=== PATIENT | female | born 1960 | race Caucasian/White ===

== ENCOUNTER 2018-11-06 09:13 | Inpatient (IN) ==
--- NOTE | 2018-09-24 10:06 | PAT Medication Instructions ---
Medication Instructions Date of Service September 24, 2018 Home Medications acetaminophen 1,000 mg PO Q6H PRN albuterol sulfate 2 puff INHALATION Q6H PRN atorvastatin 20 mg PO QAM buspirone 5 mg PO TID clonidine HCl 0.2 mg PO HS fluticasone propion-salmeterol [Advair Diskus] 1 inh INHALATION BID PRN furosemide [Lasix] 40 mg PO TID gabapentin 300 mg PO TID hydrocodone-acetaminophen [[place]] 1 tab PO Q6H PRN lisinopril 10 mg PO QAM loratadine 10 mg PO QAM meloxicam 15 mg PO QAM potassium chloride 10 meq PO TID ASK your surgeon for instructions meloxicam 15 mg PO QAM DO NOT take the morning of surgery furosemide [Lasix] 40 mg PO TID lisinopril 10 mg PO QAM loratadine 10 mg PO QAM potassium chloride 10 meq PO TID Take morning of surgery With a small sip of water, OTHERWISE NOTHING TO EAT OR DRINK AFTER MIDNIGHT: acetaminophen 1,000 mg PO Q6H PRN (if needed, may be taken up to four hours before surgery) albuterol sulfate 2 puff INHALATION Q6H PRN (if needed, and bring with you to the hospital) atorvastatin 20 mg PO QAM buspirone 5 mg PO TID fluticasone propion-salmeterol [Advair Diskus] 1 inh INHALATION BID PRN (if needed) gabapentin 300 mg PO TID hydrocodone-acetaminophen [[place]] 1 tab PO Q6H PRN (if needed) Take evening before surgery acetaminophen 1,000 mg PO Q6H PRN (if needed) albuterol sulfate 2 puff INHALATION Q6H PRN (if needed) buspirone 5 mg PO TID clonidine HCl 0.2 mg PO HS fluticasone propion-salmeterol [Advair Diskus] 1 inh INHALATION BID PRN (if needed) furosemide [Lasix] 40 mg PO TID gabapentin 300 mg PO TID hydrocodone-acetaminophen [[place]] 1 tab PO Q6H PRN (if needed) potassium chloride 10 meq PO TID Other Notes If you have any questions please call us at [phone] or [phone] or [phone] or [phone]
--- NOTE | 2018-09-24 11:13 | Anesthesiology Consultation ---
Date of Service September 24, 2018 Assessment & Plan (1) Encounter for pre-operative examination: Pending surgeon ordered clearances: PCP (Andre) 09/25 Cardio (Dayana) 09/25 Pulm (Mary) 09/26 PER SURGEONS OFFICE PATIENT WAS NOT CLEARED AND SURGERY IS BEING CANCELED. Chart Review Chart Review: Pending: Refer to Additional Notes / Consult section and Patient seen in Pre Admission Testing Teaching & Discussion Instructed NPO after midnight before surgery, except medications with 15 cc of water. Medication instructions provided according to the PAT guidelines. History Surgery Operation Date: 10/04/18 07:30 Proposed Procedures p Right Robotic Laparoscopic Assisted Partial Nephrectomy - Rene Carroll II, DO Height/Weight Height: 5 ft 6 in Weight: 175.9 kg Allergies Allergy/AdvReac Type Severity Reaction Status Date / Time acetaminophen [From Percocet] AdvReac Vomiting Verified 09/19/18 10:10 oxycodone [From Percocet] AdvReac Vomiting Verified 09/19/18 10:10 Medications Home Medications Medication Instructions Recorded Confirmed Last Taken acetaminophen 1,000 mg PO Q6H PRN 09/19/18 09/19/18 Unknown albuterol sulfate 2 puff INHALATION Q6H PRN 09/19/18 09/19/18 Unknown atorvastatin 20 mg PO QAM 09/19/18 09/19/18 Unknown buspirone 5 mg PO TID 09/19/18 09/19/18 Unknown clonidine HCl 0.2 mg PO HS 09/19/18 09/19/18 Unknown fluticasone propion-salmeterol 1 inh INHALATION BID PRN 09/19/18 09/19/18 Unknown [Advair Diskus] furosemide [Lasix] 40 mg PO TID 09/19/18 09/19/18 Unknown gabapentin 300 mg PO TID 09/19/18 09/19/18 Unknown hydrocodone-acetaminophen [[place]] 1 tab PO Q6H PRN 09/19/18 09/19/18 Unknown lisinopril 10 mg PO QAM 09/19/18 09/19/18 Unknown loratadine 10 mg PO QAM 09/19/18 09/19/18 Unknown meloxicam 15 mg PO QAM 09/19/18 09/19/18 Unknown potassium chloride 10 meq PO TID 09/19/18 09/19/18 Unknown levothyroxine [Synthroid] 75 mcg PO QAM 09/24/18 09/24/18 Unknown Past Medical History Medical History Anxiety Asthma CHF (congestive heart failure) 2015 acute diastolic, pt reports 2/2 sleep apnea. Seeing cardiology prior to surgery. Cervical radiculitis Pain radiating down LUE Chronic back pain radiates down RLE. Depression HTN (hypertension) Hyperlipidemia Kidney function abnormal Kidney mass Rt Lower extremity weakness RLE - chronic, 2/2 lumbar radiculopathy/spinal stenosis Obesity On home oxygen therapy 3 LPM QHS with CPAP. Has portable O2 to use prn daytime, but has not used Seasonal allergies Sleep apnea CPAP Exercise / Class Metabolic Activity II 4-5 Yardwork/Stairs/Walk up hill (Goes up full flight of stairs daily, denies CP or SOB with this, but activity is limited overall by pain) Past Family History Family History Mother Cancer Aunt Cancer Uncle Cancer Past Surgical History Surgical History History of appendectomy History of cholecystectomy History of fusion of cervical spine History of shoulder surgery left History of tonsillectomy History of tubal ligation Past Anesthesia History No Family Hx of Anesthesia Complications and Other Pt reports waking up "on a ventilator" in the ICU after 2016 cholecystectomy but is unsure why. Has had sedation for colonoscopies since without issue but no other GA since. History of PONV No Hx of PONV and No Hx of Motion Sickness Social History Smoking Status: Current every day smoker tobacco type: cigarettes Smoking cigarettes per day: 1/2 ppd Do You Dip or Chew Tobacco: No Hx Alcohol Use: No Hx Substance Use: No Review of Systems Pt denies any recent chest pain, shortness of breath, palpitations, cough, fever or URI. Physical Exam Vital Signs BP: 112/73 P: 57bpm SPO2: 97% RA T: 98.1 F R: 20 Constitutional + morbidly obese ENMT Mouth: + dentures (upper and lower) and + edentulous Thyromental Distance: > or= 3.5 Finger Breadths (4? Difficult to asses 2/2 neck thickness) Mallampati Class: I Neck + short neck and + thick neck; neck extension not limited Respiratory normal respiratory effort Auscultation: lungs clear to auscultation bilaterally and + diminished lung sounds (mildly B/L) Cardiovascular Rate/Rhythm: regular rhythm and + bradycardic Heart Sounds: no murmur Vessels: no carotid bruit Extremities: + edema (R > L lymphedema) Testing Laboratory Results 09/24/18 11:50 09/24/18 11:50 Urine Color Yellow 09/24/18 Unknown Urine Appearance Clear (Clear) 09/24/18 Unknown Urine pH 5.0 (4.5-7.5) 09/24/18 Unknown Ur Specific [place] 1.018 (1.000-1.030) 09/24/18 Unknown Urine Protein Negative (Negative) 09/24/18 Unknown Urine Glucose (UA) Negative (Negative) 09/24/18 Unknown Urine Ketones Negative (Negative) 09/24/18 Unknown Urine Nitrite Negative (Negative) 09/24/18 Unknown Ur Leukocyte Esterase Trace (Negative) H 09/24/18 Unknown Urine WBC (Auto) 1-5 /hpf (0-5) 09/24/18 Unknown Urine RBC (Auto) 0-4 /hpf (0-4) 09/24/18 Unknown U Hyaline Cast (Auto) 1-5 /lpf (0-5) 09/24/18 Unknown U Epithel Cells (Auto) >30 /lpf (0-5) H 09/24/18 Unknown Urine Bacteria (Auto) 1+ (Negative) H 09/24/18 Unknown Blood Type O Positive 09/24/18 11:50 Antibody Screen NEGATIVE 09/24/18 11:50 09/24/18 Unknown Urine Culture - Final Urine,Clean Catch More than three types of organisms present, all moderate counts mixed probable skin mey. No further identifications or sensitivities to follow. Electrocardiogram Date: 09/24/18 Findings: + SB @ (53 with PACs) Chest X-Ray Date: 09/24/18 FINDINGS: PA and lateral chest radiographs are obtained. No prior studies are available for comparison at the time of dictation. The examination is degraded by large body habitus. The heart is enlarged. The pulmonary vasculature is noncongested. Bibasilar atelectasis is noted. No airspace consolidation or large pleural effusion is identified. There is no pneumothorax. The skeletal structures are osteopenic. The bony thorax appears intact. Fusion hardware is noted in the lower cervical spine. IMPRESSION: Cardiomegaly with no active disease in the chest.
--- NOTE | 2018-09-24 12:41 | XRay Report ---
TWO VIEW CHEST CLINICAL HISTORY: Preoperative examination. FINDINGS: PA and lateral chest radiographs are obtained. No prior studies are available for compariso n at the time of dictation. The examination is degraded by large body habitus. The heart is enlarged. The pulmonary vasculature is noncongested. Bibasilar atelectasis is noted. No airspace consolidation or large pleural effusion is identified. There is no pneumothorax. The skeletal structures are osteo penic. The bony thorax appears intact. Fusion hardware is noted in the lower cervical spine. IMPRESSION: Cardiomegaly with no active disease in the chest. Electronically signed by: Oleksandr Pennington M.D. 09/24/2018 12:40 PM
[2018-09-24 13:19] LABS: Basophils # (auto) 0.04 K/uL (0-0.2); Basophils % (auto) 0.5 %; Eosinophils # (auto) 0.19 K/uL (0-0.5); Eosinophils % (auto) 2.4 %; Hematocrit (blood only) 43.3 % (37-47); Hemoglobin 14.2 g/dL (12.0-16.0); Immature Granulocytes # (auto) 0.02 K/uL (0.00-0.02); Immature Granulocytes % (auto) 0.3 %; Lymphocytes # (auto) 2.81 K/uL (1.2-3.4); Lymphocytes % (auto) 35.6 %; Mean Corpuscular Hgb Conc 32.8 g/dL (32-36); Mean Corpuscular Volume 96.7 fL (80-100); Mean Platelet Volume 10.7 fL (7.4-10.4); Monocytes # (auto) 0.57 K/uL (0.11-0.59); Monocytes % (auto) 7.2 %; Neutrophils # (auto) 4.26 K/uL (1.4-6.5); Platelet Count 238 K/uL (130-400); RDW Standard Deviation 49.9 fL (36.4-46.3); Red Blood Count 4.48 M/uL (4.2-5.4); White Blood Count 7.89 K/uL (4.8-10.8)
[2018-09-24 13:26] LABS: BUN Creatinine Ratio 18.1 (10-20); Calcium 9.5 mg/dl (8.5-10.1); Creatinine Clr Calc Pharmacy 123.6 ml/min; Est GFR (African American) 90.1; Est GFR (Non-African American) 77.7; Potassium 4.1 mmol/L (3.5-5.1)
[2018-09-24 13:53] LABS: Appearance Urine Clear (Clear); Bacteria Urine Automated 1+ (Negative); Bilirubin Urine Negative (Negative); Blood Urine Negative (Negative); Color Urine Yellow; Epithelial Cell Urine Auto >30 /lpf (0-5); Glucose Urine UA Negative (Negative); Ketones Urine Negative (Negative); Leukocyte Esterase Urine Trace (Negative); Nitrite Urine Negative (Negative); Protein Urine Negative (Negative); RBC Urine Automated 0-4 /hpf (0-4); Specific Gravity Urine 1.018 (1.000-1.030); Urobilinogen Urine Negative (Negative)
[~2018-11-06 09:13] MED LIST: CEFAZOLIN 3000MG 65 ML IV SCH; LACTATED RINGER'S 1,000 ML IV SCH
[2018-11-06] MEDS ORDERED: ONDANSETRON INJ 2 MG/ML 2 ML VIAL ONE ×2 (10:11→13:28)
[2018-11-06] MEDS ORDERED: DEXAMETHASONE SOD INJ 4 MG/ML VIAL ONE (10:11)
[2018-11-06] MEDS ORDERED: NEOSTIGMINE METHYLSULFATE 5 MG/5 ML SYR ONE (10:11)
[2018-11-06] MEDS ORDERED: GLYCOPYRROLATE 0.2 MG/ML VIAL ONE ×2 (10:11→16:07)
[2018-11-06] MEDS ORDERED: MIDAZOLAM HCL 1 MG/ML 2ML VIAL ONE (10:11)
[2018-11-06] MEDS ORDERED: fentaNYL citrate 100 MCG/2 ML VIAL ONE ×3 (10:11→17:20)
[2018-11-06] MEDS ORDERED: PROPOFOL IV EMULSION 10 MG/ML 20 ML VIAL IV ONE (10:11)
[2018-11-06] MEDS ORDERED: LIDOCAINE HCL 2% 2 ML VIAL/AMP(20MG/ML) INFIL ONE (10:11)
--- NOTE | 2018-11-06 10:34 | History & Physical Bridge Note ---
Date of Service November 06, 2018 History & Physical Bridge Note I have examined the patient, reviewed the History & Physical and in the interval since the performance of the History & Physical I have noted the following changes of clinical significance: no changes noted
[2018-11-06] MEDS ORDERED: GELATIN SPONGE SZ 100 ONE (11:07)
[2018-11-06] MEDS ORDERED: BUPIVACAINE 0.5 % 5 MG/1 ML MPF 30ML VIAL ONE (11:07)
[2018-11-06] MEDS ORDERED: METOCLOPRAMIDE HCL INJ 5 MG/ML 2 ML VIAL IV PRN (11:32)
[2018-11-06] MEDS ORDERED: ATROPINE SULFATE 0.1 MG/ML 10ML SYR IV PRN (11:32)
[2018-11-06] MEDS ORDERED: PROMETHAZINE HCL 12.5 MG in SODIUM CHLORIDE 0.9% 50 ML IV PRN (11:32)
[2018-11-06] MEDS ORDERED: ONDANSETRON INJ 2 MG/ML 2 ML VIAL IV PRN (11:32)
[2018-11-06] MEDS ORDERED: MoRPHine SULFATE 10 MG/ML CARP/VIAL IV PRN (11:32)
[2018-11-06] MEDS ORDERED: fentaNYL citrate 100 MCG/2 ML VIAL IV PRN (11:32)
[2018-11-06] MEDS ORDERED: ePHEDrine sulfate 50 MG/ML AMP IV PRN (11:32)
[2018-11-06] MEDS ORDERED: FLOSEAL HEMOSTATIC MATRIX 10ML TOP ONE (13:03)
[2018-11-06] MEDS ORDERED: TISSEEL FIBRIN SEALANT 10ML TOP ONE (13:48)
[2018-11-06] MEDS ORDERED: ALBUTEROL HFA INHALER 8.5 GM ONE (14:49)
[2018-11-06] MEDS ORDERED: SURGICEL ABSORB HEMOSTAT 2IN X 14IN TOP ONE (15:37)
[2018-11-06] MEDS ORDERED: ALBUMIN HUMAN 5% 12.5 GM/250 ML VIAL IV ONE (15:51)
[2018-11-06] MEDS ORDERED: CEFAZOLIN 250 MG/ML 1 GM VIAL ONE (16:01)
[2018-11-06] MEDS ORDERED: SODIUM CHLORIDE 0.9% INJ 10 ML VIAL ONE (16:01)
--- NOTE | 2018-11-06 17:09 | Post Operative Brief Note ---
Immediate Post Op Note v1 Date of Surgery November 06, 2018 Pre & Post Diagnosis Operation Date: 11/06/18 11:10 Pre-Op Diagnosis: Right Renal Mass Post-Op Diagnosis: Right Renal Mass Procedure Operation Date: 11/06/18 11:10 Actual Procedures p Right Robotic Laparoscopic Assisted Partial Nephrectomy(Right) - Rene Carroll II, DO Surgeon Rene Carroll II, DO Warehouse Handler Slime BRASHER and Baldev BRENNAN Estimated Blood Loss 150 Findings Consistent with Post-Op Diagnosis Specimens Partial Right Nephrectomy Drains Horowitz Catheter and Ashutosh-Hernandez Drain (10 mm flat) Anesthesia Type General Complications none Disposition Disposition: Recovery Room Overlapping Procedure I was present for: the critical portions of procedure. I was immediately available: during the entire case. Back up surgeon: used during listed procedure.
[2018-11-06 17:34] LABS: Basophils # (auto) 0.02 K/uL (0-0.2); Basophils % (auto) 0.1 %; Eosinophils # (auto) 0.01 K/uL (0-0.5); Eosinophils % (auto) 0.1 %; Hemoglobin 14.7 g/dL (12.0-16.0); Immature Granulocytes # (auto) 0.05 K/uL (0.00-0.02); Immature Granulocytes % (auto) 0.3 %; Lymphocytes # (auto) 1.71 K/uL (1.2-3.4); Lymphocytes % (auto) 10.6 %; Mean Corpuscular Volume 95.2 fL (80-100); Monocytes # (auto) 0.18 K/uL (0.11-0.59); Monocytes % (auto) 1.1 %; Neutrophils % (auto) 87.8 %; Platelet Count 232 K/uL (130-400); RDW Coefficient of Variation 14.3 % (11.5-14.5); RDW Standard Deviation 49.6 fL (36.4-46.3); Red Blood Count 4.62 M/uL (4.2-5.4); White Blood Count 16.17 K/uL (4.8-10.8)
[2018-11-06] MEDS ORDERED: HYDROmorphone INJ 1 MG/ML SYRINGE ONE (17:35)
[2018-11-06] MEDS ORDERED: ROCURONIUM BROMIDE 10 MG/ML 5 ML VIAL ONE (17:38)
[2018-11-06] MEDS ORDERED: LARYING-O-JET KIT (LTA) ONE (17:38)
[2018-11-06 17:55] LABS: BUN Creatinine Ratio 12.9 (10-20); Calcium 8.6 mg/dl (8.5-10.1); Creatinine Clr Calc Pharmacy 85.1 ml/min; Est GFR (African American) 58.3; Est GFR (Non-African American) 50.3; Potassium 3.9 mmol/L (3.5-5.1)
[2018-11-06] MEDS: HYDROmorphone INJ 1 MG/ML SYRINGE IV PRN ×2 (18:04→18:16)
[2018-11-06 18:06] LABS: Mean Corpuscular Hgb Conc 33.4 g/dL (32-36)
[2018-11-06] MEDS ORDERED: ACETAMINOPHEN 1000 MG/100 ML IV IV ONE (18:23)
[2018-11-06] MEDS ORDERED: ACETAMINOPHEN 1,000 MG/100 ML VIAL IV STA (18:32)
--- NOTE | 2018-11-06 18:58 | Anesthesiology Progress Note ---
Date of Service November 06, 2018 Anesthesia Post Procedure Vital Signs Vital Signs: Temp Pulse Pulse Resp BP Pulse Ox 11/06/18 18:45 73 18 116/63 92 11/06/18 18:35 72 18 131/68 92 11/06/18 18:25 78 18 126/67 93 11/06/18 18:15 80 15 124/83 92 11/06/18 18:05 78 16 127/71 94 11/06/18 17:55 79 15 124/73 95 11/06/18 17:45 74 17 136/71 97 11/06/18 17:35 79 18 111/60 97 11/06/18 17:26 36.5 C 83 25 H 155/80 H 94 11/06/18 09:52 36.7 C 66 20 129/74 94 Pain Intensity Left Hip: Pain Intensity: 10 Transfer of Care Handoff Completed per policy Notes Mental Status: alert / awake / arousable Patient Amnestic to Procedure: Yes Nausea / Vomiting: adequately controlled Pain: adequately controlled Airway Patency, RR, SpO2: stable & adequate BP & HR: stable & adequate Hydration State: stable & adequate Anesthetic Complications: no major complications apparent
[2018-11-06] MEDS ORDERED: ALBUTEROL HFA 8 GM INHALER INH PRN (19:42)
[2018-11-06] MEDS ORDERED: FLUTICASONE/SALMETEROL 250/50 (ADVAIR) 14 PUFF/1 INHALER INH PRN (19:42)
[2018-11-06] MEDS: LACTATED RINGER'S 1,000 ML IV SCH (19:45)
[2018-11-06] MEDS: CEFAZOLIN 2000MG 2,000 MG/15 ML SYR IV SCH (20:00)
--- NOTE | 2018-11-06 20:48 | XRay Report ---
XR chest 1V portable CLINICAL HISTORY: hypoxia COMPARISON STUDY: 09/24/2018 FINDINGS: The examination is limited from a technical standpoint due to the patient's large body habi tus. The cardiac silhouette is enlarged. There is suspected pulmonary vascular congestion. There is n o lobar consolidation. Postsurgical changes are present within the cervical spine[ IMPRESSION: 1. Cardiomegaly and suspected mild pulmonary vascular congestion 2. Technically limited study secondary to the patient's large body habitus 3. No evidence of lobar consolidation Electronically signed by: Román Whiting M.D. 11/06/2018 8:47 PM
[2018-11-06] MEDS: POTASSIUM CHLORIDE 10 MEQ TABCR PO SCH (21:23)
[2018-11-06] MEDS: FAMOTIDINE 20 MG in SYRINGE 3 ML IV SCH (21:24)
[2018-11-06] MEDS: DOCUSATE SODIUM 100 MG CAP PO SCH (21:24)
[2018-11-06] MEDS: HEPARIN SOD 5,000 UNIT/0.5 ML VIAL SQ SCH (21:24)
[2018-11-06] MEDS: cloNIDine HCl 0.1 MG TAB PO SCH (21:24)
[2018-11-06] MEDS: MoRPHine SULFATE 4 MG/ML 1 ML CARP\\VIAL IV PRN (22:19)
--- NOTE | 2018-11-06 23:54 | Hospitalist Consultation ---
Date of Consultation November 06, 2018 Assessment & Plan (1) Right renal mass: Status post right robotic laparoscopic assisted partial nephrectomy by Dr. Rene Carroll. Seen postoperatively is medically stable. Present on Admission?: Yes (2) Hypertension: Continue clonidine 0.2 mg p.o. at bedtime. Hold lisinopril for potential fluid fluctuation postoperatively. Present on Admission?: Yes (3) CHF (congestive heart failure): On Lasix 40 mg p.o. 3 times daily in the outpatient setting. Will be getting LR at 125 mL's per hour per primary team. Follow serial basic metabolic panel. May need to reduce Lasix to 20 mg p.o. 3 times daily or possibly hold altogether based on laboratories and clinical state Present on Admission?: Yes (4) Hyperlipidemia: Continue atorvastatin 20 mg every morning Present on Admission?: Yes (5) Peripheral neuropathy: Continue gabapentin 300 mg p.o. 3 times daily Present on Admission?: Yes (6) Anxiety: Continue buspirone 5 mg p.o. 3 times daily Present on Admission?: Yes (7) Hypothyroidism (acquired): Continue levothyroxine sodium 75 mcg every morning Present on Admission?: Yes (8) Asthma: Continue Advair Diskus twice daily and albuterol HFA 2 puffs every 6 hours as needed. Present on Admission?: Yes (9) Obstructive sleep apnea on CPAP: Patient is using home CPAP, and was noted to be tolerating it well the evening of admission. Chest x-ray performed post surgery, as reviewed by me, was unchanged from preop films. Present on Admission?: Yes (10) Allergic rhinitis: Continue loratadine 10 mg in the morning Present on Admission?: Yes History of Present Illness Reason for Consultation: The patient is seen status post right robotic laparoscopic assisted partial nephrectomy by Dr. Rene Carroll earlier in the day today. Requesting Physician: Rene Carroll II, DO Attending Physician: Rene Carroll II, DO History of Present Illness The patient is a 58-year-old female with a past medical history including hyperlipidemia, anxiety, hypertension, asthma, CHF, peripheral neuropathy, arthritis and hypothyroidism, who underwent a right robotic laparoscopic assisted partial nephrectomy earlier in the day, and is found to be medically stable. She does complain of expected postoperative pain. Allergies Allergy/AdvReac Type Severity Reaction Status Date / Time acetaminophen [From Percocet] AdvReac Vomiting Verified 11/06/18 09:47 oxycodone [From Percocet] AdvReac Vomiting Verified 11/06/18 09:47 Home Medications Home Medications Medication Instructions Recorded Confirmed Type acetaminophen 1,000 mg PO Q6H PRN 09/19/18 11/06/18 History albuterol sulfate 2 puff INHALATION Q6H PRN 09/19/18 11/06/18 History atorvastatin 20 mg PO QAM 09/19/18 11/06/18 History buspirone 5 mg PO TID 09/19/18 11/06/18 History clonidine HCl 0.2 mg PO HS 09/19/18 11/06/18 History fluticasone propion-salmeterol 1 inh INHALATION BID PRN 09/19/18 11/06/18 History [Advair Diskus] furosemide [Lasix] 40 mg PO TID 09/19/18 11/06/18 History gabapentin 300 mg PO TID 09/19/18 11/06/18 History hydrocodone-acetaminophen [[place]] 1 tab PO Q6H PRN 09/19/18 11/06/18 History lisinopril 10 mg PO QAM 09/19/18 11/06/18 History loratadine 10 mg PO QAM 09/19/18 11/06/18 History meloxicam 15 mg PO QAM 09/19/18 11/06/18 History potassium chloride 10 meq PO TID 09/19/18 11/06/18 History levothyroxine [Synthroid] 75 mcg PO QAM 09/24/18 11/06/18 History Patient History Medical History Anxiety Asthma CHF (congestive heart failure) 2014 acute diastolic, pt reports 2/2 sleep apnea. Seeing cardiology prior to surgery. Cervical radiculitis Pain radiating down LUE Chronic back pain radiates down RLE. Depression HTN (hypertension) Hyperlipidemia Kidney function abnormal Kidney mass Rt Lower extremity weakness RLE - chronic, 2/2 lumbar radiculopathy/spinal stenosis Obesity On home oxygen therapy 3 LPM QHS with CPAP. Has portable O2 to use prn daytime, but has not used Seasonal allergies Sleep apnea CPAP Surgical History History of appendectomy History of cholecystectomy History of fusion of cervical spine History of shoulder surgery left History of tonsillectomy History of tubal ligation Family History Mother Cancer Aunt Cancer Uncle Cancer Social History Preferred Language: Thai Communication Ability: Effective Set Up Inspector Required: No Beliefs That Will Affect Care: None Current Living Situation: Alone Other Information That Helps Us Care for You: No Feels Safe at Home: Yes Safety Concerns: Feels Safe At This Time Smoking Status: Current every day smoker Tobacco Type: cigarettes ; Cigarettes Per Day: 1/2 ppd ; Do You Dip or Chew Tobacco: No ; Second Hand Exposure: Yes ; Tobacco Cessation Education Requested by Patient: No Hx Alcohol Use: No Hx Substance Use: No Review of Systems Review of Systems: The patient denies chest pain, palpitations, shortness of breath, dyspnea on exertion, cough, lower extremity swelling, sore throat, fevers, chills, sweats, nausea, vomiting, diarrhea , constipation, blood in stool, lightheadedness, dizziness, headache, focal weakness, numbness or tingling in arms or legs, generalized arthralgias or myalgias, back or neck pain, or night sweats. The review of systems is otherwise negative other than for that already noted above, and at least 10 systems have been reviewed. Physical Exam Physical Exam: The patient is awake, alert and oriented 3, wearing her CPAP mask, lying in bed and in no acute distress. HEENT--PERRL, EOMI, mucous membranes and oropharynx dry. Neck--supple. No JVD. No bruits. Thyroid normal, trachea midline, no adenopathy. Heart--normal S1 and S2. No murmurs, rubs or gallops. Lungs--diminished breath sounds throughout, no respiratory distress, no accessory muscle use. Abdomen--normal bowel sounds and soft. Nontender. Nondistended. Morbidly obese Extremities--no cyanosis or clubbing. No edema. Dermatologic--normal skin turgor, normal color, no abnormal lymph nodes, no rash. Neurologic--cranial nerves II through XII grossly intact. Rheumatologic--limited exam Psychiatric--normal affect. Results & Data Vital Signs (Past 12 Hours) Vital Signs Temp Pulse Pulse Resp BP Pulse Ox 08/20/19 23:46 98.1 F 68 18 141/81 H 98 11/06/18 20:04 81 11/06/18 19:40 98.4 F 74 18 118/71 94 11/06/18 19:30 98.2 F 80 18 118/71 91 11/06/18 19:15 75 16 108/73 91 11/06/18 19:05 77 12 103/64 92 11/06/18 18:55 98.8 F 76 12 142/71 H 91 11/06/18 18:45 73 18 116/63 92 11/06/18 18:35 72 18 131/68 92 11/06/18 18:25 78 18 126/67 93 11/06/18 18:15 80 15 124/83 92 11/06/18 18:05 78 16 127/71 94 11/06/18 17:55 79 15 124/73 95 11/06/18 17:45 74 17 136/71 97 11/06/18 17:35 79 18 111/60 97 11/06/18 17:26 97.7 F 83 25 H 155/80 H 94 Laboratory Results Laboratory Results WBC 16.17 K/uL (4.8-10.8) H 11/06/18 17:25 RBC 4.62 M/uL (4.2-5.4) 11/06/18 17:25 Hgb 14.7 g/dL (12.0-16.0) 11/06/18 17:25 Hct 44.0 % (37-47) 11/06/18 17:25 MCV 95.2 fL (80-100) 11/06/18 17:25 MCH 31.8 pg (25-34) 11/06/18 17:25 MCHC 33.4 g/dL (32-36) 11/06/18 17:25 RDW Std Deviation 49.6 fL (36.4-46.3) H 11/06/18 17:25 RDW Coeff of Maria [place] 14.3 % (11.5-14.5) 11/06/18 17:25 Plt Count 232 K/uL (130-400) 11/06/18 17:25 MPV 10.0 fL (7.4-10.4) 11/06/18 17:25 Immature Gran % (Auto) 0.3 % 11/06/18 17:25 Neut % (Auto) 87.8 % 11/06/18 17:25 Lymph % (Auto) 10.6 % 11/06/18 17:25 Richardson % (Auto) 1.1 % 11/06/18 17:25 Eos % (Auto) 0.1 % 11/06/18 17:25 Baso % (Auto) 0.1 % 11/06/18 17:25 Immature Gran # (Auto) 0.05 K/uL (0.00-0.02) H 11/06/18 17:25 Neut # (Auto) 14.20 K/uL (1.4-6.5) H 11/06/18 17:25 Lymph # (Auto) 1.71 K/uL (1.2-3.4) 11/06/18 17:25 Richardson # (Auto) 0.18 K/uL (0.11-0.59) 11/06/18 17:25 Eos # (Auto) 0.01 K/uL (0-0.5) 11/06/18 17:25 Baso # (Auto) 0.02 K/uL (0-0.2) 11/06/18 17:25 Sodium 141 mmol/L (136-145) 11/06/18 17:25 Potassium 3.9 mmol/L (3.5-5.1) 11/06/18 17:25 Chloride 105 mmol/L (98-107) 11/06/18 17:25 Carbon Dioxide 24 mmol/L (21-32) 11/06/18 17:25 Anion Gap 12.0 (3-11) H 11/06/18 17:25 BUN 15 mg/dl (7-18) 11/06/18 17:25 Creatinine 1.19 mg/dl (0.6-1.2) 11/06/18 17:25 Est Cr Clr Drug Dosing 85.1 ml/min 11/06/18 17:25 Est GFR ( Amer) 58.3 11/06/18 17:25 Est GFR (Non-Af Amer) 50.3 11/06/18 17:25 BUN/Creatinine Ratio 12.9 (10-20) 11/06/18 17:25 Glucose 158 mg/dl (70-99) H 11/06/18 17:25 Calcium 8.6 mg/dl (8.5-10.1) 11/06/18 17:25 Urine Color Yellow 09/24/18 Unknown Urine Appearance Clear (Clear) 09/24/18 Unknown Urine pH 5.0 (4.5-7.5) 09/24/18 Unknown Ur Specific [place] 1.018 (1.000-1.030) 09/24/18 Unknown Urine Protein Negative (Negative) 09/24/18 Unknown Urine Glucose (UA) Negative (Negative) 09/24/18 Unknown Urine Ketones Negative (Negative) 09/24/18 Unknown Urine Blood Negative (Negative) 09/24/18 Unknown Urine Nitrite Negative (Negative) 09/24/18 Unknown Urine Bilirubin Negative (Negative) 09/24/18 Unknown Urine Urobilinogen Negative (Negative) 09/24/18 Unknown Ur Leukocyte Esterase Trace (Negative) H 09/24/18 Unknown Urine WBC (Auto) 1-5 /hpf (0-5) 09/24/18 Unknown Urine RBC (Auto) 0-4 /hpf (0-4) 09/24/18 Unknown U Hyaline Cast (Auto) 1-5 /lpf (0-5) 09/24/18 Unknown U Epithel Cells (Auto) >30 /lpf (0-5) H 09/24/18 Unknown Urine Bacteria (Auto) 1+ (Negative) H 09/24/18 Unknown Hepatitis C Ab Screen Neg (Neg) 11/06/18 09:36 Blood Type O Positive 09/24/18 11:50 Antibody Screen NEGATIVE 09/24/18 11:50 Diagnostic Findings [place], [place] [phone] XRay Report Patient: GAMA MARROQUIN Date: 11/06/18 MR#: [id number]: [id number] Acct ID:[id number]: Date: 1960ty Zip: [id number] Age: 58Location: 2E Sex: F Room/Bed: [facility] Att Phy: Rene Carroll, II, DODiagnosis: Right Renal Mass Gretchen Phy: Eben Cortes D.O.Service Date: 11/06/18 Fam Phy: Interpreting Phy: Román Whiting MD Admit Phy: Rene Carroll, II, DO Ordering Phy: Brant Jones M.D. cc: ~ XR chest 1V portable CLINICAL HISTORY: hypoxia COMPARISON STUDY: 09/24/2018 FINDINGS: The examination is limited from a technical standpoint due to the patient's large body habitus. The cardiac silhouette is enlarged. There is suspected pulmonary vascular congestion. There is no lobar consolidation. Postsurgical changes are present within the cervical spine[ IMPRESSION: 1. Cardiomegaly and suspected mild pulmonary vascular congestion 2. Technically limited study secondary to the patient's large body habitus 3. No evidence of lobar consolidation Electronically signed by: Román Whiting M.D. 11/06/2018 8:47 PM Dictated: 11/06/182045 Transcribed: 11/06/182045 PG Care Time/CCT Total # of Minutes Spent Total Time Spent with Patient: Total time spent is greater than 50% in coordination of care (as documented) at patient's floor/unit and/or counseling patient:
[2018-11-06] MEDS: OXYCODONE HCL IR 5 MG TAB (IMMEDIATE RELEASE) PO PRN (23:57)
[2018-11-07] MEDS: MoRPHine SULFATE 4 MG/ML 1 ML CARP\\VIAL IV PRN ×2 (02:20→15:38)
--- NOTE | 2018-11-07 03:16 | Operative Report ---
Post Operative Report Pre & Post Diagnosis Operation Date: 11/06/18 11:10 Pre-Op Diagnosis: Right Renal Mass Post-Op Diagnosis: Right Renal Mass Procedure Operation Date: 11/06/18 11:10 Actual Procedures p Right Robotic Laparoscopic Assisted Partial Nephrectomy(Right) with extensive lysis of adhesions - Rene Carroll II, DO Surgeon Rene Carroll II, DO [employer] Slime BRASHER and Baldev BRENNAN Estimated Blood Loss 150 Findings Consistent with Post-Op Diagnosis Approx 4.1 cm mass of lower pole of right kidney with extensive adhesions throughout abdomen Specimens Right Partial nephrectomy Drains 16 Fr pitts 10 Fr REINA Drain Anesthesia Type General Complications none Disposition Disposition: Recovery Room Indications 4.1 cm mass of lower pole of right kidney. Risks and benefits discussed at length. Description of Procedure The patient was brought to the operative suite and placed under general endotracheal intubation anesthesia in the supine position. The patient was transferred to the lateral position with the operative side up. At this point, the patient prepped and draped in the usual sterile fashion and a timeout was completed. Preoperative antibiotics of Ancef 3 grams had been given. JULIANNA's and SCD's were placed on the patient's lower extremities. A catheter was placed using sterile technique. With the time out completed the patient was flexed and the skin was marked. The lateral camera port site was anesthetized. A small incision was made into the skin and subcutaneous tissues. A Varess needle was selected and placed. The needle was easily moved and it was irrigated and aspirated without any issues or concerns for placement. Insufflation commenced. Once insufflated, A camera po rt was placed with the camera and scope in the port to place under direct supervision. The cavity was insufflated to 12mmHG. A laparoscopic camera was placed and the abdominal cavity inspected. No concerning features were noted, however a severe amount of adhesions were discovered. At this point, the skin was marked for port placement and 8mm working ports were placed. The skin was anesthetized down to fascia and an approx 1cm incision was made to place the 2 x 8mm ports. Multiple adhesions along the body wall and medial to the ports were lysed and retracted. Approx 22 minutes to clear a field without adhesions to allow further port placement. Two 10 mm assistant center manager ports were also placed in similar fashion under direct visualization. The robot was positioned and docked. The camera was placed and all trocars were positioned under direct visualization. ANSHU Jorge was integral in port placement, camera utilization, and docking procedure. She remained in sterile attire and then proceeded to assist the remainder of the case. Dr. Pablo De Paz was readily available for assistance during reed portions of the proceeding procedure. assumed the law office assistant role for the major portion of mass removal, vessel clamping, and closure of the kidney. He also assisted with dissection of the hilum. At this point, I transitioned to the robotic console. The colon was mobilized medially to expose the retroperitoneum and the area assessed. Additional Adhesions were freed to allow mobilization. A moderate amount of adhesions were noted from the colon and abdominal side wall from the previous surgery. These were mobilized and were freed. These were dissected with blunt technique. Cautery was used to assist dissection and control bleeding. The retroperitoneal fat was assessed. Due to patients habitus as well as a large amount of retroperitoneal fat, dissection did prove difficult at times. The kidney was exposed towards the medial lower pole. This helped to identify the ureter and gonadal vein were identified. The ureter was isolated and dissection was taken superiorly. This was followed to the renal pelvis. The Renal Artery and Vein were then cleaned and exposed. The tissue planes developed nicely but dissection was slowed due to previous surgery on the right adrenal. Clamp placement was assessed and good access was achieved. The perirenal fat anterior to the kidney was then dissected. The lower pole of the kidney and surrounding tissues were exposed. The kidney was then further mobilized. The ultrasound probe was placed and the dilated calyx was further examined. The edges were marked. The mass was fully assesed and found to be approx 40% exophytic and approx 4.1 cm in size. The Vessels were assessed a final time. 2 x Bulldog clamps were placed on the vein after 1 x Bulldog clamp on the artery. A small anterior venous branch had not sealed completely with cautery. A 4-0 PDS suture was used to close the venous branch with a figure of 8 stitch. The kidney appeared to ahmet appropriately. The previously marked margins were used to start the incision into the kidney. A good margin was maintained and the mass completely excised using sharp dissection with the scissors. Some small vessels were fulgurated. Excision did not appear to go down to the collecting system. The base of the wound bed was assessed a final time. A 2-0 V-lock barbed suture with a hemolock on the end was then placed and a deep closure was completed of the tissues. This was completed in a running fashion with intermittent placement of hemolocks. These were then positioned and tightened. Care was taken to bloster and completely close the edges of the kidney together. Finally, a 2-0 Vicryl sutures were then used to close a capsular laceration on the lower pole with a figure of 8 stitch. At this point, the bulldog clamps were removed. Please see perioperative report for further details and times. The kidney was full assessed after removal of clamps. No bleeding or other major areas of concern. Weck and Hemolock clips were used to bolster and tightened to approximate the edges. Socrates-seal agent was placed over the incision followed by a surgicel hemostatic agent sheet. This was then covered with Tisseel spray hemostatic agent. Additional pieces of the surgicel sheet were placed under the liver and also placed on the vessels. No major bleeding or other issues. The excised tissues were then placed in an endocatch bag for removal. A Flat drain was placed through the inferior assistant center manager port and the port was removed. It was positioned in the gutter lateral to the liver and colon. This was secured with a nylon 3-0 suture. The entire dissection space was inspected one final time. No bleeding or injuries or areas of concern were noted. No tumor or other concerning features were noted. At this point, the robot was undocked and moved away from the patient. The port sites were all assessed laparoscopically. The endoscopic bag was moved into the perimedian port and removed through the incision after it was extended and the fascia further opened while under direct visualization.. The lateral 10 mm port site was closed with the [place] device. The other ports were assessed and no issues observed. The skin at each site was closed with a running Monocryl suture. A 1-0 PDS was used to close the fascia and then a running Vicryl 2-0 suture had been used to approximate the subcutaneous tissues of the extended incision. This skin was also approximated with a running 4-0 monocryl. The area was cleaned and glue placed on each incision. All counts were completed and correct x 2. The patient was cleaned and bandaged. She was moved back into the supine position The patient was cleaned, aroused from anesthesia, and transferred to the pacu in stable condition having tolerated the procedure well with no complications. I was present and participated in all aspects of the procedure. Pablo De Paz MD was integral in the major portion of the procedure as above. ANSHU Jorge was critical in the portions as mentioned above. I attest to the content of the Intraoperative Record and any orders documented therein. Any exceptions are noted below. I attest to the content of the Intraoperative Record and any orders documented therein. Any exceptions are noted below.
[2018-11-07] MEDS: LACTATED RINGER'S 1,000 ML IV SCH (03:29)
[2018-11-07] MEDS: CEFAZOLIN 2000MG 2,000 MG/15 ML SYR IV SCH ×2 (04:42→11:51)
[2018-11-07] MEDS: LEVOTHYROXINE SODIUM 75 MCG TABLET PO SCH (05:45)
[2018-11-07 06:20] LABS: Basophils # (auto) 0.01 K/uL (0-0.2); Basophils % (auto) 0.1 %; Hemoglobin 13.8 g/dL (12.0-16.0); Immature Granulocytes # (auto) 0.03 K/uL (0.00-0.02); Immature Granulocytes % (auto) 0.2 %; Lymphocytes # (auto) 1.61 K/uL (1.2-3.4); Lymphocytes % (auto) 12.7 %; Mean Corpuscular Hgb Conc 32.9 g/dL (32-36); Mean Corpuscular Volume 95.5 fL (80-100); Mean Platelet Volume 10.3 fL (7.4-10.4); Monocytes # (auto) 1.01 K/uL (0.11-0.59); Neutrophils # (auto) 10.02 K/uL (1.4-6.5); Platelet Count 219 K/uL (130-400); RDW Coefficient of Variation 14.3 % (11.5-14.5); RDW Standard Deviation 50.1 fL (36.4-46.3); White Blood Count 12.68 K/uL (4.8-10.8)
[2018-11-07 06:53] LABS: Calcium 8.4 mg/dl (8.5-10.1); Creatinine Clr Calc Pharmacy 89.8 ml/min; Est GFR (Non-African American) 53.5; Potassium 4.2 mmol/L (3.5-5.1)
[2018-11-07] MEDS: OXYCODONE HCL IR 5 MG TAB (IMMEDIATE RELEASE) PO PRN ×3 (08:19→19:33)
--- NOTE | 2018-11-07 08:27 | Anesthesiology Progress Note ---
Date of Service November 07, 2018 Anesthesia Post Procedure Vital Signs Vital Signs: Temp Pulse Pulse Pulse Pulse Resp BP 11/07/18 07:36 36.7 C 70 24 115/60 11/07/18 03:12 36.7 C 61 19 125/67 11/06/18 23:46 36.7 C 68 18 141/81 H 11/06/18 22:20 68 11/06/18 20:04 81 11/06/18 19:40 36.9 C 74 18 118/71 11/06/18 19:30 36.8 C 80 18 118/71 11/06/18 19:15 75 16 108/73 11/06/18 19:05 77 12 103/64 11/06/18 18:55 37.1 C 76 12 142/71 H 11/06/18 18:45 73 18 116/63 11/06/18 18:35 72 18 131/68 11/06/18 18:25 78 18 126/67 11/06/18 18:15 80 15 124/83 11/06/18 18:05 78 16 127/71 11/06/18 17:55 79 15 124/73 11/06/18 17:45 74 17 136/71 11/06/18 17:35 79 18 111/60 11/06/18 17:26 36.5 C 83 25 H 155/80 H 11/06/18 09:52 36.7 C 66 20 129/74 Pulse Ox 11/07/18 07:36 90 11/07/18 03:12 96 11/06/18 23:46 98 11/06/18 22:20 11/06/18 20:04 11/06/18 19:40 94 11/06/18 19:30 91 11/06/18 19:15 91 11/06/18 19:05 92 11/06/18 18:55 91 11/06/18 18:45 92 11/06/18 18:35 92 11/06/18 18:25 93 11/06/18 18:15 92 11/06/18 18:05 94 11/06/18 17:55 95 11/06/18 17:45 97 11/06/18 17:35 97 11/06/18 17:26 94 11/06/18 09:52 94 Pain Intensity Left Hip: Pain Intensity: 10 Notes Mental Status: alert / awake / arousable and participated in evaluation Patient Amnestic to Procedure: Yes Nausea / Vomiting: adequately controlled Airway Patency, RR, SpO2: stable & adequate BP & HR: stable & adequate Hydration State: stable & adequate Anesthetic Complications: no major complications apparent and Pt Satisfied with anesthetic care
[2018-11-07] MEDS: POTASSIUM CHLORIDE 10 MEQ TABCR PO SCH ×3 (08:33→19:26)
[2018-11-07] MEDS: DOCUSATE SODIUM 100 MG CAP PO SCH ×2 (08:33→19:27)
[2018-11-07] MEDS: ATORVASTATIN 20 MG TAB PO SCH (08:33)
[2018-11-07] MEDS: LORATADINE 10 MG TAB PO SCH (08:33)
[2018-11-07] MEDS: HEPARIN SOD 5,000 UNIT/0.5 ML VIAL SQ SCH ×2 (08:33→20:07)
[2018-11-07] MEDS: FAMOTIDINE 20 MG in SYRINGE 3 ML IV SCH ×2 (08:35→20:46)
[2018-11-07] MEDS ORDERED: LISINOPRIL 10 MG TAB PO SCH (09:00)
[2018-11-07] MEDS: ACETAMINOPHEN 1,000 MG/100 ML VIAL IV PRN ×2 (10:51→20:49)
--- NOTE | 2018-11-07 11:36 | Urology Progress Note ---
Date of Service November 07, 2018 Assessment & Plan (1) Right renal mass: POD #1 s/p partial nephrectomy. Overall progressing appropriately. Expected incision pain and left hip discomfort c/w surgical positioning. Discussed with nursing who will utilize IV Tylenol on more scheduled basis for baseline pain control. -HL IVF. -Will restart home Lasix at reduced dose of 20mg TID. -Will advance diet to mechanical soft. Subjective 58 YO female POD #1 s/p partial nephrectomy. Patient reports some expected postoperative incisional pain this AM. Also reports pain in left hip consistent with surgical positioning. Has been OOB in chair. Has passed flatus. Tolerating clears without nausea. Horowitz not bothersome. No fevers/chills. Labs reviewed. Review of Systems Review of Systems: All systems reviewed & are unremarkable except as noted in HPI & below Physical Exam Physical Exam: NAD +obese. Resp effort normal. CV: Pedal pulses intact, diffuse non-pitting edema bilateral LE. Abd:+surgical site tenderness - incisions well approximated, surgical glue intact. REIAN intact w/ scant serosang drainage in bulb. Left hip: no skin breakdown or bruising visualized. : Horowitz intact, patent, draining light blood tinged urine. A&Ox3 appropriate affect. Results & Data Vital Signs (Past 12 Hours) Vital Signs Temp Pulse Pulse Pulse Resp BP BP 11/07/18 11:15 36.8 C 66 18 116/60 11/07/18 08:00 60 11/07/18 07:36 36.7 C 70 24 115/60 11/07/18 03:12 36.7 C 61 19 125/67 11/06/18 23:46 36.7 C 68 18 141/81 H Pulse Ox 11/07/18 11:15 89 L 11/07/18 08:00 11/07/18 07:36 90 11/07/18 03:12 96 11/06/18 23:46 98
[2018-11-07] MEDS: FUROSEMIDE 20 MG TAB PO SCH ×2 (13:59→19:26)
--- NOTE | 2018-11-07 16:51 | Hospitalist Progress Note ---
Date of Service November 07, 2018 Assessment & Plan (1) Right renal mass: Status post right robotic laparoscopic assisted partial nephrectomy by Dr. Rene Carroll POD 1 Seen postoperatively is medically stable. (2) Hypertension: Continue clonidine 0.2 mg p.o. at bedtime. Hold lisinopril for potential fluid fluctuation postoperatively. (3) CHF (congestive heart failure): On Lasix 40 mg p.o. 3 times daily in the outpatient setting. Will be getting LR at 125 mL's per hour per primary team. Follow serial basic metabolic panel. May need to reduce Lasix to 20 mg p.o. 3 times daily or possibly hold altogether based on laboratories and clinical state (4) Hyperlipidemia: Continue atorvastatin 20 mg every morning (5) Peripheral neuropathy: Continue gabapentin 300 mg p.o. 3 times daily (6) Anxiety: Continue buspirone 5 mg p.o. 3 times daily (7) Hypothyroidism (acquired): Continue levothyroxine sodium 75 mcg every morning (8) Asthma: Continue Advair Diskus twice daily and albuterol HFA 2 puffs every 6 hours as needed. (9) Obstructive sleep apnea on CPAP: Patient is using home CPAP, and was noted to be tolerating it well the evening of admission. Chest x-ray performed post surgery, as reviewed by me, was unchanged from preop films. (10) Allergic rhinitis: Continue loratadine 10 mg in the morning Subjective Patient seen and examined at the bedside. She is status post partial nephrectomy of the right kidney. patient complains of pain. Adjusted pain medication and pain management with oxycodone sustained-release and Percocet for breakthrough pain. Patient is afebrile. Cooperative. Patient denies fever chills chest pain shortness of breath frequency urgency hemoptysis melena. Patient drain from the right kidney stable. Wound clean dry and intact. Patient has Horowitz catheter in. Review of Systems Review of Systems: All systems reviewed & are unremarkable except as noted in HPI & below Physical Exam Constitutional: WD/WN, vitals as above + morbidly obese Eyes: PERRL, conjunctivae normal, anicteric sclerae ENMT: external ear and nose normal, oropharynx normal Neck: trachea midline, no thyromegaly Respiratory: normal respiratory effort, lungs clear to auscultation Cardiovascular: Rate/Rhythm: regular rate Heart Sounds: normal S1 and normal S2 Palpation: + palpable S4 2+ pitting edema bilaterally Gastrointestinal (Abdomen): Right kidney costovertebral angle nephrostomy tubing placed draining some serosanguineous fluid. REINA approximately 50 mils serosanguineous fluid. Incision clean dry and intact. Musculoskeletal: no cyanosis or clubbing, extremities motor strength 5/5 Skin: no rashes, warm and dry Results & Data Vital Signs (Past 12 Hours) Vital Signs Temp Pulse Pulse Resp BP BP Pulse Ox 11/07/18 16:00 60 11/07/18 15:22 36.5 C 66 20 114/65 91 11/07/18 11:15 36.8 C 66 18 116/60 89 L 11/07/18 08:00 60 11/07/18 07:36 36.7 C 70 24 115/60 90 PG Care Time/CCT Total # of Minutes Spent Total Time Spent with Patient: Total time spent is greater than 50% in coordination of care (as documented) at patient's floor/unit and/or counseling p atient:
[2018-11-07] MEDS: cloNIDine HCl 0.1 MG TAB PO SCH (19:26)
[2018-11-07] MEDS: ONDANSETRON INJ 2 MG/ML 2 ML VIAL IV PRN (19:33)
[2018-11-07] MEDS: OXYCODONE HCL 10 MG TABCR (OXYCONTIN) PO SCH (20:06)
[2018-11-08] MEDS: MoRPHine SULFATE 4 MG/ML 1 ML CARP\\VIAL IV PRN ×4 (01:29→18:37)
[2018-11-08] MEDS: ONDANSETRON INJ 2 MG/ML 2 ML VIAL IV PRN (01:35)
[2018-11-08] MEDS: LEVOTHYROXINE SODIUM 75 MCG TABLET PO SCH (06:14)
[2018-11-08 07:15] LABS: Basophils # (auto) 0.02 K/uL (0-0.2); Basophils % (auto) 0.2 %; Eosinophils # (auto) 0.06 K/uL (0-0.5); Eosinophils % (auto) 0.6 %; Hematocrit (blood only) 38.8 % (37-47); Hemoglobin 12.7 g/dL (12.0-16.0); Immature Granulocytes # (auto) 0.03 K/uL (0.00-0.02); Immature Granulocytes % (auto) 0.3 %; Lymphocytes # (auto) 1.88 K/uL (1.2-3.4); Lymphocytes % (auto) 17.6 %; Mean Corpuscular Hgb Conc 32.7 g/dL (32-36); Mean Platelet Volume 10.6 fL (7.4-10.4); Monocytes # (auto) 0.75 K/uL (0.11-0.59); Neutrophils # (auto) 7.97 K/uL (1.4-6.5); Neutrophils % (auto) 74.3 %; Platelet Count 188 K/uL (130-400); RDW Coefficient of Variation 14.2 % (11.5-14.5); RDW Standard Deviation 50.3 fL (36.4-46.3); Red Blood Count 4.04 M/uL (4.2-5.4); White Blood Count 10.71 K/uL (4.8-10.8)
[2018-11-08] MEDS: ATORVASTATIN 20 MG TAB PO SCH (07:34)
[2018-11-08] MEDS: DOCUSATE SODIUM 100 MG CAP PO SCH ×2 (07:35→20:16)
[2018-11-08] MEDS: FUROSEMIDE 20 MG TAB PO SCH (07:35)
[2018-11-08] MEDS: LORATADINE 10 MG TAB PO SCH (07:35)
[2018-11-08] MEDS: POTASSIUM CHLORIDE 10 MEQ TABCR PO SCH (07:35)
[2018-11-08] MEDS: HEPARIN SOD 5,000 UNIT/0.5 ML VIAL SQ SCH ×2 (07:36→20:16)
[2018-11-08] MEDS: FAMOTIDINE 20 MG in SYRINGE 3 ML IV SCH (07:42)
[2018-11-08] MEDS: OXYCODONE HCL 10 MG TABCR (OXYCONTIN) PO SCH (07:43)
[2018-11-08 07:52] LABS: BUN Creatinine Ratio 13.9 (10-20); Calcium 8.3 mg/dl (8.5-10.1); Creatinine Clr Calc Pharmacy 93.1 ml/min; Est GFR (African American) 64.8; Est GFR (Non-African American) 55.9; Potassium 3.9 mmol/L (3.5-5.1)
--- NOTE | 2018-11-08 09:21 | Hospitalist Progress Note ---
Date of Service November 08, 2018 Assessment & Plan (1) Right renal mass: Status post right robotic laparoscopic assisted partial nephrectomy by Dr. Rene Carroll POD 2. Improving slowly. Has multiple comorbidities. Avoid nephrotoxic agents (2) Hypertension: Continue clonidine 0.2 mg p.o. at bedtime. Hold lisinopril for potential fluid fluctuation postoperatively. (3) CHF (congestive heart failure): Patient appears to be volume overload and she again approximately 5000 cc in the previous 24 hours.. Started Lasix drip today. Strict in and out Daily weight Fluid [id number] Low-sodium diet CMP every 6 hours Physical therapy as per patient request (4) Hyperlipidemia: Continue atorvastatin 20 mg every morning (5) Peripheral neuropathy: Continue gabapentin 300 mg p.o. 3 times daily (6) Anxiety: Continue buspirone 5 mg p.o. 3 times daily (7) Hypothyroidism (acquired): Continue levothyroxine sodium 75 mcg every morning (8) Asthma: Continue Advair Diskus twice daily and albuterol HFA 2 puffs every 6 hours as needed. (9) Obstructive sleep apnea on CPAP: Patient is using home CPAP, and was noted to be tolerating it well the evening of admission. Chest x-ray performed post surgery, as reviewed by me, was unchanged from preop films. (10) Allergic rhinitis: Continue loratadine 10 mg in the morning (11) Elevated transaminase level: Appears to be multifactorial. Elevated liver enzymes so to AST 672--> 61 and ALT-->79, is no other labs available for comparison. Ultrasound of the liver: 1. Exam significantly compromised must by suboptimal penetration. Obscured pancreas. 2. No biliary ductal dilatation status post cholecystectomy. 3. Fatty infiltration of the liver. Toxicology shows that Tylenol level is less than 2 which is encouraging , but the anyway stopped all products that could contain Tylenol such as Percocet and Tylenol itself. Gastroenterology follows. Present on Admission?: Yes Subjective Patient seen and examined at the bedside. She is status post partial robotic laparoscopic assisted right nephrectomy.Patient complains of pain. She continues to require supplemental oxygen and she is right now on 2 L even though she was not using. Patient had net gain of 5000 cc from the day before. Started on Lasix drip in addition to ointment the metolazone and albumin is to shift the fluid from the third space. Also has elevated liver enzymes so to AST 672--> 61 and ALT-->79, is no other labs available for comparison. Ultrasound of the liver: 1. Exam significantly compromised must by suboptimal penetration. Obscured de [place]. 2. No biliary ductal dilatation status post cholecystectomy. 3. Fatty infiltration of the liver. Toxicology shows that Tylenol level is less than 2 which is encouraging , but the anyway stopped all products that could contain Tylenol such as Percocet and Tylenol itself. Gastroenterology follows. Patient is a febrile. Continue pain management with oxycodone sustained release and oxycodone immediate release and IV morphine as needed. Patient denies fever chills chest pain shortness of breath frequency urgency hemoptysis melena. Patient drain from the right kidney stable. Wound clean dry and intact. Patient has Horowitz catheter in. Review of Systems Review of Systems: All systems reviewed & are unremarkable except as noted in HPI & below Physical Exam Constitutional: WD/WN, vitals as above + morbidly obese Eyes: PERRL, conjunctivae normal, anicteric sclerae ENMT: external ear and nose normal, oropharynx normal Neck: trachea midline, no thyromegaly Respiratory: normal respiratory effort, lungs clear to auscultation Cardiovascular: Rate/Rhythm: regular rate Heart Sounds: normal S1 and normal S2 Palpation: + palpable S4 Bilateral 2+ pitting edema with chronic lymphatic stasis. Musculoskeletal: no cyanosis or clubbing, extremities motor strength 5/5 Skin: no rashes, warm and dry Results & Data Vital Signs (Past 12 Hours) Vital Signs Temp Pulse Pulse Pulse Resp BP Pulse Ox 11/08/18 07:45 36.6 C 74 20 121/73 89 L 11/08/18 03:52 36.8 C 72 19 136/70 92 11/07/18 23:33 36.9 C 61 19 97/61 L 92 11/07/18 22:20 54 L PG Care Time/CCT Total # of Minutes Spent Total Time Spent with Patient: Total time spent is greater than 50% in coordination of care (as documented) at patient's floor/unit and/or counseling patient:
[2018-11-08 10:11] LABS: Albumin Globulin Ratio 0.8 (0.9-2); Bilirubin,Total 0.9 mg/dl (0.2-1); Globulin 3.9 gm/dl (2.5-4.0); Total Protein 6.9 gm/dl (6.4-8.2)
[2018-11-08] MEDS: FUROSEMIDE 100 MG in DEXTROSE 5% 90 ML IV SCH (10:39)
[2018-11-08] MEDS: OXYCODONE HCL IR 5 MG TAB (IMMEDIATE RELEASE) PO PRN (10:49)
[2018-11-08] MEDS ORDERED: LAVAGE SOLUTION 4000ML PO SCH (11:15)
--- NOTE | 2018-11-08 11:25 | Gastrointestinal Consultation ---
Date of Consultation November 08, 2018 Assessment & Plan (1) Elevated transaminase level: This appears to be an acute AST/ALT elevation, most likely related to the long period of anesthesia and surgery yesterday. Also, considered are reaction to cefazolin or acetaminophen, non alcoholic fatty liver disease. Obstruction is considered and should be ruled out. 1. Liver US is pending. Will review results when available. 2. Agree with stopping the acetaminophen. Will check a stat serum acetaminophen level. 3. Maintain fluid/electrolyte balance, preventing dehydration and hypovolemia. 4. Will check LFTs again daily. 5. Will follow along. Present on Admission?: Yes Supervising Physician Co-Signing Physician Notes I have performed a history and physical examination of this patient and reviewed the electronic medical record. Specifically, on physical examination there is no significant abdominal tenderness. I have discussed the case with ANSHU Cordon. The above note reflects my findings, conclusions, and recommendations. Christiano Brady MD History of Present Illness Reason for Consultation: Transaminitis Requesting Physician: Dr. العراقي Attending Physician: Rene Carroll II, DO History of Present Illness Ms. Estefania Hurtado is a 58 yr old female pt of [facility] in [place]. She carries a hx of asthma, right sided heart failure, morbid obesity, WENCESLAO on night CPAP, hypothyroidism, anxiety and is S/P distant cholecystectomy. She underwent a 6 hr semi-elective robotic right partial nephrectomy here at [facility] on 11/07 (yesterday) by Dr. Crow. Today, AST = 672, ALT = 102, T Bili and Alk Phos are normal. We do not have any prior LFTs to compare but I was able to reach a nurse at this pt's PCP. She reviewed the pt's chart and tells me that in May 2018, ALT = 25, AST = 20, CT abd/pelvis with a stable, ill defined 25mm right hepatic lobe hypoechoic lesion that is stable compared to imaging in 2016, 5mm ?seroma in the gallbladder fossa. Risks: Acetaminophen: - Prescribed acetaminophen 1gram Q 6 but tells me that she hasn't taken this for months. - Received two doses of IV acetaminophen 1gram in the past 24 hrs, now LA'ed. Alcohol: none and was never a heavy drinker. Antibiotics: - Cephazolin: received one 2 gram dose IV yesterday (pre-operatively). Viral: denies any recent fevers or other viral symptoms. Low risk for Hep B/C. The pt is awake, alert, oriented and tells me that she did not have any abdominal pain, jaundice, icterus, dark urine or acholic stools prior to the surgery. Today, she has abdominal bloating and gassiness and feels constipated. Urine is light yellow, no jaundice or icterus. She is tolerating a soft diet without any after meal pain, nausea or vomiting. Allergies Allergy/AdvReac Type Severity Reaction Status Date / Time oxycodone [From Percocet] AdvReac Vomiting Verified 11/06/18 09:47 Home Medications Home Medications Medication Instructions Recorded Confirmed Type acetaminophen 1,000 mg PO Q6H PRN 09/19/18 11/17/18 History albuterol sulfate 2 puff INHALATION Q6H PRN 09/19/18 11/17/18 History atorvastatin 20 mg PO QAM 09/19/18 11/17/18 History buspirone 5 mg PO TID 09/19/18 11/17/18 History clonidine HCl 0.2 mg PO HS 09/19/18 11/17/18 History fluticasone propion-salmeterol 1 inh INHALATION BID PRN 09/19/18 11/17/18 History [Advair Diskus] furosemide [Lasix] 40 mg PO TID 09/19/18 11/17/18 History gabapentin 300 mg PO TID 09/19/18 11/17/18 History hydrocodone-acetaminophen [[place]] 1 tab PO Q6H PRN 09/19/18 11/17/18 History lisinopril 10 mg PO QAM 09/19/18 11/17/18 History loratadine 10 mg PO QAM 09/19/18 11/17/18 History meloxicam 15 mg PO QAM 09/19/18 11/17/18 History potassium chloride 10 meq PO TID 09/19/18 11/17/18 History levothyroxine [Synthroid] 75 mcg PO QAM 09/24/18 11/17/18 History docusate sodium [Colace] 100 mg PO BID PRN #60 cap 11/11/18 11/17/18 Rx oxycodone 5 mg PO BID PRN #14 tab 11/11/18 11/17/18 Rx Patient History Medical History Anxiety Asthma CHF (congestive heart failure) 2015 acute diastolic, pt reports 2/2 sleep apnea. Seeing cardiology prior to surgery. Cervical radiculitis Pain radiating down LUE Chronic back pain radiates down RLE. Depression HTN (hypertension) Hyperlipidemia Kidney function abnormal Kidney mass Rt Lower extremity weakness RLE - chronic, 2/2 lumbar radiculopathy/spinal stenosis Obesity On home oxygen therapy 3 LPM QHS with CPAP. Has portable O2 to use prn daytime, but has not used Seasonal allergies Sleep apnea CPAP Surgical History History of appendectomy History of cholecystectomy History of fusion of cervical spine History of shoulder surgery left History of tonsillectomy History of tubal ligation Family History Mother Cancer Aunt Cancer Uncle Cancer Social History Preferred Language: [place]ijani Communication Ability: Effective Winder Operator Required: No Beliefs That Will Affect Care: None marital status: Current Living Situation: Alone Current Living Situation Comment: sister lives in downstairs apartment Feels Safe at Home: Yes Smoking Status: Current every day smoker Tobacco Type: cigarettes ; Cigarettes Per Day: 1/2 ppd ; Second Hand Exposure: Yes ; Hx Alcohol Use: No Hx Substance Use: No Review of Systems Review of Systems: ROS: Gen: Denies weakness, fevers, + purposeful weight loss in preporation for weight loss surgery. Eyes: No icterus, No eye redness, pain, and no recent vision changes Resp: No SOB, no cough Cardio: No palpitations/irregular beats, no chest pain GI: No abdominal pain, no nausea/vomiting : Denies pain on urination, no jaundice Skin: No jaundice, itching or new rashes Physical Exam Constitutional: WD/WN, vitals as above + morbidly obese Eyes: PERRL, conjunctivae normal, anicteric sclerae ENMT: external ear and nose normal, oropharynx normal Neck: trachea midline, no thyromegaly Respiratory: normal respiratory effort, lungs clear to auscultation Cardiovascular: RRR, no murmur, no edema Gastrointestinal (Abdomen): Inspection/Auscultation: + abdomen distended Percussion/Palpation: + abdomen tender (difusely) hyperactive BS Musculoskeletal: no cyanosis or clubbing, extremities motor strength 5/5 Skin: no rashes, warm and dry no jaundice Neurologic: PERRL, EOMI, accommodation nl, no face palsy, no dysarthria Psychiatric: A+Ox3, euthymic affect Lymphatic: no cervical or axillary lymphadenopathy Results & Data Vital Signs (Past 12 Hours) Vital Signs Temp Pulse Pulse Resp BP Pulse Ox 11/08/18 07:45 36.6 C 74 20 121/73 89 L 11/08/18 03:52 36.8 C 72 19 136/70 92 11/07/18 23:33 36.9 C 61 19 97/61 L 92
[2018-11-08] MEDS ORDERED: ALBUMIN 25% 50 ML IV ONE (13:00)
[2018-11-08] MEDS: metOLazone 5 MG TABLET PO SCH (13:28)
[2018-11-08 14:45] LABS: Prothrombin Time 10.3 Seconds (9.0-12.0)
[2018-11-08 15:17] LABS: Albumin Level 3.3 gm/dl (3.4-5.0); Calcium 8.8 mg/dl (8.5-10.1); Creatinine Clr Calc Pharmacy 90.6 ml/min; Est GFR (African American) 62.7; Est GFR (Non-African American) 54.1; Potassium 3.8 mmol/L (3.5-5.1)
[2018-11-08 15:19] LABS: Albumin Globulin Ratio 0.8 (0.9-2); Bilirubin,Total 0.8 mg/dl (0.2-1); Globulin 4.1 gm/dl (2.5-4.0); Total Protein 7.4 gm/dl (6.4-8.2)
--- NOTE | 2018-11-08 15:26 | Urology Progress Note ---
Date of Service November 08, 2018 Assessment & Plan (1) Right renal mass: 58yo F POD #2 s/p robotic laparoscopic assisted partial nephrectomy by Dr. Carroll Pain better controlled today per patient report, but still requiring consistent pain control for relief. Labs improving. Pt feels overall fatigued, low energy. Tolerating mech soft diet okay, concerned about constipation. Currently working on golytely prep. Continue current lasix dosing. Continue pitts catheter for now. Consult PT for evaluation in AM. Will continue to monitor closely. Subjective 58yo F POD #2 s/p robotic laproscopic assisted partial nephrectomy by Dr. Ramya linares Pt continues to require supplemental O2 Requiring PRN morphine q3h with oxycodone for pain control. GI consulted for elevated LFTs, appreciate input. Abd u/s pending. Constipated, pt currently drinking golytely prep to encourage BM. Labs reviewed - leukocytosis resolved, Cr remains within normal limits. Review of Systems Review of Systems: All systems reviewed & are unremarkable except as noted in HPI & below Physical Exam Constitutional: + overweight; no acute distress and not ill appearing Eyes: no nystagmus ENMT: Ears: no hearing impairment Neck: trachea midline Respiratory: no respiratory distress and no cough Cardiovascular: Vessels: no JVD Chest (Breasts): Chest: normal inspection of chest Gastrointestinal (Abdomen): Inspection/Auscultation: abdomen not distended and no abdominal edema Percussion/Palpation: abdomen soft; abdomen nontender obese abdomen, nontender Musculoskeletal: Head/Neck/Chest: normocephalic and head atraumatic Skin: no rashes, warm and dry abdominal incisions C/D/I REINA draining moderate serosang Neurologic: awake; not confused and not obtunded Psychiatric: Orientation: alert and oriented x 3 Eye Contact: good eye contact Affect: no depressed affect Lymphatic: no lymphadenopathy and no lymphedema Results & Data Vital Signs (Past 12 Hours) Vital Signs Temp Pulse Pulse Resp BP Pulse Ox 11/08/18 11:45 36.8 C 71 22 104/55 L 92 11/08/18 07:45 36.6 C 74 20 121/73 89 L 11/08/18 03:52 36.8 C 72 19 136/70 92
--- NOTE | 2018-11-08 15:33 | Ultrasound Report ---
ABDOMINAL ULTRASOUND, RIGHT UPPER QUADRANT HISTORY: RUQ, transaminitis. Status post partial right nephrectomy. COMPARISON: CT of the abdomen and pelvis March 05, 2018. MRI of the abdomen March 30, 2018. FINDINGS: This exam is significantly compromised by suboptimal penetration. Hepatic echogenicity is i ncreased. There is no biliary ductal dilatation status post cholecystectomy. The pancreas is obscured . No right hydronephrosis is noted. A possible operative bed drain is noted. IMPRESSION: 1. Exam significantly compromised must by suboptimal penetration. Obscured pancreas. 2. No biliary ductal dilatation status post cholecystectomy. 3. Fatty infiltration of the liver. Electronically signed by: Lorenzo Em M.D. 11/08/2018 3:31 PM
[2018-11-08] MEDS: FAMOTIDINE 20 MG TAB PO SCH (20:15)
[2018-11-08] MEDS: cloNIDine HCl 0.1 MG TAB PO SCH (20:16)
[2018-11-08] MEDS: OXYCODONE HCL 15 MG TABCR (OXYCONTIN) PO SCH (20:16)
[2018-11-08 22:30] LABS: Albumin Globulin Ratio 0.8 (0.9-2); Albumin Level 3.1 gm/dl (3.4-5.0); BUN Creatinine Ratio 14.1 (10-20); Bilirubin,Total 0.8 mg/dl (0.2-1); Calcium 8.4 mg/dl (8.5-10.1); Creatinine Clr Calc Pharmacy 95.7 ml/min; Est GFR (Non-African American) 57.8; Globulin 3.7 gm/dl (2.5-4.0); Potassium 2.9 mmol/L (3.5-5.1); Total Protein 6.8 gm/dl (6.4-8.2)
[2018-11-08] MEDS ORDERED: POTASSIUM CHLORIDE 10 MEQ TABCR PO ONE (23:05)
[2018-11-08] MEDS: POTASSIUM CHLORIDE / WTR 10 MEQ/100 ML PLCT IV SCH (23:17)
[2018-11-09] MEDS: POTASSIUM CHLORIDE / WTR 10 MEQ/100 ML PLCT IV SCH (00:56)
[2018-11-09] MEDS: MoRPHine SULFATE 4 MG/ML 1 ML CARP\\VIAL IV PRN ×3 (01:35→13:52)
[2018-11-09] MEDS: ONDANSETRON INJ 2 MG/ML 2 ML VIAL IV PRN ×2 (04:04→17:25)
[2018-11-09] MEDS: LEVOTHYROXINE SODIUM 75 MCG TABLET PO SCH (05:31)
[2018-11-09 06:21] LABS: Basophils # (auto) 0.02 K/uL (0-0.2); Basophils % (auto) 0.2 %; Eosinophils # (auto) 0.07 K/uL (0-0.5); Eosinophils % (auto) 0.7 %; Hematocrit (blood only) 36.1 % (37-47); Hemoglobin 12.4 g/dL (12.0-16.0); Immature Granulocytes # (auto) 0.04 K/uL (0.00-0.02); Immature Granulocytes % (auto) 0.4 %; Lymphocytes # (auto) 2.07 K/uL (1.2-3.4); Mean Corpuscular Hgb Conc 34.3 g/dL (32-36); Mean Corpuscular Volume 94.8 fL (80-100); Monocytes # (auto) 0.67 K/uL (0.11-0.59); Monocytes % (auto) 7.1 %; Neutrophils # (auto) 6.55 K/uL (1.4-6.5); Neutrophils % (auto) 69.6 %; Platelet Count 161 K/uL (130-400); RDW Standard Deviation 48.1 fL (36.4-46.3); Red Blood Count 3.81 M/uL (4.2-5.4); White Blood Count 9.42 K/uL (4.8-10.8)
[2018-11-09 06:29] LABS: Prothrombin Time 10.5 Seconds (9.0-12.0)
[2018-11-09 06:55] LABS: BUN Creatinine Ratio 12.9 (10-20); Bilirubin Direct 0.2 mg/dl (0-0.2); Calcium 8.4 mg/dl (8.5-10.1); Creatinine Clr Calc Pharmacy 82.1 ml/min; Est GFR (African American) 64.1; Est GFR (Non-African American) 55.3; Potassium 2.8 mmol/L (3.5-5.1)
[2018-11-09 06:59] LABS: Albumin Globulin Ratio 0.8 (0.9-2); Bilirubin,Total 0.9 mg/dl (0.2-1); Globulin 3.8 gm/dl (2.5-4.0); Total Protein 6.8 gm/dl (6.4-8.2)
[2018-11-09] MEDS ORDERED: POTASSIUM CHLORIDE 20 MEQ TABCR PO STA ×2 (07:36→17:37)
[2018-11-09 08:02] LABS: Hepatitis B Surface Antigen Neg (Neg)
[2018-11-09] MEDS: ATORVASTATIN 20 MG TAB PO SCH (08:26)
[2018-11-09] MEDS: HEPARIN SOD 5,000 UNIT/0.5 ML VIAL SQ SCH ×2 (08:26→21:15)
[2018-11-09] MEDS: LORATADINE 10 MG TAB PO SCH (08:26)
[2018-11-09] MEDS: DOCUSATE SODIUM 100 MG CAP PO SCH ×2 (08:26→21:14)
[2018-11-09] MEDS: metOLazone 5 MG TABLET PO SCH (08:27)
[2018-11-09 08:30] LABS: Hepatitis C IgG 13Yrs+Old_Rflx Neg (Neg)
[2018-11-09] MEDS: OXYCODONE HCL 15 MG TABCR (OXYCONTIN) PO SCH ×2 (08:34→21:13)
[2018-11-09] MEDS ORDERED: POTASSIUM CHLORIDE 20 MEQ TABCR PO SCH (09:00)
--- NOTE | 2018-11-09 09:37 | Gastroenterology Progress Note ---
Date of Service November 09, 2018 Assessment & Plan (1) Elevated transaminase level: This appears to be an acute AST/ALT elevation, most likely related to the long period of anesthesia and surgery yesterday creating a period of mild liver ischemia. Possibly, the cefazolin and acetaminophen and non alcoholic fatty liver disease may have also contributed. Obstruction has been ruled out with normal US. 1. Maintain fluid/electrolyte balance, preventing dehydration and hypovolemia. 2. Continue to trend LFTs during admission and then weekly until resolution after discharge. 3. GI will watch peripherally. Supervising Physician Co-Signing Physician Notes I saw and evaluated patient. We are consulted for evaluation of elevated liver enzymes shortly after her recent urologic procedure. The history and labs are suggestive of ischemic hepatitis. The labs do seem to be improving and I would recommend continued monitoring over the next few days. Should there be any increase please contact our service otherwise we will sign off for the present time Subjective Ms. Estefania Hurtado is a 58 yr old obese female who underwent robotic lap assisted right partial nephrectomy on 11/07, a 6 hr procedure. GI consulted for elevated transaminases. Normal LFTs per PCP records in May. AST 672 early yesterday ->437 today; ALT 102 ->68, Bilirubin and Alk phos have remained normal. INR 1.0. Acetaminophen <2. US with fatty liver normal bile ducts, post choley. Pt awake, alert, no nausea/vomiting, eating well. Abdomen "feels better," was constipated, now moving her bowels after golytely. Review of Systems Review of Systems: ROS: Gen: Denies weakness, fevers, + purposeful weight loss in preporation for weight loss surgery. Eyes: No icterus, No eye redness, pain, and no recent vision changes Resp: No SOB, no cough Cardio: No palpitations/irregular beats, no chest pain GI: No abdominal pain, no nausea/vomiting : Denies pain on urination, no jaundice Skin: No jaundice, itching or new rashes Physical Exam Constitutional: WD/WN, vitals as above + morbidly obese Eyes: PERRL, conjunctivae normal, anicteric sclerae ENMT: external ear and nose normal, oropharynx normal Neck: trachea midline, no thyromegaly Respiratory: normal respiratory effort, lungs clear to auscultation Cardiovascular: RRR, no murmur, no edema Gastrointestinal (Abdomen): normal bowel sounds, soft, nontender, no hepatosplenomegaly Percussion/Palpation: abdomen nontender (difusely) Musculoskeletal: no cyanosis or clubbing, extremities motor strength 5/5 Skin: no rashes, warm and dry no jaundice Neurologic: PERRL, EOMI, accommodation nl, no face palsy, no dysarthria Psychiatric: A+Ox3, euthymic affect Lymphatic: no cervical or axillary lymphadenopathy Results & Data Vital Signs (Past 12 Hours) Vital Signs Temp Pulse Pulse Pulse Resp BP Pulse Ox 11/09/18 07:02 37.1 C 60 16 110/64 93 11/09/18 04:09 36.7 C 67 20 116/57 L 91 11/09/18 00:00 59 L 11/08/18 23:28 36.5 C 66 20 110/62 92 Laboratory Results See HPI for LFTs trending Diagnostic Findings US 11/08: 1. Exam significantly compromised must by suboptimal penetration. Obscured pancreas. 2. No biliary ductal dilatation status post cholecystectomy. 3. Fatty infiltration of the liver.
[2018-11-09] MEDS: FAMOTIDINE 20 MG TAB PO SCH ×2 (09:42→21:14)
--- NOTE | 2018-11-09 10:56 | Urology Progress Note ---
Date of Service November 09, 2018 Assessment & Plan (1) Right renal mass: POD #3 s/p partial nephrectomy. Appears to be improving. Awaiting PT evaluation. Remains on O2 via NC. Potential DC tomorrow with improvement in ambulation. Subjective 58 YO female POD #3 s/p partial nephrectomy. Reports feeling a little bit better this morning, OOB in chair upon exam. Successfully moved bowels overnight. Expected post-op pain at incisions continues. No nausea/vomiting. No fevers/chills. Review of Systems Review of Systems: Per HPI. Physical Exam Physical Exam: NAD. Resp: O2 via NC. Resp effort normal. Abd soft, +tenderness at incisions. Surgical glue intact, incisions well approximated. : bladder nontender, nondistended. Horowitz intact draining yellow urine. A&Ox3 appropriate affect. Results & Data Vital Signs (Past 12 Hours) Vital Signs Temp Pulse Pulse Pulse Resp BP Pulse Ox 11/09/18 07:02 37.1 C 60 16 110/64 93 11/09/18 04:09 36.7 C 67 20 116/57 L 91 11/09/18 00:00 59 L 11/08/18 23:28 36.5 C 66 20 110/62 92
[2018-11-09 10:57] LABS: Albumin Level 3.3 gm/dl (3.4-5.0); BUN Creatinine Ratio 15.5 (10-20); Calcium 8.8 mg/dl (8.5-10.1); Creatinine Clr Calc Pharmacy 88.6 ml/min; Est GFR (African American) 70.2; Est GFR (Non-African American) 60.6; Potassium 2.9 mmol/L (3.5-5.1)
[2018-11-09 11:00] LABS: Albumin Globulin Ratio 0.8 (0.9-2); Bilirubin,Total 1.1 mg/dl (0.2-1); Globulin 4.3 gm/dl (2.5-4.0); Total Protein 7.6 gm/dl (6.4-8.2)
--- NOTE | 2018-11-09 14:55 | Hospitalist Progress Note ---
Date of Service November 09, 2018 Assessment & Plan (1) Right renal mass: Status post right robotic laparoscopic assisted partial nephrectomy by Dr. Rene Carroll POD 3. Improving slowly. Has multiple comorbidities. Avoid nephrotoxic agents (2) Hypertension: Continue clonidine 0.2 mg p.o. at bedtime. Hold lisinopril for potential fluid fluctuation postoperatively. (3) CHF (congestive heart failure): Continue Lasix drip and decreased rate from 3 to 1 mg/h. Patient had brisk output net value of 5628 mils. Noted hypokalemia of 2.8 replenished with potassium p.o. 80 mEq. Continue potassium p.o. 40 mEq twice daily for 3 days. Strict in and out Daily weight Fluid [id number] Low-sodium diet CMP every 6 hours Physical therapy as per patient request Walker placed order (4) Hyperlipidemia: Continue atorvastatin 20 mg every morning (5) Peripheral neuropathy: Continue gabapentin 300 mg p.o. 3 times daily (6) Anxiety: Continue buspirone 5 mg p.o. 3 times daily (7) Hypothyroidism (acquired): Continue levothyroxine sodium 75 mcg every morning (8) Asthma: Continue Advair Diskus twice daily and albuterol HFA 2 puffs every 6 hours as needed. (9) Obstructive sleep apnea on CPAP: Patient is using home CPAP, and was noted to be tolerating it well the evening of admission. Chest x-ray performed post surgery, as reviewed by me, was unchanged from preop films. (10) Allergic rhinitis: Continue loratadine 10 mg in the morning (11) Elevated transaminase level: Appears to be multifactorial. Elevated liver enzymes so to AST 672--> 61 and ALT-->79, is no other labs available for comparison. Ultrasound of the liver: 1. Exam significantly compromised must by suboptimal penetration. Obscured pancreas. 2. No biliary ductal dilatation status post cholecystectomy. 3. Fatty infiltration of the liver. Toxicology shows that Tylenol level is less than 2 which is encouraging , but the anyway stopped all products that could contain Tylenol such as Percocet and Tylenol itself. Gastroenterology follows. Subjective Patient seen and examined at the bedside. Slowly improving. Patient had large bowel movement last night. Sitting up in the chair her net output for 24 hours is 5628 mils on Lasix drip. We will slowly Lasix drip from 3 to 1 mg and transition to p.o. Lasix. Patient is afebrile overnight. Appetite is slowly improving. She complains of pain in her left hip which was old due to de generative joint disease as she had these issues before. She is postop day 3 status post robotic right partial nephrectomy. Incisions looks clean dry and intact. Healing appropriately. Patient denies fever chills, chest pain, shortness of breath, abdominal pain except for expected pain of incisions, nausea vomiting, guarding, melena hematochezia. Review of Systems Review of Systems: All systems reviewed & are unremarkable except as noted in HPI & below Physical Exam Constitutional: WD/WN, vitals as above + morbidly obese Eyes: PERRL, conjunctivae normal, anicteric sclerae ENMT: external ear and nose normal, oropharynx normal Neck: trachea midline, no thyromegaly Respiratory: normal respiratory effort, lungs clear to auscultation Cardiovascular: Rate/Rhythm: regular rate Heart Sounds: normal S1 and normal S2 Musculoskeletal: no cyanosis or clubbing, extremities motor strength 5/5 Skin: no rashes, warm and dry Results & Data Vital Signs (Past 12 Hours) Vital Signs Temp Pulse Pulse Resp BP Pulse Ox 11/09/18 11:16 36.6 C 97 H 22 109/51 L 97 11/09/18 07:02 37.1 C 60 16 110/64 93 11/09/18 04:09 36.7 C 67 20 116/57 L 91 PG Care Time/CCT Total # of Minutes Spent Total Time Spent with Patient: Total time spent is greater than 50% in coordination of care (as documented) at patient's floor/unit and/or counseling patient:
[2018-11-09 16:13] LABS: BUN Creatinine Ratio 14.9 (10-20); Calcium 8.7 mg/dl (8.5-10.1); Creatinine Clr Calc Pharmacy 82.9 ml/min; Est GFR (African American) 64.8; Est GFR (Non-African American) 55.9
[2018-11-09 16:16] LABS: Albumin Globulin Ratio 0.7 (0.9-2); Bilirubin,Total 0.9 mg/dl (0.2-1); Globulin 4.1 gm/dl (2.5-4.0); Total Protein 7.1 gm/dl (6.4-8.2)
[2018-11-09] MEDS ORDERED: Nursing to Pharmacy Communication ONE (17:44)
[2018-11-09] MEDS: FUROSEMIDE 100 MG in DEXTROSE 5% 90 ML IV SCH (18:07)
[2018-11-09] MEDS: OXYCODONE HCL IR 5 MG TAB (IMMEDIATE RELEASE) PO PRN (18:08)
[2018-11-09] MEDS: cloNIDine HCl 0.1 MG TAB PO SCH (21:13)
[2018-11-10] MEDS: OXYCODONE HCL IR 5 MG TAB (IMMEDIATE RELEASE) PO PRN ×3 (04:44→19:37)
[2018-11-10] MEDS: LEVOTHYROXINE SODIUM 75 MCG TABLET PO SCH (05:00)
[2018-11-10 06:03] LABS: Basophils # (auto) 0.02 K/uL (0-0.2); Basophils % (auto) 0.2 %; Eosinophils # (auto) 0.12 K/uL (0-0.5); Eosinophils % (auto) 1.3 %; Hematocrit (blood only) 37.4 % (37-47); Hemoglobin 12.2 g/dL (12.0-16.0); Immature Granulocytes # (auto) 0.02 K/uL (0.00-0.02); Immature Granulocytes % (auto) 0.2 %; Lymphocytes # (auto) 1.93 K/uL (1.2-3.4); Lymphocytes % (auto) 20.4 %; Mean Corpuscular Hgb Conc 32.6 g/dL (32-36); Mean Corpuscular Volume 95.2 fL (80-100); Monocytes # (auto) 0.67 K/uL (0.11-0.59); Monocytes % (auto) 7.1 %; Neutrophils % (auto) 70.8 %; Platelet Count 174 K/uL (130-400); RDW Coefficient of Variation 13.8 % (11.5-14.5); RDW Standard Deviation 48.2 fL (36.4-46.3); Red Blood Count 3.93 M/uL (4.2-5.4); White Blood Count 9.46 K/uL (4.8-10.8)
[2018-11-10 06:29] LABS: BUN Creatinine Ratio 15.4 (10-20); Calcium 9.1 mg/dl (8.5-10.1); Creatinine Clr Calc Pharmacy 103.5 ml/min; Est GFR (African American) 73.7; Est GFR (Non-African American) 63.6; Potassium 2.7 mmol/L (3.5-5.1)
[2018-11-10] MEDS ORDERED: POTASSIUM CHLORIDE 20 MEQ TABCR PO ONE (07:35)
[2018-11-10] MEDS: ATORVASTATIN 20 MG TAB PO SCH (07:55)
[2018-11-10] MEDS: DOCUSATE SODIUM 100 MG CAP PO SCH ×2 (07:55→21:32)
[2018-11-10] MEDS: metOLazone 5 MG TABLET PO SCH (07:55)
[2018-11-10] MEDS: LORATADINE 10 MG TAB PO SCH (07:55)
[2018-11-10] MEDS: FAMOTIDINE 20 MG TAB PO SCH ×2 (07:56→21:25)
[2018-11-10] MEDS: HEPARIN SOD 5,000 UNIT/0.5 ML VIAL SQ SCH ×2 (07:56→21:23)
[2018-11-10] MEDS: POTASSIUM CHLORIDE 20 MEQ TABCR PO SCH ×2 (07:56→21:25)
[2018-11-10] MEDS: OXYCODONE HCL 15 MG TABCR (OXYCONTIN) PO SCH ×2 (08:34→21:23)
[2018-11-10] MEDS: FUROSEMIDE 100 MG in DEXTROSE 5% 90 ML IV SCH (13:58)
--- NOTE | 2018-11-10 13:58 | Hospitalist Progress Note ---
Date of Service November 10, 2018 Assessment & Plan (1) Right renal mass: Status post right robotic laparoscopic assisted partial nephrectomy by Dr. Rene Carroll POD 3. Improving slowly. Has multiple comorbidities. Avoid nephrotoxic agents (2) Hypertension: Continue clonidine 0.2 mg p.o. at bedtime. Hold lisinopril for potential fluid fluctuation postoperatively. (3) CHF (congestive heart failure): Stop Lasix drip since pt is back to her usaual state and switch to Lasix PO 40 mg TID. Monitor potassium and replanish as needed. Pain controlled well. Strict in and out Daily weight Fluid [id number] Low-sodium diet CMP daily Physical therapy as per patient request Walker placed order (4) Hyperlipidemia: Continue atorvastatin 20 mg every morning (5) Peripheral neuropathy: Continue gabapentin 300 mg p.o. 3 times daily (6) Anxiety: Continue buspirone 5 mg p.o. 3 times daily (7) Hypothyroidism (acquired): Continue levothyroxine sodium 75 mcg every morning (8) Asthma: Continue Advair Diskus twice daily and albuterol HFA 2 puffs every 6 hours as needed. (9) Obstructive sleep apnea on CPAP: Patient is using home CPAP, and was noted to be tolerating it well the evening of admission. Chest x-ray performed post surgery, as reviewed by me, was unchanged from preop films. (10) Allergic rhinitis: Continue loratadine 10 mg in the morning (11) Elevated transaminase level: Appears to be multifactorial. Elevated liver enzymes so to AST 672--> 61 and ALT-->79, is no other labs available for comparison. Ultrasound of the liver: 1. Exam significantly compromised must by suboptimal penetration. Obscured pancreas. 2. No biliary ductal dilatation status post cholecystectomy. 3. Fatty infiltration of the liver. Toxicology shows that Tylenol level is less than 2 which is encouraging , but the anyway stopped all products that could contain Tylenol such as Percocet and Tylenol itself. Gastroenterology follows. Subjective Patient seen and examined at the bedside. Slowly improving. Patient had large bowel movement last night. Sitting up in the chair her net output for 48 hours is total >8000 mils on Lasix drip.Will stop Lasix drip today and restart her regular dose of Lasix 40 TID PO. Patient is afebrile overnight. She is postop day 4 status post robotic right partial nephrectomy. Incisions looks clean dry and intact. Healing appropriately. Patient denies fever chills, chest pain, shortness of breath, abdominal pain except for expected pain of incisions, nausea vomiting, guarding, melena hematochezia.Pain managed well. Review of Systems Review of Systems: All systems reviewed & are unremarkable except as noted in HPI & below Physical Exam Constitutional: WD/WN, vitals as above + morbidly obese Eyes: PERRL, conjunctivae normal, anicteric sclerae ENMT: external ear and nose normal, oropharynx normal Neck: trachea midline, no thyromegaly Respiratory: normal respiratory effort, lungs clear to auscultation Cardiovascular: Rate/Rhythm: regular rate Heart Sounds: normal S1 and normal S2 Musculoskeletal: no cyanosis or clubbing, extremities motor strength 5/5 Skin: no rashes, warm and dry Results & Data Vital Signs (Past 12 Hours) Vital Signs Temp Pulse Resp BP Pulse Ox 11/10/18 12:11 36.6 C 73 19 106/59 L 94 11/10/18 08:05 36.7 C 70 16 128/68 91 11/10/18 03:24 36.5 C 54 L 14 102/58 L 94 PG Care Time/CCT Total # of Minutes Spent Total Time Spent with Patient: Total time spent is greater than 50% in coordination of care (as documented) at patient's floor/unit and/or counseling patient:
--- NOTE | 2018-11-10 14:05 | Urology Progress Note ---
Date of Service November 10, 2018 Assessment & Plan (1) Right renal mass: POD #4 s/p partial nephrectomy. Appears to be improving. Increased activity. Tolerating diet. No major other changes. Pathology briefly reviewed. RCC T1a Grade 2 Negative margins. Remove pitts today. REINA likely tomorrow. Home tomorrow likely. Subjective POD 4 Improving activity. Bowel function returned. Tolerating diet. Improved urine output Increased LFT having working. Had previously had liver lesions deemed likely benign. No other major chagnes or issues. . Patient denies fever chills, chest pain, shortness of breath, abdominal pain except for expected pain of incisions, nausea vomiting, guarding, melena hematochezia.Pain managed well. Review of Systems Review of Systems: All systems reviewed & are unremarkable except as noted in HPI & below Physical Exam Constitutional: + overweight; no acute distress and not ill appearing Eyes: no nystagmus ENMT: Ears: no hearing impairment Neck: trachea midline Respiratory: no respiratory distress and no cough Cardiovascular: Vessels: no JVD Chest (Breasts): Chest: normal inspection of chest Gastrointestinal (Abdomen): Inspection/Auscultation: abdomen not distended and no abdominal edema Percussion/Palpation: abdomen soft; abdomen nontender Musculoskeletal: Head/Neck/Chest: normocephalic and head atraumatic Skin: no rashes, warm and dry Neurologic: awake; not confused and not obtunded Psychiatric: Orientation: alert and oriented x 3 Eye Contact: good eye contact Affect: no depressed affect Lymphatic: no lymphadenopathy and no lymphedema Results & Data Vital Signs (Past 12 Hours) Vital Signs Temp Pulse Resp BP Pulse Ox 11/10/18 12:11 36.6 C 73 19 106/59 L 94 11/10/18 08:05 36.7 C 70 16 128/68 91 11/10/18 03:24 36.5 C 54 L 14 102/58 L 94 PG Care Time/CCT Total # of Minutes Spent Total Time Spent with Patient: Total time spent is greater than 50% in coordination of care (as documented) at patient's floor/unit and/or counseling patient:
[2018-11-10] MEDS: FUROSEMIDE 40 MG TAB PO SCH ×2 (14:20→21:51)
[2018-11-10] MEDS: cloNIDine HCl 0.1 MG TAB PO SCH (21:23)
[2018-11-11 05:57] LABS: Basophils # (auto) 0.02 K/uL (0-0.2); Basophils % (auto) 0.2 %; Eosinophils % (auto) 1.9 %; Hematocrit (blood only) 36.9 % (37-47); Hemoglobin 12.6 g/dL (12.0-16.0); Immature Granulocytes # (auto) 0.03 K/uL (0.00-0.02); Immature Granulocytes % (auto) 0.3 %; Lymphocytes % (auto) 21.3 %; Mean Corpuscular Hgb Conc 34.1 g/dL (32-36); Mean Corpuscular Volume 93.7 fL (80-100); Mean Platelet Volume 9.6 fL (7.4-10.4); Monocytes # (auto) 0.92 K/uL (0.11-0.59); Monocytes % (auto) 8.9 %; Neutrophils # (auto) 6.96 K/uL (1.4-6.5); Neutrophils % (auto) 67.4 %; Platelet Count 186 K/uL (130-400); RDW Coefficient of Variation 13.7 % (11.5-14.5); RDW Standard Deviation 47.1 fL (36.4-46.3); Red Blood Count 3.94 M/uL (4.2-5.4); White Blood Count 10.33 K/uL (4.8-10.8)
[2018-11-11] MEDS: LEVOTHYROXINE SODIUM 75 MCG TABLET PO SCH (06:04)
[2018-11-11] MEDS: OXYCODONE HCL IR 5 MG TAB (IMMEDIATE RELEASE) PO PRN ×2 (06:07→14:21)
[2018-11-11 06:43] LABS: BUN Creatinine Ratio 14.7 (10-20); Calcium 9.3 mg/dl (8.5-10.1); Creatinine Clr Calc Pharmacy 94.5 ml/min; Est GFR (African American) 66.3; Est GFR (Non-African American) 57.2; Potassium 2.5 mmol/L (3.5-5.1)
[2018-11-11] MEDS ORDERED: POTASSIUM CHLORIDE 20 MEQ TABCR PO STA ×4 (06:53→15:01)
[2018-11-11] MEDS: ATORVASTATIN 20 MG TAB PO SCH (07:45)
[2018-11-11] MEDS: metOLazone 5 MG TABLET PO SCH (07:46)
[2018-11-11] MEDS: FAMOTIDINE 20 MG TAB PO SCH (07:46)
[2018-11-11] MEDS: LORATADINE 10 MG TAB PO SCH (07:46)
[2018-11-11] MEDS: POTASSIUM CHLORIDE 20 MEQ TABCR PO SCH ×3 (07:46→11:21)
[2018-11-11] MEDS: DOCUSATE SODIUM 100 MG CAP PO SCH (07:46)
[2018-11-11] MEDS: HEPARIN SOD 5,000 UNIT/0.5 ML VIAL SQ SCH (07:48)
[2018-11-11] MEDS: FUROSEMIDE 40 MG TAB PO SCH ×2 (09:17→14:36)
[2018-11-11] MEDS: OXYCODONE HCL 15 MG TABCR (OXYCONTIN) PO SCH (09:18)
--- NOTE | 2018-11-11 09:34 | Urology Progress Note ---
Date of Service November 11, 2018 Assessment & Plan (1) Right renal mass: POD #5 s/p right partial nephrectomy. Contines to improve. Tolerated pitts removal Increased activity. Tolerating diet. No major other changes. RCC T1a Grade 2 Negative margins. Has assistance and home health set up. Subjective POD 5 Continued Improvement of activity. Bowel function returned. Tolerating diet. Improved urine output> Tolerated pitts removal Minimal REINA output. Increased LFT having working. Had previously had liver lesions deemed likely benign. No other major chagnes or issues. Patient denies fever chills, chest pain, shortness of breath, abdominal pain except for expected pain of incisions, nausea vomiting, guarding, melena hematochezia.Pain managed well. Review of Systems Review of Systems: All systems reviewed & are unremarkable except as noted in HPI & below Per HPI. Physical Exam Constitutional: + overweight; no acute distress and not ill appearing Eyes: no nystagmus ENMT: Ears: no hearing impairment Neck: trachea midline Respiratory: no respiratory distress and no cough Cardiovascular: Vessels: no JVD Chest (Breasts): Chest: normal inspection of chest Gastrointestinal (Abdomen): Inspection/Auscultation: abdomen not distended and no abdominal edema Percussion/Palpation: abdomen soft; abdomen nontender Musculoskeletal: Head/Neck/Chest: normocephalic and head atraumatic Skin: no rashes, warm and dry Neurologic: awake; not confused and not obtunded Psychiatric: Orientation: alert and oriented x 3 Eye Contact: good eye contact Affect: no depressed affect Lymphatic: no lymphadenopathy and no lymphedema Results & Data Vital Signs (Past 12 Hours) Vital Signs Temp Pulse Pulse Resp BP Pulse Ox 11/11/18 07:18 36.8 C 58 L 20 134/68 88 L 11/11/18 03:56 36.4 C L 57 L 19 122/69 96 11/11/18 00:00 53 L 11/10/18 23:40 36.3 C L 54 L 17 116/63 95 PG Care Time/CCT Total # of Minutes Spent Total Time Spent with Patient: Total time spent is greater than 50% in coordination of care (as documented) at patient's floor/unit and/or counseling patient:
[2018-11-11] MEDS ORDERED: POTASSIUM CHLORIDE 20 MEQ TABCR PO ONE (11:00)
[2018-11-11 14:54] LABS: Albumin Globulin Ratio 0.7 (0.9-2); BUN Creatinine Ratio 12.3 (10-20); Bilirubin,Total 1.2 mg/dl (0.2-1); Calcium 9.4 mg/dl (8.5-10.1); Creatinine Clr Calc Pharmacy 72.7 ml/min; Est GFR (African American) 48.3; Est GFR (Non-African American) 41.7; Globulin 4.3 gm/dl (2.5-4.0); Total Protein 7.3 gm/dl (6.4-8.2)
--- NOTE | 2018-11-11 15:13 | Hospitalist Progress Note ---
Date of Service November 11, 2018 Assessment & Plan (1) Right renal mass: Status post right robotic laparoscopic assisted partial nephrectomy by Dr. Rene Carroll POD 4. Improving slowly. Has multiple comorbidities. Avoid nephrotoxic agents (2) Hypertension: Continue clonidine 0.2 mg p.o. at bedtime. Hold lisinopril for potential fluid fluctuation postoperatively. (3) CHF (congestive heart failure): Continue Lasix PO as per primary team. Follow-up CBC CMP liver function test in 3 days with PCP or urology. Patient is discharged today by primary team urology. Avoid nephrotoxic agents. Replenish potassium p.o. Now potassium is 3. Pain controlled well. Strict in and out Daily weight Fluid [id number] Low-sodium diet CMP daily Physical therapy as per patient request Walker placed order Present on Admission?: Yes (4) Hyperlipidemia: Continue atorvastatin 20 mg every morning (5) Peripheral neuropathy: Continue gabapentin 300 mg p.o. 3 times daily (6) Anxiety: Continue buspirone 5 mg p.o. 3 times daily (7) Hypothyroidism (acquired): Continue levothyroxine sodium 75 mcg every morning (8) Asthma: Continue Advair Diskus twice daily and albuterol HFA 2 puffs every 6 hours as needed. (9) Obstructive sleep apnea on CPAP: Patient is using home CPAP, and was noted to be tolerating it well the evening of admission. Chest x-ray performed post surgery, as reviewed by me, was unchanged from preop films. (10) Allergic rhinitis: Continue loratadine 10 mg in the morning (11) Elevated transaminase level: Appears to be multifactorial. Elevated liver enzymes so to AST 672--> 61 and ALT-->79, is no other labs available for comparison. Ultrasound of the liver: 1. Exam significantly compromised must by suboptimal penetration. Obscured pancreas. 2. No biliary ductal dilatation status post cholecystectomy. 3. Fatty infiltration of the liver. Toxicology shows that Tylenol level is less than 2 which is encouraging , but the anyway stopped all products that could contain Tylenol such as Percocet and Tylenol itself. Gastroenterology follows. Subjective Patient seen and examined at the bedside. Discharge by primary team. Status post right partial nephrectomy POD 4. Follow-up CBC and CMP particularly creatinine which is little bit elevated today to 1.39 and potassium 3 and liver function test 208 with PCP and neurology. Continued Improvement of activity. Bowel function returned. Tolerating diet. Improved urine output.Horowitz removed and no issues. Patient denies fever chills, chest pain, shortness of breath, abdominal pain except for expected pain of incisions, nausea vomiting, guarding, melena hematochezia.Pain managed well. Review of Systems Review of Systems: All systems reviewed & are unremarkable except as noted in HPI & below Physical Exam Constitutional: WD/WN, vitals as above + morbidly obese Eyes: PERRL, conjunctivae normal, anicteric sclerae ENMT: external ear and nose normal, oropharynx normal Neck: trachea midline, no thyromegaly Respiratory: normal respiratory effort, lungs clear to auscultation Cardiovascular: RRR, no murmur, no edema Rate/Rhythm: regular rate Musculoskeletal: no cyanosis or clubbing, extremities motor strength 5/5 Skin: no rashes, warm and dry Results & Data Vital Signs (Past 12 Hours) Vital Signs Temp Pulse Pulse Pulse Resp BP BP 11/11/18 14:26 37.2 C 74 63 70 20 90/59 L 140/69 11/11/18 11:48 37.2 C 70 20 90/59 L 11/11/18 07:18 36.8 C 58 L 20 134/68 11/11/18 03:56 36.4 C L 57 L 19 122/69 Pulse Ox 11/11/18 14:26 92 11/11/18 11:48 92 11/11/18 07:18 88 L 11/11/18 03:56 96 PG Care Time/CCT Total # of Minutes Spent Total Time Spent with Patient: Total time spent is greater than 50% in coordination of care (as documented) at patient's floor/unit and/or counseling patient:
[2018-11-12 15:50] LABS: Anti Nuclear Antibody Screen NEGATIVE (NEGATIVE); Hepatitis A Antibody Total REACTIVE (NON-REACTIVE)
--- NOTE | 2018-11-14 17:36 | Discharge Summary ---
Date of Service November 14, 2018 Admission HPI Per Admitting Provider See admission HPI Admission Exam Per Admitting Provider See H&P Principal Diagnosis Renal Mass Right Discharge Exam Constitutional + overweight; no acute distress and not ill appearing Eyes no nystagmus ENMT Ears: no hearing impairment Neck trachea midline Respiratory no respiratory distress and no cough Cardiovascular Vessels: no JVD Chest (Breasts) Chest: normal inspection of chest Gastrointestinal (Abdomen) Inspection/Auscultation: abdomen not distended and no abdominal edema Percussion/Palpation: abdomen soft; abdomen nontender Musculoskeletal Head/Neck/Chest: normocephalic and head atraumatic Skin no rashes, warm and dry Neurologic awake; not confused and not obtunded Psychiatric Orientation: alert and oriented x 3 Eye Contact: good eye contact Affect: no depressed affect Lymphatic no lymphadenopathy and no lymphedema Discharge Data Allergies Allergy/AdvReac Type Severity Reaction Status Date / Time acetaminophen [From Percocet] AdvReac Vomiting Verified 11/06/18 09:47 oxycodone [From Percocet] AdvReac Vomiting Verified 11/06/18 09:47 Consultations 11/06/18 19:42 Consult Hospitalist Routine 11/08/18 10:47 Consult Gastroenterology Routine 11/09/18 11:40 Consult Case Management - Discharge Planning Routine Procedures Performed Operation Date: 11/06/18 11:10 Actual Procedures p Right Robotic Laparoscopic Assisted Partial Nephrectomy(Right) - Rene Carroll II, DO Ordered Studies 11/08/18 10:46 abdomen limited Stat Hospital Course (1) Right renal mass: POD #5 s/p right partial nephrectomy. Contines to improve. Tolerated pitts removal Increased activity. Tolerating diet. No major other changes. RCC T1a Grade 2 Negative margins. Has assistance and home health set up. Total Time Total Time Spent Total Time Spent (In Minutes): 15 Total Time Includes: Examination of the Patient, Discharge Planning, Medication Reconciliation, Communication With Other Providers and Other Discharge Plan Discharge Items Patient Disposition: Home - Home Health Services Reason For Visit: Right Renal Mass Discharge Diagnosis: Same Discharge Goals: Decrease discomfort Activity: Resume your previous activity Lifting: No more than 25 pounds and No more than 50 pounds Bathing Comment: Okay to shower. No hot tubs, baths, or soaking Non-emergency contact: Urologist Call non-emergency contact if: you have any medication questions, your symptoms worsen, your pain is not controlled, your pain is worsening, your pain is unusual for you, your pain is concerning for you, you have a fever, your temperature is above 101.5, your wound has increased redness, your wound has increased drainage and your wound pain has increased Follow-up/Referrals: Eben Cortes D.O. [Primary Care Provider] - Diet: Regular and Full liquid Addtl Provider Instructions: Please take all medications as prescribed and keep all follow-ups as scheduled. Please call our office at [phone] with any questions, concerns or need to reschedule appointments for any reason. We are happy to assist you. Recovering at home: We recommend having someone with you for the first few days after surgery to help care for you. It is okay to shower tomorrow. Please avoid swimming, bathing or using hot tub until incisions are well healed. Avoid driving until you are not requiring pain medication any further. Walk at least a few times a day. Increase your distance, as you feel able. Stairs in your home are okay. Please avoid strenuous or sexual activity until your follow-up. We recommend using stool softener (i.e. Colace) to prevent constipation and straining, especially the first two weeks post operatively. Call [facility] Urology at [phone] if you experience: Chest pain or trouble breathing (call 611 or go to the hospital). Fever of 101F or higher Symptoms of infection at incision site, including redness or swelling, warmth, or bad-smelling drainage If you have catheter, and you notice: o Bloody urine or drainage that is dark red or has large clots (Please remember a small amount of blood is normal) o No drainage from the catheter for more than 6 hours o The catheter comes out of your bladder Pain that is not controlled with medicines Prescriptions: New oxycodone 5 mg tablet 5 mg PO BID PRN (Reason: pain) Qty: 14 RF: 0 docusate sodium [Colace] 100 mg capsule 100 mg PO BID PRN (Reason: constipation) Qty: 60 RF: 2 Continued furosemide [Lasix] 40 mg Tablet 40 mg PO TID RF: 0 buspirone 5 mg Tablet 5 mg PO TID RF: 0 fluticasone propion-salmeterol [Advair Diskus] 250-50 mcg/dose Blister With Device 1 inh INHALATION BID PRN (Reason: sob) RF: 0 atorvastatin 20 mg Tablet 20 mg PO QAM RF: 0 meloxicam 15 mg Tablet 15 mg PO QAM RF: 0 potassium chloride 10 mEq Tablet Extended Release 10 meq PO TID RF: 0 hydrocodone-acetaminophen [[place]] 10-325 mg Tablet 1 tab PO Q6H PRN (Reason: Pain) RF: 0 acetaminophen 500 mg Tablet 1,000 mg PO Q6H PRN (Reason: Pain) RF: 0 lisinopril 10 mg Tablet 10 mg PO QAM RF: 0 gabapentin 300 mg Capsule 300 mg PO TID RF: 0 albuterol sulfate 90 mcg/actuation Hfa Aerosol Inhaler 2 puff INHALATION Q6H PRN (Reason: sob) RF: 0 loratadine 10 mg Tablet 10 mg PO QAM RF: 0 clonidine HCl 0.2 mg Tablet 0.2 mg PO HS RF: 0 levothyroxine [Synthroid] 75 mcg Tablet 75 mcg PO QAM RF: 0 Stand-Alone Forms: [facility] Discharge Orders: Discharge Order (Routine); Ordered 11/11/18 Ordered By: Rene Carroll II Admission Data Admit Date/Time: 11/06/18 18:52 Attending Provider: Rene Carroll II Admit Provider: Rene Carroll II Primary Care Provider: Eben Cortes Other Providers: Brant Jones ; Jeny Fagan ; Silvia Lopez ; Fco Petersen ; Brad Gill ; Stephany Brar ; Ede Segura ; Db Jones ; Hernandez Mera ; Antonietta Bhatti ; Temitope Salas ; Rox De La Cruz ; Allan Souza ; Mechelle Thakur ; Jose Medina ; Lamin Mei ; Jeny Godwin ; Virgie Rahman ; Keerthi Minor ; Romaine Donovan ; Ady Odom ; Shannon Nicole ; George Cobos ; Bharath العراقي ; Caitlyn,Christiano L Service: Telemetry Other Interventions: Discharge Summary Assessment (RN) Last Done: 11/11/18 14:26 DC Date/Time DO NOT enter until pt leaves facility: 11/11/18 15:18
--- NOTE | 2018-11-15 07:32 | Coding Query ---
PATHOLOGY To promote full compliance with coding requirements relating to patient care, physician participation is requested in all cases of intensive care anaesthetist uncertainty. Please assist us with the question(s) below: Please review the Pathology report and please document any relevant diagnosis(es) below. Thank you ! SUZIE Arthur [facility] Diagnosis(es): Renal Mass identified as Renal Cell Carcinoma T1a with negative margins from Partial Right Nephrectomy MTDD
--- NOTE | 2018-11-19 06:17 | Coding Query ---
CODING QUERY To promote full compliance with coding requirements relating to patient care, provider participation is requested in all cases of operations systems specialist uncertainty. Please assist us with the question(s) below: Coding Question(s): 58 Year old admitted for partial nephrectomy. History right heart failure and chronic diastolic hearf failure. 11/08 progress note states " appeared to be volume overloaded with 5000 cc output in previous 24 hours". Lasix given gtt, fluid restrictions, weight monitoring. Please document, if known or suspected, the condition that was treated. Thank you. Jefferson Gallardo [facility] Physician's Response(s): Hypervolemia Principal Diagnosis: "that condition established after study, to be chiefly responsible for occasioning the admission of the patient to the hospital for care." Co-Existing Principal Diagnosis: "when two or more diagnoses equally meet the criteria for principal diagnosis as determined by the circumstances of admission, diagnostic work up, and/or therapy provided, and the Alphabetic Index, Tabular List, or another coding guideline does not provide sequencing direction, any one of the diagnoses may be sequenced first." "When the physician has documented what appears to be a current diagnosis in the body of the record, but has not included the diagnosis in the final diagnostic statement, the physician should be asked whether the diagnosis should be added." (Source Coding [facility] 2 QTR90. p3-4) URBAN
== END 2018-11-11 15:18 | disposition home health service (06) | DRG 656 ==
LOC: ASU 09:13 → 2E 18:52

== ENCOUNTER 2018-11-17 15:16 | Inpatient (IN) ==
[2018-11-17] MEDS ORDERED: POLYETHYLENE (MIRALAX) 17 GM PACK PO PRN (20:03)
[2018-11-17] MEDS ORDERED: FLUTICASONE/SALMETEROL 250/50 (ADVAIR) 14 PUFF/1 INHALER INH PRN (20:03)
[2018-11-17] MEDS ORDERED: ALBUTEROL HFA 8 GM INHALER INH PRN (20:03)
[2018-11-17] MEDS ORDERED: CEFTRIAXONE SODIUM IV SCH (20:15)
[2018-11-17] MEDS ORDERED: DEXTROSE 5% IV SCH (20:15)
[2018-11-17] MEDS ORDERED: OXYCODONE HCL IR 5 MG TAB (IMMEDIATE RELEASE) PO PRN (20:21)
[2018-11-17 20:34] LABS: Basophils # (auto) 0.03 K/uL (0-0.2); Basophils % (auto) 0.1 %; Eosinophils # (auto) 0.28 K/uL (0-0.5); Eosinophils % (auto) 1.2 %; Hematocrit (blood only) 34.1 % (37-47); Hemoglobin 11.2 g/dL (12.0-16.0); Immature Granulocytes % (auto) 0.4 %; Lymphocytes % (auto) 8.6 %; Mean Corpuscular Volume 96.1 fL (80-100); Mean Platelet Volume 9.3 fL (7.4-10.4); Monocytes # (auto) 1.28 K/uL (0.11-0.59); Monocytes % (auto) 5.5 %; Neutrophils # (auto) 19.47 K/uL (1.4-6.5); Neutrophils % (auto) 84.2 %; Platelet Count 269 K/uL (130-400); RDW Coefficient of Variation 14.5 % (11.5-14.5); RDW Standard Deviation 50.7 fL (36.4-46.3); Red Blood Count 3.55 M/uL (4.2-5.4); White Blood Count 23.16 K/uL (4.8-10.8)
[2018-11-17 20:37] LABS: Base Excess ABG -0.1 mEq/L (-9-1.8); HCO3 ABG 25 mmol/L (19-24); Oxygen Saturation ABG 91.1 % (90-95); PCO2 ABG 42 mmHg (35-46); PO2 ABG 72 mm/Hg (80-95)
[2018-11-17 20:38] LABS: Mean Corpuscular Hgb Conc 32.8 g/dL (32-36)
[2018-11-17 20:39] LABS: Allen Test Pos (Pos)
--- NOTE | 2018-11-17 20:39 | XRay Report ---
XR chest 1V portable CLINICAL HISTORY: 58 years-old Female presenting with sob, CHF. TECHNIQUE: Portable upright AP view of the chest was obtained. COMPARISON: 11/06/2018. FINDINGS: Cardiac silhouette moderately enlarged although some degree of mediastinal lipomatosis may account fo r the appearance of the mediastinum. Mild pulmonary vascular prominence. Linear opacities with a cent ral and basilar predominance, left greater than right. No large effusion or pneumothorax. Cervical fu tsering hardware. IMPRESSION: 1. Evaluation limited by patient body habitus and portable technique. This moderately limits diagnos tic sensitivity the exam. 2. Cardiomegaly with mild volume overload. 3. Suspected central and basilar atelectasis greater on the left. Electronically signed by: Sorin Muir M.D. 11/17/2018 8:37 PM
[2018-11-17 20:50] LABS: Albumin Level 2.7 gm/dl (3.4-5.0); BUN Creatinine Ratio 20.5 (10-20); Calcium 8.3 mg/dl (8.5-10.1); Creatinine Clr Calc Pharmacy 78.4 ml/min; Est GFR (African American) 51.9; Est GFR (Non-African American) 44.8; Potassium 3.9 mmol/L (3.5-5.1)
[2018-11-17 20:55] LABS: Albumin Globulin Ratio 0.7 (0.9-2); Globulin 3.9 gm/dl (2.5-4.0); Total Protein 6.6 gm/dl (6.4-8.2)
[2018-11-17] MEDS ORDERED: cloNIDine HCl 0.1 MG TAB PO SCH (21:00)
[2018-11-17] MEDS ORDERED: BUMETANIDE 1 MG in SYRINGE 0 ML IV ONE (21:15)
[2018-11-17] MEDS ORDERED: NALOXONE HCL 0.4 MG/1 ML VIAL/CARP IV PRN (21:17)
[2018-11-17 21:21] LABS: Appearance Urine Turbid (Clear); Color Urine Brown
[2018-11-17 21:22] LABS: Protein Urine Positive (Negative); Specific Gravity Urine 1.034 (1.000-1.060)
--- NOTE | 2018-11-17 21:24 | History & Physical Report ---
Date of Service November 17, 2018 Assessment & Plan (1) Abdominal pain: Admit to PCU on telemetry Vital signs every 4 hours CBC CMP daily, trend down WBCs Replenish electrolytes as needed [employer] Dilaudid pump started per Dr. Medina for better pain control Patient complains of constipation, started GoLYTELY as needed since friendly to kidneys Started broad-spectrum antibiotics for possible phlegmon seen on the CT scan Stopped at ertapenem that was given at [facility] and for broad-spectrum s tarted Cefepime, Linezolid, and Flagyl. ID consulted Urology consulted DVT prophylaxis contraindicated since patient has hematuria CBC every 6 hours and if H&H drops below 8 give 1 unit of blood transfusion Bumex in between since patient has CHF and then consider giving the second unit if H&H is not adequately improved and still below 8. Full code Present on Admission?: Yes (2) Hematuria: As the above Present on Admission?: Yes (3) CHF (congestive heart failure): Patient has mild congestion seen on the chest x-rays. She received several liters of fluid at [facility]. Started gentle diuresis with Bumex 1 mg now and tomorrow 0.5 twice daily IV Strict in and out Daily weight Horowitz catheter placed because of the urinalysis Replenish electrolytes as needed such as potassium. Present on Admission?: Yes (4) Obstructive sleep apnea on CPAP: Continue home setting Present on Admission?: Yes (5) Asthma: Continue albuterol 2 puffs every 6 hours as needed for shortness of breath Present on Admission?: Yes (6) Hypothyroidism (acquired): Continue levothyroxine 75 MCG's p.o. every morning Present on Admission?: Yes (7) Hyperlipidemia: Continue atorvastatin 20 mg p.o. at bedtime Present on Admission?: Yes (8) Acute kidney injury (FERNANDA) with acute tubular necrosis (ATN): Mild, creatinine/GFR 1.31/44.8. Avoid nephrotoxic agents. Due to CHF we cannot give patient large amount of fluid. Gentle diuresis with Bumex History of Present Illness Chief Complaint: Right-sided abdominal and flank pain gross hematuria Primary Care Provider: Eben oCrtes Patient is a 58 years old female with past medical history of clear cell carcinoma of the right kidney status post right partial nephrectomy day 11, congestive heart failure, obstructive sleep apnea on CPAP, hypothyroidism, hyperlipidemia, asthma, anxiety, now with acute kidney injury woke up this mo rning with severe right-sided abdominal and flank pain and gross hematuria patient felt bloated and nauseated. Patient was first seen in [facility] emergency department where she was evaluated and treated for right-sided abdominal and flank pain and gross hematuria. She was transferred from the emergency room at [facility] to [facility] this evening. CT scan at [facility] was done which showed atelectasis in the lung bases, small esophageal hiatal hernia, 2.5 cm hypoattenuating lesion in the right lobe of the liver unchanged from the prior study,no pancreatic pathology is observed. The gallbladder is surgically absent. The 4.9 x 2.7cm below the lobe appearing soft tissue density is seen within the gallbladder fossa region without interval change. Bilateral abdominal gland lesion with interval change. Postsurgical changes are seen in the right kidney. There is perihepatic fat stranding on the right side adjacent to the area of the recent surgery. Adjacent to the inferior and lateral aspect of the right kidney somewhat ill defined low density area is seen with associated tiny pockets of air within it suspicious for infection. This area measures up to approximately 7.6 x 7.15 cm seen in the image 67. 2. In the creatinine talk how that plane this area measures approximately 5.4 centimeters. There is considerable adjacent fat stranding extending into the perihepatic area. A tiny pocket of air is seen in relation to the anterior and inferior aspect of the liver seen in the image 53 series 2. And overall evaluation of the findings are suspicious for infection in this area with inflammatory changes and phlegmon. Labs from [facility] reviewed: Potassium 4 chloride 93 CO2 32 anion gap 13 BUN 28, creatinine 1.47, GFR 39, glucose 124, ALT AST 23/84 lactate 1.1 white blood cell 18.8 hemoglobin 12.5 hematocrit 36.9 platelets 289 neutrophils 87.4 ;urine :positive leukocyte esterase 3+, positive nitrate, white blood cells 0-2, red blood cells many, no bacteria in urine, many hyaline casts. When patient arrived to the [facility] labs were reviewed again: WBC 23.16, hemoglobin 11.2 hematocrit 34.1 platelets 269, sodium 136, creatinine 1.31, GFR 44.8, AST 18, ALT 29 BNP 593, urine: Over 30 RBCs, 10-30 V BCs, 4+ urine bacteria. ABG : 7.4, PCO2 42, PO2 of 72 and 10 L nonrebreather, HCO3 25. Patient was given Bumex 1 mg IV, placed on CPAP, oxygenation improved. Patient was admitted to PCU on telemetry for further evaluation and treatment. The case was discussed with Dr. Medina urology and he recommended to continue broad-spectrum antibiotics tonight and have him hold 2 units of blood if H&H drops due to gross hematuria. Allergies Allergy/AdvReac Type Severity Reaction Status Date / Time oxycodone [From Percocet] AdvReac Vomiting Verified 11/06/18 09:47 Home Medications Home Medications Medication Instructions Recorded Confirmed Type acetaminophen 1,000 mg PO Q6H PRN 09/19/18 11/17/18 History albuterol sulfate 2 puff INHALATION Q6H PRN 09/19/18 11/17/18 History atorvastatin 20 mg PO QAM 09/19/18 11/17/18 History buspirone 5 mg PO TID 09/19/18 11/17/18 History clonidine HCl 0.2 mg PO HS 09/19/18 11/17/18 History fluticasone propion-salmeterol 1 inh INHALATION BID PRN 09/19/18 11/17/18 History [Advair Diskus] furosemide [Lasix] 40 mg PO TID 09/19/18 11/17/18 History gabapentin 300 mg PO TID 09/19/18 11/17/18 History hydrocodone-acetaminophen [[place]] 1 tab PO Q6H PRN 09/19/18 11/17/18 History lisinopril 10 mg PO QAM 09/19/18 11/17/18 History loratadine 10 mg PO QAM 09/19/18 11/17/18 History meloxicam 15 mg PO QAM 09/19/18 11/17/18 History potassium chloride 10 meq PO TID 09/19/18 11/17/18 History levothyroxine [Synthroid] 75 mcg PO QAM 09/24/18 11/17/18 History docusate sodium [Colace] 100 mg PO BID PRN #60 cap 11/11/18 11/17/18 Rx oxycodone 5 mg PO BID PRN #14 tab 08/25/19 08/31/19 Rx Past Med/Surg History Social History Preferred Language: Greek Communication Ability: Effective 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 Beliefs That Will Affect Care: None Current Living Situation: Alone Current Living Situation Comment: sister lives in downstairs apartment Other Information That Helps Us Care for You: No Feels Safe at Home: Yes Safety Concerns: Feels Safe At This Time Smoking Status: Current every day smoker Tobacco Type: cigarettes ; Cigarettes Per Day: 1/2 ppd ; Second Hand Exposure: Yes ; Hx Alcohol Use: No Hx Substance Use: No Review of Systems Review of Systems: All systems reviewed & are unremarkable except as noted in HPI & below Physical Exam Constitutional: WD/WN, vitals as above well developed and + morbidly obese Eyes: PERRL, conjunctivae normal, anicteric sclerae ENMT: external ear and nose normal, oropharynx normal Neck: trachea midline, no thyromegaly Respiratory: Auscultation: + crackles (at the bases) Cardiovascular: Heart Sounds: normal S1 and normal S2 Palpation: + palpable S3 Gastrointestinal (Abdomen): Right flank wound clean dry and intact Musculoskeletal: no cyanosis or clubbing, extremities motor strength 5/5 Skin: no rashes, warm and dry Neurologic: patellar DTR's 2+ bilat, sensation intact Psychiatric: A+Ox3, euthymic affect Results & Data Vital Signs (Past 12 Hours) Vital Signs Temp Pulse Pulse Resp BP Pulse Ox 11/17/18 20:27 73 94 11/17/18 19:25 37.4 C 81 24 105/58 L 96 Code Status & VTE Plan Code Status Full code VTE Prophylaxis Plan VTE Prophylaxis will be ordered: No PG Care Time/CCT Total # of Minutes Spent Total Time Spent with Patient: Total time spent is greater than 50% in coordination of care (as documented) at patient's floor/unit and/or counseling patient:
[2018-11-17 21:25] LABS: Bacteria Urine 4+ (Negative); RBC Urine >30 /hpf (0-4)
[2018-11-17 21:26] LABS: Epithelial Cell Urine 0-5 /lpf (0-5)
[2018-11-17] MEDS ORDERED: ERTAPENEM SODIUM 1,000 MG in SODIUM CHLORIDE 0.9% 50 ML IV SCH (21:30)
[2018-11-17] MEDS: ATORVASTATIN 20 MG TAB PO SCH (21:38)
[2018-11-17] MEDS: SODIUM CHLORIDE 0.9% 1000ML 1,000 ML IV SCH (21:39)
[2018-11-17] MEDS ORDERED: LINEZOLID 600 MG/300 ML D5W IV SCH (22:00)
[2018-11-17] MEDS ORDERED: SODIUM CHLORIDE 0.9% 250 ML IV PRN (22:07)
--- NOTE | 2018-11-17 22:11 | Urology Consultation ---
Date of Consultation November 17, 2018 Assessment & Plan (1) Abdominal pain: A/P 58-year-old female with acute onset of right flank pain postoperative day #10 after right partial nephrectomy. Care is discussed with patient and admitting hospitalist Dr. العراقي. As noted, clinically I suspect the possibility of a postoperative bleed is more likely than an afebrile infection of the kidney. Unfortunately, either of these scenarios run the risk of requiring interventional radiology intervention with therapy in the form of a selective embolization of a bleeding vessel or the drainage of a perirenal phlegmon/abscess. Currently the patient appears relatively stable and I think initial conservative management with bedrest, serial hemoglobins, broad-spectrum antibiotics and pain control is reasonable. Dilaudid SHEET METAL WORKER MAINTENANCE is ordered in an attempt to fine-tune pain control while minimizing dosage. This can be alternated for p.o. medication per the primary service. Hopefully blood cultures have been performed at the transferring facility prior to initiation of antibiotics. However, should the patient began to deteriorate either from a hemodynamic perspective or with evidence of encroaching sepsis and untreated infection and transfer to a facility where IR is available may be required. Patient vocalizes understanding of these findings and the tentative plan. We will continue to follow closely. (2) H/O partial nephrectomy: History of Present Illness Reason for Consultation: Right flank pain postoperative day #10 status post right partial nephrectomy. Attending Physician: Bharath العراقي MD History of Present Illness Ms. Hurtado is a pleasant 58-year-old female who is postoperative day #10 status post right partial nephrectomy by my partner Dr. Carroll. She is seen in the PCU after being transferred from [facility] for management locally. She reports that she was doing relatively well postoperatively until approximately 3 days ago when she noted gross hematuria and some postoperative right flank pain. She reports that she had home nurse visits arranged routinely with her health plan and her temperature was being regularly taken and noted to be within normal limits. The pain was relatively tolerable and prompted no further evaluation at that time from the patient. Then this morning upon awakening patient noted a significant increase in her right flank pain with a "tearing" sensation associated with worsening hematuria. She also noted some passage of clots. Pain radiated to the right groin and was exquisite in intensity. She still denies fevers. She presented to the emergency room in [place] for further management and then was transferred locally to the hospitalist service. Patient notes she was tolerating p.o. diet well without emesis during her postoperative time. She does note some constipation with her last bowel movement being Monday but not problematic and of good volume. She denies any fevers, chills, nausea, vomiting or presyncopal episodes in the run up to her acute difficulties. Urology consultation is sought out to assist with her postoperative acute care. I first became aware of Ms. Hurtado at approximately 2:15 PM when I was paged by the emergency room service at [facility] to discuss her care. The emergency room physician suspected that admission would be necessary for pain control and inquired regarding transfer to our facility. Lab work including a leukocytosis, elevated creatinine of approximately 1.4 consistent with discharge values postoperatively at our facility were noted. Patient was noted by the emergency room physician to be afebrile. CT scan report was discussed with me showing perinephric inflammation on the right-hand side consistent with postoperative changes and possible infection. As I discussed with their service a postoperative parenchymal infection with a lack of fever and a general nontoxic appearance seemed less likely clinically than a postoperative bleed. As noted, although a postoperative bleed in the context of the partial nephrectomy often can be managed conservatively with fluid support and transfusion as necessary, should further intervention be necessary the standard of care would be selective embolization of the bleeding vessels performed by an interventional radiology service which is unfortunately not available at our facility, although we were certainly amenable to evaluating the patient at her operative facility. Emergency room physician concurred and left the phone call to discuss with their potential admitting services. I was contacted approximately half hour later with the information that [facility] urology coverage at their facility had recommended the patient be transferred to our institution and that this process was underway. I noted the patient had arrived to the telemetry unit on inspection of the inpatient list shortly before being contacted by Dr. العراقي regarding her care. Dr. العراقي noted some concern over the possibility of air within a 7 cm phlegmon noted on CT report from [facility] which had the potential of requiring interventional radiology drainage. On evaluation of the patient as noted below I found the patient to be uncomfortable although nontoxic. Per discussion with nursing staff there was concern over some oversedation during transport to our facility requiring fluid bolus and creating some respiratory distress. Patient was currently improving with the use of CPAP. CT scan images were able to be transferred to our PACS and were personally reviewed. Tiny pockets of gas are indeed noted in the right perinephric area but no clear abscess or fluid collection was appreciated. Possible radiology interpretation of infection is noted but the possibility of persistence of insufflated carbon dioxide in the surgical bed is also raised especially seen the lack of clear clinical signs of infection. Reactive leukocytosis is also possible although a left shift is noted. Hyperdense material within the collecting system is appreciated consistent with blood products raising the possibility of clot colic as a contributor to the patient's pain. Significant edema and inflammation within the confines of Gerota's fascia and tracking the ureter within these confines into the pelvis consistent with the patient's pain distribution are also noted. No large blood or urine collections are appreciated which is also consistent with the patient's relatively stable hemoglobin on current lab work. Allergies Allergy/AdvReac Type Severity Reaction Status Date / Time oxycodone [From Percocet] AdvReac Vomiting Verified 11/06/18 09:47 Home Medications Home Medications Medication Instructions Recorded Confirmed Type acetaminophen 1,000 mg PO Q6H PRN 09/19/18 11/17/18 History albuterol sulfate 2 puff INHALATION Q6H PRN 09/19/18 11/17/18 History atorvastatin 20 mg PO QAM 09/19/18 11/17/18 History buspirone 5 mg PO TID 09/19/18 11/17/18 History clonidine HCl 0.2 mg PO HS 09/19/18 11/17/18 History fluticasone propion-salmeterol 1 inh INHALATION BID PRN 09/19/18 11/17/18 History [Advair Diskus] furosemide [Lasix] 40 mg PO TID 09/19/18 11/17/18 History gabapentin 300 mg PO TID 09/19/18 11/17/18 History hydrocodone-acetaminophen [[place]] 1 tab PO Q6H PRN 09/19/18 11/17/18 History lisinopril 10 mg PO QAM 09/19/18 11/17/18 History loratadine 10 mg PO QAM 09/19/18 11/17/18 History meloxicam 15 mg PO QAM 09/19/18 11/17/18 History potassium chloride 10 meq PO TID 09/19/18 11/17/18 History levothyroxine [Synthroid] 75 mcg PO QAM 09/24/18 11/17/18 History docusate sodium [Colace] 100 mg PO BID PRN #60 cap 11/11/18 11/17/18 Rx oxycodone 5 mg PO BID PRN #14 tab 11/11/18 11/17/18 Rx Patient History Medical History Anxiety Asthma CHF (congestive heart failure) 2015 acute diastolic, pt reports 2/2 sleep apnea. Seeing cardiology prior to surgery. Cervical radiculitis Pain radiating down LUE Chronic back pain radiates down RLE. Depression HTN (hypertension) Hyperlipidemia Kidney function abnormal Kidney mass Rt Lower extremity weakness RLE - chronic, 2/2 lumbar radiculopathy/spinal stenosis Obesity On home oxygen therapy 3 LPM QHS with CPAP. Has portable O2 to use prn daytime, but has not used Seasonal allergies Sleep apnea CPAP Surgical History History of appendectomy History of cholecystectomy History of fusion of cervical spine History of shoulder surgery left History of tonsillectomy History of tubal ligation Family History Mother Cancer Aunt Cancer Uncle Cancer Social History Preferred Language: Somali Communication Ability: Effective Multicraft Operator Required: No Beliefs That Will Affect Care: None Current Living Situation: Alone Current Living Situation Comment: sister lives in downstairs apartment Other Information That Helps Us Care for You: No Feels Safe at Home: Yes Safety Concerns: Feels Safe At This Time Smoking Status: Current every day smoker Tobacco Type: cigarettes ; Cigarettes Per Day: 1/2 ppd ; Second Hand Exposure: Yes ; Hx Alcohol Use: No Hx Substance Use: No Review of Systems Constitutional: + fatigue; no fever and no chills Eyes: no diplopia and no discharge Ear, Nose, Mouth, Throat: no ear trauma Respiratory: + snoring and + stopping breathing during sleep; no cough Cardiovascular: no chest pain Gastrointestinal: + abdominal pain and + constipation; no nausea and no vomiting Genitourinary: + urinary frequency and + hematuria Bladder pressure reported Musculoskeletal: + back pain Integumentary: no acne and no boil Neurologic: no paralysis Psychiatric: no hopelessness Endocrine: + fatigue; no flushing Hematologic / Lymphatic: no lymphadenopathy Allergy / Immunological: no tongue swelling Physical Exam Constitutional: + acute distress (Moderately uncomfortable, CPAP in place) and + morbidly obese Eyes: eyes not dysmorphic ENMT: Ears: no external ear abnormality Neck: trachea midline; no anterior neck swelling Respiratory: + respiratory distress (Improved with CPAP) Cardiovascular: Vessels: radial pulses present Gastrointestinal (Abdomen): Inspection/Auscultation: + abdomen distended (Difficult to assess due to obesity) Percussion/Palpation: + abdomen tender (Right CVA tenderness and diffuse mild abdominal tenderness with voluntary guarding) and abdomen soft Incisions clean dry and intact without evidence of cellulitis or breakdown Musculoskeletal: Head/Neck/Chest: normocephalic Skin: normal turgor Neurologic: awake; not obtunded Psychiatric: Orientation: alert and oriented x 3 Lymphatic: no lymphadenopathy Results & Data Vital Signs (Past 12 Hours) Vital Signs Temp Pulse Pulse Resp BP Pulse Ox 11/17/18 20:27 73 94 11/17/18 19:25 37.4 C 81 24 105/58 L 96 Laboratory Results Laboratory Results - last 48 hr 11/17/18 11/17/18 11/17/18 20:21 20:21 20:21 WBC 23.16 H RBC 3.55 L Hgb 11.2 L Hct 34.1 L MCV 96.1 MCH 31.5 MCHC 32.8 RDW Std Deviation 50.7 H RDW Coeff of [place] 14.5 Plt Count 269 MPV 9.3 Immature Gran % (Auto) 0.4 Neut % (Auto) 84.2 Lymph % (Auto) 8.6 [place] % (Auto) 5.5 Eos % (Auto) 1.2 Baso % (Auto) 0.1 Immature Gran # (Auto) 0.10 H Neut # (Auto) 19.47 H Lymph # (Auto) 2.00 [place] # (Auto) 1.28 H Eos # (Auto) 0.28 Baso # (Auto) 0.03 ABG pH 7.40 ABG pCO2 42 ABG pO2 72 L ABG HCO3 25 H ABG O2 Saturation 91.1 ABG Base Excess -0.1 Kin Test Pos Barometric Pressure 738.7 Oxygen Given 10L Sodium 136 Potassium 3.9 Chloride 100 Carbon Dioxide 32 Anion Gap 4.0 BUN 27 H Creatinine 1.31 H Est Cr Clr Drug Dosing 78.4 Est GFR ( Amer) 51.9 Est GFR (Non-Af Amer) 44.8 BUN/Creatinine Ratio 20.5 H Glucose 112 H Calcium 8.3 L Total Bilirubin 1.0 AST 18 ALT 29 Alkaline Phosphatase 78 NT-Pro-B Natriuret Pep 593 Total Protein 6.6 Albumin 2.7 L Globulin 3.9 Albumin/Globulin Ratio 0.7 L Urine Color Urine Appearance Urine pH Ur Specific [place] Urine Protein Urine Glucose (UA) Urine Ketones Urine Blood Urine Nitrite Urine Bilirubin Urine Urobilinogen Ur Leukocyte Esterase Urine RBC Urine WBC Ur Epithelial Cells Urine Bacteria 11/17/18 20:31 WBC RBC Hgb Hct MCV MCH MCHC RDW Std Deviation RDW Coeff of [place] Plt Count MPV Immature Gran % (Auto) Neut % (Auto) Lymph % (Auto) [place] % (Auto) Eos % (Auto) Baso % (Auto) Immature Gran # (Auto) Neut # (Auto) Lymph # (Auto) [place] # (Auto) Eos # (Auto) Baso # (Auto) ABG pH ABG pCO2 ABG pO2 ABG HCO3 ABG O2 Saturation ABG Base Excess Kin Test Barometric Pressure Oxygen Given Sodium Potassium Chloride Carbon Dioxide Anion Gap BUN Creatinine Est Cr Clr Drug Dosing Est GFR ( Amer) Est GFR (Non-Af Amer) BUN/Creatinine Ratio Glucose Calcium Total Bilirubin AST ALT Alkaline Phosphatase NT-Pro-B Natriuret Pep Total Protein Albumin Globulin Albumin/Globulin Ratio Urine Color Brown Urine Appearance Turbid A Urine pH Ur Specific [place] 1.034 Urine Protein Positive H Urine Glucose (UA) Urine Ketones Urine Blood Urine Nitrite Urine Bilirubin Urine Urobilinogen Ur Leukocyte Esterase Urine RBC >30 H Urine WBC 10-30 H Ur Epithelial Cells 0-5 Urine Bacteria 4+ H PG Care Time/CCT Total # of Minutes Spent Total Time Spent with Patient: Total time spent is greater than 50% in coordination of care (as documented) at patient's floor/unit and/or counseling patient:
[2018-11-17] MEDS ORDERED: LAVAGE SOLN 240ML BOTTLE PO PRN (22:14)
[2018-11-17] MEDS: HYDROmorphone HCL 0.5MG/ML 50 ML CASSETTE IV PRN (22:55)
[2018-11-17 23:04] LABS: Hematocrit (blood only) 33.6 % (37-47); Hemoglobin 11.2 g/dL (12.0-16.0); Mean Corpuscular Hgb Conc 33.3 g/dL (32-36); Mean Corpuscular Volume 95.7 fL (80-100); Mean Platelet Volume 9.5 fL (7.4-10.4); Platelet Count 280 K/uL (130-400); RDW Coefficient of Variation 14.6 % (11.5-14.5); RDW Standard Deviation 50.7 fL (36.4-46.3); Red Blood Count 3.51 M/uL (4.2-5.4); White Blood Count 22.47 K/uL (4.8-10.8)
[2018-11-17] MEDS: metroNIDAZOLE 500 MG/100 ML BAG IV SCH (23:35)
[2018-11-17] MEDS: LINEZOLID 600 MG/300 ML BAG IV SCH (23:35)
[2018-11-18] MEDS: CEFEPIME 2,000 MG in SYRINGE 7.5 ML IV SCH ×2 (00:26→11:31)
[2018-11-18 04:08] LABS: Basophils # (auto) 0.02 K/uL (0-0.2); Basophils % (auto) 0.1 %; Eosinophils # (auto) 0.41 K/uL (0-0.5); Eosinophils % (auto) 2.2 %; Hematocrit (blood only) 31.6 % (37-47); Hemoglobin 10.5 g/dL (12.0-16.0); Immature Granulocytes # (auto) 0.08 K/uL (0.00-0.02); Immature Granulocytes % (auto) 0.4 %; Lymphocytes # (auto) 1.75 K/uL (1.2-3.4); Lymphocytes % (auto) 9.2 %; Mean Corpuscular Hgb Conc 33.2 g/dL (32-36); Mean Corpuscular Volume 94.9 fL (80-100); Mean Platelet Volume 9.1 fL (7.4-10.4); Monocytes # (auto) 1.31 K/uL (0.11-0.59); Monocytes % (auto) 6.9 %; Neutrophils # (auto) 15.45 K/uL (1.4-6.5); Neutrophils % (auto) 81.2 %; Platelet Count 245 K/uL (130-400); RDW Coefficient of Variation 14.5 % (11.5-14.5); RDW Standard Deviation 50.1 fL (36.4-46.3); Red Blood Count 3.33 M/uL (4.2-5.4); White Blood Count 19.02 K/uL (4.8-10.8)
[2018-11-18 04:25] LABS: Albumin Level 2.6 gm/dl (3.4-5.0); BUN Creatinine Ratio 20.2 (10-20); Calcium 8.1 mg/dl (8.5-10.1); Creatinine Clr Calc Pharmacy 71.8 ml/min; Est GFR (African American) 46.7; Est GFR (Non-African American) 40.3; Potassium 3.9 mmol/L (3.5-5.1)
[2018-11-18 04:29] LABS: Albumin Globulin Ratio 0.7 (0.9-2); Globulin 3.9 gm/dl (2.5-4.0); Total Protein 6.5 gm/dl (6.4-8.2)
[2018-11-18] MEDS: LEVOTHYROXINE SODIUM 75 MCG TABLET PO SCH (06:41)
[2018-11-18] MEDS: metroNIDAZOLE 500 MG/100 ML BAG IV SCH ×3 (06:42→23:22)
[2018-11-18] MEDS: ATORVASTATIN 20 MG TAB PO SCH (07:55)
[2018-11-18] MEDS: LORATADINE 10 MG TAB PO SCH (07:55)
[2018-11-18] MEDS: DOCUSATE SODIUM 100 MG CAP PO SCH ×2 (07:55→20:33)
[2018-11-18] MEDS: LACTOBACILLUS ACIDOPHILUS (FLORANEX) TAB PO SCH (07:56)
[2018-11-18] MEDS ORDERED: BUMETANIDE 0.5 MG in SYRINGE 0 ML IV SCH (09:00)
[2018-11-18] MEDS ORDERED: BUMETANIDE 2 MG in SYRINGE 0 ML IV SCH (09:00)
[2018-11-18] MEDS: LINEZOLID 600 MG/300 ML BAG IV SCH (09:39)
[2018-11-18] MEDS ORDERED: DAPTOmycin 500 MG VIAL IV SCH (10:30)
--- NOTE | 2018-11-18 11:47 | Urology Progress Note ---
Date of Service November 18, 2018 Assessment & Plan (1) H/O partial nephrectomy: (2) Abdominal pain: A/P 58 yo female POD#11 s/p R robotic partial nephrectomy, HD#1 admission for intractable R flank pain, bleed vs. infection vs both. I suspect the source to be a combination of postoperative bleeding (explaining the patient's gross hematuria,clots and acuity of pain), and possible ascending urinary tract infection (explaining her positive culture and leukocytosis). Conservative management of the former with as needed blood transfusion and serial hemoglobins as well as bedrest. Management of the latter with broad- spectrum antibiotics pending organism identification and sensitivities from an outside perspective. Repeat imaging might not be needed if both of these conditions stabilize in a relatively uneventful fashion but should persistent anemia or infectious signs and symptoms continue reimaging with CT scan would likely be indicated. Consider continued SPECIAL EDUCATION CASE MANAGER with bowel regimen. Consider increasing activity with PT evaluation tomorrow should the patient's hemoglobin stabilize and transfusion not be needed. Should severe bleeding or evidence of an abscess arise transfer for interventional radiology services would be needed. Patient vocalizes understanding of the treatment plan. Will follow. (3) Clear cell carcinoma of kidney: pT1a Nx grade 2 clear cell carcinoma of the kidney status post right partial nephrectomy. Excellent prognosis after margin negative surgical extirpation. Subjective 58-year-old female postoperative day #11 status post right partial nephrectomy, hospital day #1 status post transfer from [facility] for intractable right postoperative flank pain. Care is discussed with Dr. Petersen this morning - preliminary urine culture from outside facility is positive. Patient is on broad-spectrum antibiotics for coverage for possible infections. Patient looks and feels better this morning with less respiratory distress. She is off of the CPAP and on 4 L of nasal cannula O2 while maintaining her saturation greater than 90%. She remains in bed and complains of suprapubic, right lower quadrant and right flank pain. This is partially controlled with regular Dilaudid SPECIAL EDUCATION CASE MANAGER use while apparently avoiding sedation. Patient is noted to remain stable but borderline hypotensive and a stable creatinine of 1.4 with a slow downward drift of her hemoglobin is noted. Patient's urine is noted to be a dark red to burgundy with some lengthy clots draining via her [address] consistent with old blood and less consistent with active ongoing bleeding. Past notes and labs are reviewed. Her postoperative pathology report demonstrating margin negative, pT1a Nx grade 2 clear cell carcinoma of the kidney is noted. Review of Systems Constitutional: + fatigue; no fever and no chills Eyes: no diplopia Ear, Nose, Mouth, Throat: no ear trauma Respiratory: + snoring and + stopping breathing during sleep; no cough Cardiovascular: no chest pain Gastrointestinal: + abdominal pain and + constipation; no nausea and no vomiting Genitourinary: + urinary frequency and + hematuria Bladder pressure reported Musculoskeletal: + back pain Integumentary: no acne Neurologic: no paralysis Endocrine: + fatigue; no flushing Hematologic / Lymphatic: no lymphadenopathy Allergy / Immunological: no tongue swelling Physical Exam Constitutional: + morbidly obese; no acute distress (Improved respiratory distress from yesterday) Eyes: eyes not dysmorphic ENMT: Ears: no external ear abnormality Neck: trachea midline; no anterior neck swelling Respiratory: no audible wheezes Cardiovascular: Vessels: radial pulses present Gastrointestinal (Abdomen): Inspection/Auscultation: + abdomen distended (Difficult to assess due to obesity) Percussion/Palpation: + abdomen tender (Right CVA tenderness and diffuse mild abdominal tenderness with voluntary guarding) and abdomen soft inferior port site is open at the level of the skin, no evidence of infection or hernia, exam limited due to morbid obesity. Other incisions clean dry and intact. Musculoskeletal: Head/Neck/Chest: normocephalic Skin: normal turgor Neurologic: awake; not obtunded Psychiatric: Orientation: alert and oriented x 3 Lymphatic: no lymphadenopathy Results & Data Vital Signs (Past 12 Hours) Vital Signs Temp Pulse Pulse Resp BP Pulse Ox 11/18/18 11:09 37.1 C 19 98/51 L 94 11/18/18 08:00 37.4 C 64 75 16 99/61 L 91 11/18/18 07:27 36.9 C 70 21 99/61 L 93 11/18/18 05:39 63 16 93 11/18/18 04:00 72 20 92/56 L 91 11/18/18 03:00 66 18 91/55 L 92 11/18/18 02:20 36.7 C 67 19 90/54 L 92 11/18/18 01:25 64 18 94 11/18/18 00:20 36.9 C 67 20 101/65 90 11/18/18 00:00 64 Laboratory Results Laboratory Results - last 48 hr 11/17/18 11/17/18 11/17/18 20:21 20:21 20:21 WBC 23.16 H RBC 3.55 L Hgb 11.2 L Hct 34.1 L MCV 96.1 MCH 31.5 MCHC 32.8 RDW Std Deviation 50.7 H RDW Coeff of [place] 14.5 Plt Count 269 MPV 9.3 Immature Gran % (Auto) 0.4 Neut % (Auto) 84.2 Lymph % (Auto) 8.6 [place] % (Auto) 5.5 Eos % (Auto) 1.2 Baso % (Auto) 0.1 Immature Gran # (Auto) 0.10 H Neut # (Auto) 19.47 H Lymph # (Auto) 2.00 [place] # (Auto) 1.28 H Eos # (Auto) 0.28 Baso # (Auto) 0.03 ABG pH 7.40 ABG pCO2 42 ABG pO2 72 L ABG HCO3 25 H ABG O2 Saturation 91.1 ABG Base Excess -0.1 Kin Test Pos Barometric Pressure 738.7 Oxygen Given 10L Sodium 136 Potassium 3.9 Chloride 100 Carbon Dioxide 32 Anion Gap 4.0 BUN 27 H Creatinine 1.31 H Est Cr Clr Drug Dosing 78.4 Est GFR ( Amer) 51.9 Est GFR (Non-Af Amer) 44.8 BUN/Creatinine Ratio 20.5 H Glucose 112 H Calcium 8.3 L Total Bilirubin 1.0 AST 18 ALT 29 Alkaline Phosphatase 78 NT-Pro-B Natriuret Pep 593 Total Protein 6.6 Albumin 2.7 L Globulin 3.9 Albumin/Globulin Ratio 0.7 L Urine Color Urine Appearance Urine pH Ur Specific [place] Urine Protein Urine Glucose (UA) Urine Ketones Urine Blood Urine Nitrite Urine Bilirubin Urine Urobilinogen Ur Leukocyte Esterase Urine RBC Urine WBC Ur Epithelial Cells Urine Bacteria Blood Type Antibody Screen Crossmatch 11/17/18 11/17/18 11/17/18 20:31 22:45 22:45 WBC 22.47 H RBC 3.51 L Hgb 11.2 L Hct 33.6 L MCV 95.7 MCH 31.9 MCHC 33.3 RDW Std Deviation 50.7 H RDW Coeff of [place] 14.6 H Plt Count 280 MPV 9.5 Immature Gran % (Auto) Neut % (Auto) Lymph % (Auto) [place] % (Auto) Eos % (Auto) Baso % (Auto) Immature Gran # (Auto) Neut # (Auto) Lymph # (Auto) [place] # (Auto) Eos # (Auto) Baso # (Auto) ABG pH ABG pCO2 ABG pO2 ABG HCO3 ABG O2 Saturation ABG Base Excess Kin Test Barometric Pressure Oxygen Given Sodium Potassium Chloride Carbon Dioxide Anion Gap BUN Creatinine Est Cr Clr Drug Dosing Est GFR ( Amer) Est GFR (Non-Af Amer) BUN/Creatinine Ratio Glucose Calcium Total Bilirubin AST ALT Alkaline Phosphatase NT-Pro-B Natriuret Pep Total Protein Albumin Globulin Albumin/Globulin Ratio Urine Color Brown Urine Appearance Turbid A Urine pH Ur Specific [place] 1.034 Urine Protein Positive H Urine Glucose (UA) Urine Ketones Urine Blood Urine Nitrite Urine Bilirubin Urine Urobilinogen Ur Leukocyte Esterase Urine RBC >30 H Urine WBC 10-30 H Ur Epithelial Cells 0-5 Urine Bacteria 4+ H Blood Type O Positive Antibody Screen NEGATIVE Crossmatch See Detail 11/18/18 11/18/18 03:56 03:56 WBC 19.02 H RBC 3.33 L Hgb 10.5 L Hct 31.6 L MCV 94.9 MCH 31.5 MCHC 33.2 RDW Std Deviation 50.1 H RDW Coeff of [place] 14.5 Plt Count 245 MPV 9.1 Immature Gran % (Auto) 0.4 Neut % (Auto) 81.2 Lymph % (Auto) 9.2 [place] % (Auto) 6.9 Eos % (Auto) 2.2 Baso % (Auto) 0.1 Immature Gran # (Auto) 0.08 H Neut # (Auto) 15.45 H Lymph # (Auto) 1.75 [place] # (Auto) 1.31 H Eos # (Auto) 0.41 Baso # (Auto) 0.02 ABG pH ABG pCO2 ABG pO2 ABG HCO3 ABG O2 Saturation ABG Base Excess Kin Test Barometric Pressure Oxygen Given Sodium 136 Potassium 3.9 Chloride 99 Carbon Dioxide 33 H Anion Gap 4.0 BUN 29 H Creatinine 1.43 H Est Cr Clr Drug Dosing 71.8 Est GFR ( Amer) 46.7 Est GFR (Non-Af Amer) 40.3 BUN/Creatinine Ratio 20.2 H Glucose 113 H Calcium 8.1 L Total Bilirubin 1.0 AST 14 L ALT 24 Alkaline Phosphatase 72 NT-Pro-B Natriuret Pep 967 H Total Protein 6.5 Albumin 2.6 L Globulin 3.9 Albumin/Globulin Ratio 0.7 L Urine Color Urine Appearance Urine pH Ur Specific [place] Urine Protein Urine Glucose (UA) Urine Ketones Urine Blood Urine Nitrite Urine Bilirubin Urine Urobilinogen Ur Leukocyte Esterase Urine RBC Urine WBC Ur Epithelial Cells Urine Bacteria Blood Type Antibody Screen Crossmatch PG Care Time/CCT Total # of Minutes Spent Total Time Spent with Patient: Total time spent is greater than 50% in coordination of care (as documented) at patient's floor/unit and/or counseling patient:
--- NOTE | 2018-11-18 11:47 | Hospitalist Progress Note ---
Date of Service November 18, 2018 Assessment & Plan (1) Sepsis: 2nd to complicated UTI. Supportive care, IV antibiotics, etc. Need to call [facility] once again for update on blood and urine cx's tomorrow. Follow cultures at [facility] as well. (2) Complicated UTI (urinary tract infection): Cx at [facility] and [facility] both with gram positive cocci. Follow-up on cultures tomorrow. Until cultures are finalized continue cefepime, daptomycin. Flagyl was initiated yesterday because CT abd/pelvis done at [facility] prior to tranfer to [facility] showed possible phlegmon of right kidney (vs blood, etc). ID has been consulted; appreciate their recs. Patient with considerable right flank pain - possibly due to bleeding - despite use of [employer] dilaudid. Current parameters - 0.2mg demand dose; lock-out q10min; total hourly dose (max) 1.2mg Will change to -- 0.4mg demand dose; lock-out q15min; total hourly dose (max) 1.6mg will reassess in am (3) Acute kidney injury: in setting of recent right sided partial nephrectomy, complicated UTI, and sepsis. BMP in am. (4) Acute respiratory failure with hypoxia: en route from [facility] and [facility] the patient had to be initiated on CPAP. there was some concern about acute CHF from copious volume resuscitation in setting of sepsis. other possibility was that of respiratory depression from narcotics. either way respiratory status is improved today. her recorded weight today is BELOW her usual weight at home. she did not have robust response to IV bumex this am. mucous membranes look dry on exam. thus, if she was volume overloaded last pm, it appears it has resolved. would place diuretics on HOLD for now and simply observe. would try to match I's and O's. (5) Acute blood loss anemia: 2nd to gross hematuria. concern of bleeding from operative site in the right kidney. urology following this. if hematuria was to worsen leading to ongoing downward trend of H/H then she would need to be transferred to tertiary care center for IR intervention. cbc in am. (6) Ileus: x-rays today with evidence of ileus. clinically also with ileus. would not advance diet beyond clears. narcotics will worsen this issue of course. bowel regimen including dulcolax daily. serial exams. ileus is likely due to recent surgery, and now UTI. (7) Clear cell carcinoma of kidney: right - s/p partial nephrectomy at [facility] on 11/07/18. appreciate Dr Medina's consult and recs. see above re: concerns of bleeding, UTI, etc. (8) Hematuria: either 2nd to UTI and/or bleeding from right kidney operative site. daily CBC. see above. (9) Obstructive sleep apnea on CPAP: cont CPAP need to watch for excessive sedation in setting of [employer] dilaudid use (10) Asthma: no exacerbation at this time cont usual outpatient inhalers etc (11) Hypothyroidism (acquired): cont synthroid 75mcg daily uncertain of last TSH check would check it while here (12) Hypertension: HOLD home meds BPs low-normal in setting of sepsis (13) Peripheral neuropathy: holding gabapentin in setting of FERNANDA, sepsis, etc resume once more stable (14) Hyperlipidemia: holding statin due to daptomycin use (15) Morbid obesity with BMI of 50.0-59.9, adult: BMI 59 (16) DVT prophylaxis: SCDs chemical means contraindicated in setting of gross hematuria left message for pt's sister on her voicemail - 11/18/18 Subjective patient complains of severe pain over the right flank as well as expected location of her bladder. review of [employer] dilaudid shows she has requested doses 12 times in 2-3 hours and received about 7 doses. states "it lasts (the dilaudid) for about 10 minutes." tele stable overnight. she mentions no stool since last Monday. passing minimal gas. feels bloated/distended. has poor appetite. denies dyspnea. does not use daytime O2 at home but uses it at night with her CPAP. Review of Systems Constitutional: + fever Ear, Nose, Mouth, Throat: + dry mouth Respiratory: no cough and no dyspnea Cardiovascular: no chest pain Gastrointestinal: + abdominal pain, + nausea and + constipation; no vomiting and no excessive flatulence Genitourinary: + hematuria Physical Exam Constitutional: + acute distress (due to pain), + ill appearing and + morbidly obese; no altered mental status ENMT: Mouth: + dry oral mucous membranes Respiratory: no labored breathing Auscultation: + diminished lung sounds (bases); no crackles and no wheezes Cardiovascular: Rate/Rhythm: regular rate and regular rhythm Heart Sounds: normal S1 and normal S2; no murmur Vessels: posterior tibial pulses present and dorsalis pedis pulses present; no JVD Extremities: + edema (trace b/l ) Gastrointestinal (Abdomen): Inspection/Auscultation: + abdomen distended (mod- severe); + abnormal bowel sounds (decreased) Percussion/Palpation: + abdomen tender (right flank and suprapubic region); no guarding and + abdomen not soft Psychiatric: A+Ox3, euthymic affect Results & Data Vital Signs (Past 12 Hours) Vital Signs Temp Pulse Pulse Resp BP Pulse Ox 11/18/18 11:09 37.1 C 19 98/51 L 94 11/18/18 08:00 37.4 C 64 75 16 99/61 L 91 11/18/18 07:27 36.9 C 70 21 99/61 L 93 11/18/18 05:39 63 16 93 11/18/18 04:00 72 20 92/56 L 91 11/18/18 03:00 66 18 91/55 L 92 11/18/18 02:20 36.7 C 67 19 90/54 L 92 11/18/18 01:25 64 18 94 11/18/18 00:20 36.9 C 67 20 101/65 90 11/18/18 00:00 64 Laboratory Results Laboratory Results - last 24 hr 11/17/18 11/17/18 11/17/18 20:21 20:21 20:21 WBC 23.16 H RBC 3.55 L Hgb 11.2 L Hct 34.1 L MCV 96.1 MCH 31.5 MCHC 32.8 RDW Std Deviation 50.7 H RDW Coeff of Maria [place] Carm[place] 14.5 Plt Count 269 MPV 9.3 Immature Gran % (Auto) 0.4 Neut % (Auto) 84.2 Lymph % (Auto) 8.6 Logan % (Auto) 5.5 Eos % (Auto) 1.2 Baso % (Auto) 0.1 Immature Gran # (Auto) 0.10 H Neut # (Auto) 19.47 H Lymph # (Auto) 2.00 Logan # (Auto) 1.28 H Eos # (Auto) 0.28 Baso # (Auto) 0.03 ABG pH 7.40 ABG pCO2 42 ABG pO2 72 L ABG HCO3 25 H ABG O2 Saturation 91.1 ABG Base Excess -0.1 Kin Test Pos Barometric Pressure 738.7 Oxygen Given 10L Sodium 136 Potassium 3.9 Chloride 100 Carbon Dioxide 32 Anion Gap 4.0 BUN 27 H Creatinine 1.31 H Est Cr Clr Drug Dosing 78.4 Est GFR ( Amer) 51.9 Est GFR (Non-Af Amer) 44.8 BUN/Creatinine Ratio 20.5 H Glucose 112 H Calcium 8.3 L Total Bilirubin 1.0 AST 18 ALT 29 Alkaline Phosphatase 78 NT-Pro-B Natriuret Pep 593 Total Protein 6.6 Albumin 2.7 L Globulin 3.9 Albumin/Globulin Ratio 0.7 L Urine Color Urine Appearance Urine pH Ur Specific [place] Urine Protein Urine Glucose (UA) Urine Ketones Urine Blood Urine Nitrite Urine Bilirubin Urine Urobilinogen Ur Leukocyte Esterase Urine RBC Urine WBC Ur Epithelial Cells Urine Bacteria Blood Type Antibody Screen Crossmatch 11/17/18 11/17/18 11/17/18 20:31 22:45 22:45 WBC 22.47 H RBC 3.51 L Hgb 11.2 L Hct 33.6 L MCV 95.7 MCH 31.9 MCHC 33.3 RDW Std Deviation 50.7 H RDW Coeff of [place] 14.6 H Plt Count 280 MPV 9.5 Immature Gran % (Auto) Neut % (Auto) Lymph % (Auto) Logan % (Auto) Eos % (Auto) Baso % (Auto) Immature Gran # (Auto) Neut # (Auto) Lymph # (Auto) Logan # (Auto) Eos # (Auto) Baso # (Auto) ABG pH ABG pCO2 ABG pO2 ABG HCO3 ABG O2 Saturation ABG Base Excess Kin Test Barometric Pressure Oxygen Given Sodium Potassium Chloride Carbon Dioxide Anion Gap BUN Creatinine Est Cr Clr Drug Dosing Est GFR ( Amer) Est GFR (Non-Af Amer) BUN/Creatinine Ratio Glucose Calcium Total Bilirubin AST ALT Alkaline Phosphatase NT-Pro-B Natriuret Pep Total Protein Albumin Globulin Albumin/Globulin Ratio Urine Color Brown Urine Appearance Turbid A Urine pH Ur Specific [place] 1.034 Urine Protein Positive H Urine Glucose (UA) Urine Ketones Urine Blood Urine Nitrite Urine Bilirubin Urine Urobilinogen Ur Leukocyte Esterase Urine RBC >30 H Urine WBC 10-30 H Ur Epithelial Cells 0-5 Urine Bacteria 4+ H Blood Type O Positive Antibody Screen NEGATIVE Crossmatch See Detail 11/18/18 11/18/18 03:56 03:56 WBC 19.02 H RBC 3.33 L Hgb 10.5 L Hct 31.6 L MCV 94.9 MCH 31.5 MCHC 33.2 RDW Std Deviation 50.1 H RDW Coeff of Maria [place] Carmen 14.5 Plt Count 245 MPV 9.1 Immature Gran % (Auto) 0.4 Neut % (Auto) 81.2 Lymph % (Auto) 9.2 Logan % (Auto) 6.9 Eos % (Auto) 2.2 Baso % (Auto) 0.1 Immature Gran # (Auto) 0.08 H Neut # (Auto) 15.45 H Lymph # (Auto) 1.75 Logan # (Auto) 1.31 H Eos # (Auto) 0.41 Baso # (Auto) 0.02 ABG pH ABG pCO2 ABG pO2 ABG HCO3 ABG O2 Saturation ABG Base Excess Kin Test Barometric Pressure Oxygen Given Sodium 136 Potassium 3.9 Chloride 99 Carbon Dioxide 33 H Anion Gap 4.0 BUN 29 H Creatinine 1.43 H Est Cr Clr Drug Dosing 71.8 Est GFR ( Amer) 46.7 Est GFR (Non-Af Amer) 40.3 BUN/Creatinine Ratio 20.2 H Glucose 113 H Calcium 8.1 L Total Bilirubin 1.0 AST 14 L ALT 24 Alkaline Phosphatase 72 NT-Pro-B Natriuret Pep 967 H Total Protein 6.5 Albumin 2.6 L Globulin 3.9 Albumin/Globulin Ratio 0.7 L Urine Color Urine Appearance Urine pH Ur Specific [place] Urine Protein Urine Glucose (UA) Urine Ketones Urine Blood Urine Nitrite Urine Bilirubin Urine Urobilinogen Ur Leukocyte Esterase Urine RBC Urine WBC Ur Epithelial Cells Urine Bacteria Blood Type Antibody Screen Crossmatch Diagnostic Findings urine cx - [facility] - [facility], >100,000 urine cx - [facility] - strep species blood cx's at [facility] thus far negative PG Care Time/CCT Total # of Minutes Spent Total Time Spent with Patient: Total time spent is greater than 50% in coordination of care (as documented) at patient's floor/unit and/or counseling patient: (1) Sepsis Sepsis type: Streptococcus, other Sepsis acute organ dysfunction status: unspecified Qualified Code(s): A40.8 - Other streptococcal sepsis (2) Clear cell carcinoma of kidney Laterality: right Qualified Code(s): C64.1 - Malignant neoplasm of right kidney, except renal pelvis (3) Hematuria Hematuria type: gross Qualified Code(s): R31.0 - Gross hematuria (4) Asthma Asthma severity: unspecified severity Asthma persistence: unspecified Asthma complication type: unspecified Qualified Code(s): J45.909 - Unspecified asthma, uncomplicated (5) Hypertension Hypertension type: essential hypertension Qualified Code(s): I10 - Essential (primary) hypertension (6) Peripheral neuropathy Peripheral neuropathy type: polyneuropathy, unspecified Qualified Code(s): G62.9 - Polyneuropathy, unspecified (7) Hyperlipidemia Hyperlipidemia type: mixed hyperlipidemia Qualified Code(s): E78.2 - Mixed hyperlipidemia
[2018-11-18] MEDS ORDERED: DAPTOmycin 625 MG in SYRINGE 0 ML IV SCH (12:00)
[2018-11-18] MEDS: BISACODYL 5 MG TABEC PO SCH (12:21)
[2018-11-18] MEDS: POLYETHYLENE (MIRALAX) 17 GM PACK PO SCH ×2 (12:21→20:33)
--- NOTE | 2018-11-18 16:11 | Infectious Disease Consult ---
Date of Consultation November 18, 2018 Assessment & Plan (1) Complicated UTI (urinary tract infection): 58-year-old female status post nephrectomy for carcinoma, now with acute onset of right flank pain and hematuria. Agree with urology that bleeding may be causing her current symptoms. However given positive urine culture think it appropriate to continue antibiotics for now. Await final culture results. Will follow. (2) Streptococcal infection: History of Present Illness Reason for Consultation: UTI status post nephrectomy Attending Physician: Fco Petersen History of Present Illness 58-year-old female with history of hypertension, hypothyroidism, hyperlipidemia, chronic obstructive sleep apnea, was recently diagnosed with clear cell carcinoma of the right kidney and approximately 2 weeks ago underwent right nephrectomy. She had been recovering reasonably well, but then on the developed acute onset of severe right-sided flank pain and hematuria. Was seen and [facility] emergency room where CT scan showed evidence of possible right-sided infection versus bleeding with area of low density with some gas. Was transferred here for further management. Continues to complain of severe right-sided flank pain. Started empirically on daptomycin and cefepime. Cultures of urine here are now growing streptococcal species. No available cultures from [place] at present. Has mild dyspnea. Allergies Allergy/AdvReac Type Severity Reaction Status Date / Time oxycodone [From Percocet] AdvReac Vomiting Verified 11/06/18 09:47 Home Medications Home Medications Medication Instructions Recorded Confirmed Type acetaminophen 1,000 mg PO Q6H PRN 09/19/18 11/17/18 History albuterol sulfate 2 puff INHALATION Q6H PRN 09/19/18 11/17/18 History atorvastatin 20 mg PO QAM 09/19/18 11/17/18 History buspirone 5 mg PO TID 09/19/18 11/17/18 History clonidine HCl 0.2 mg PO HS 09/19/18 11/17/18 History fluticasone propion-salmeterol 1 inh INHALATION BID PRN 09/19/18 11/17/18 History [Advair Diskus] furosemide [Lasix] 40 mg PO TID 09/19/18 11/17/18 History gabapentin 300 mg PO TID 09/19/18 11/17/18 History hydrocodone-acetaminophen [[place]] 1 tab PO Q6H PRN 09/19/18 11/17/18 History lisinopril 10 mg PO QAM 09/19/18 11/17/18 History loratadine 10 mg PO QAM 09/19/18 11/17/18 History meloxicam 15 mg PO QAM 09/19/18 11/17/18 History potassium chloride 10 meq PO TID 09/19/18 11/17/18 History levothyroxine [Synthroid] 75 mcg PO QAM 09/24/18 11/17/18 History docusate sodium [Colace] 100 mg PO BID PRN #60 cap 11/11/18 11/17/18 Rx oxycodone 5 mg PO BID PRN #14 tab 11/11/18 11/17/18 Rx Patient History Medical History Anxiety Asthma CHF (congestive heart failure) 2014 acute diastolic, pt reports 2/2 sleep apnea. Seeing cardiology prior to surgery. Cervical radiculitis Pain radiating down LUE Chronic back pain radiates down RLE. Depression HTN (hypertension) Hyperlipidemia Kidney function abnormal Kidney mass Rt Lower extremity weakness RLE - chronic, 2/2 lumbar radiculopathy/spinal stenosis Obesity On home oxygen therapy 3 LPM QHS with CPAP. Has portable O2 to use prn daytime, but has not used Seasonal allergies Sleep apnea CPAP Surgical History History of appendectomy History of cholecystectomy History of fusion of cervical spine History of shoulder surgery left History of tonsillectomy History of tubal ligation Family History Mother Cancer Aunt Cancer Uncle Cancer Social History Preferred Language: Micronesian Communication Ability: Effective Director Validation Required: No Beliefs That Will Affect Care: None Current Living Situation: Alone Current Living Situation Comment: sister lives in downstairs apartment Other Information That Helps Us Care for You: No Feels Safe at Home: Yes Safety Concerns: Feels Safe At This Time Smoking Status: Current every day smoker Tobacco Type: cigarettes ; Cigarettes Per Day: 1/2 ppd ; Second Hand Exposure: Yes ; Hx Alcohol Use: No Hx Substance Use: No Review of Systems Review of Systems: All systems reviewed & are unremarkable except as noted in HPI & below Physical Exam Constitutional: WD/WN, vitals as above + acute distress, + ill appearing and + obese Eyes: PERRL, conjunctivae normal, anicteric sclerae ENMT: external ear and nose normal, oropharynx normal Neck: trachea midline, no thyromegaly neck nontender Respiratory: normal respiratory effort, lungs clear to auscultation normal percussion; no respiratory distress Cardiovascular: RRR, no murmur, no edema Heart Sounds: no gallop and no cardiac rub Gastrointestinal (Abdomen): Inspection/Auscultation: abdomen normal to inspection, + abdomen distended and + hyperactive bowel sounds Percussion/Palpation: + abdomen tender (Right flank and right-sided); no hepatosplenomegaly Musculoskeletal: no cyanosis or clubbing, extremities motor strength 5/5 Head/Neck/Chest: normocephalic, head atraumatic and neck supple Skin: no rashes, warm and dry Neurologic: patellar DTR's 2+ bilat, sensation intact moves all extremities and awake Psychiatric: A+Ox3, euthymic affect Lymphatic: no cervical or axillary lymphadenopathy no inguinal lymphadenopathy Results & Data Vital Signs (Past 12 Hours) Vital Signs Temp Pulse Pulse Resp BP Pulse Ox 11/18/18 16:00 72 11/18/18 15:39 37.5 C 72 18 117/70 90 11/18/18 11:09 37.1 C 19 98/51 L 94 11/18/18 08:00 37.4 C 64 75 16 99/61 L 91 11/18/18 07:27 36.9 C 70 21 99/61 L 93 11/18/18 05:39 63 16 93 Laboratory Results Short CBC 11/17/18 11/17/18 11/18/18 Range/Units 20:21 22:45 03:56 WBC 23.16 H 22.47 H 19.02 H (4.8-10.8) K/uL Hgb 11.2 L 11.2 L 10.5 L (12.0-16.0) g/dL Hct 34.1 L 33.6 L 31.6 L (37-47) % Plt Count 269 280 245 (130-400) K/uL BMP 11/17/18 11/18/18 20:21 03:56 Sodium 136 136 Potassium 3.9 3.9 Chloride 100 99 Carbon Dioxide 32 33 H BUN 27 H 29 H Creatinine 1.31 H 1.43 H Glucose 112 H 113 H Calcium 8.3 L 8.1 L Liver Function 11/17/18 11/18/18 Range/Units 20:21 03:56 Total Bilirubin 1.0 1.0 (0.2-1) mg/dl AST 18 14 L (15-37) U/L ALT 29 24 (12-78) U/L Alkaline Phosphatase 78 72 (45-117) U/L Albumin 2.7 L 2.6 L (3.4-5.0) gm/dl Urine 11/17/18 Range/Units 20:31 Urine Color Brown Urine Appearance Turbid A (Clear) Urine pH (4.5-7.5) Ur Specific [place] 1.034 (1.000-1.060) Urine Protein Positive H (Negative) Urine Glucose (UA) (Negative) Diagnostic Findings Microbiology 11/17/18 20:31 Urine,Indwelling Cath Urine Culture - Preliminary Streptococcus species XR chest 1V portable CLINICAL HISTORY: 58 years-old Female presenting with sob, CHF. TECHNIQUE: Portable upright AP view of the chest was obtained. COMPARISON: 11/06/2018. FINDINGS: Cardiac silhouette moderately enlarged although some degree of mediastinal lipomatosis may account for the appearance of the mediastinum. Mild pulmonary vascular prominence. Linear opacities with a central and basilar predominance, left greater than right. No large effusion or pneumothorax. Cervical fusion hardware. IMPRESSION: 1. Evaluation limited by patient body habitus and portable technique. This moderately limits diagnostic sensitivity the exam. 2. Cardiomegaly with mild volume overload. 3. Suspected central and basilar atelectasis greater on the left. Electronically signed by: Sorin Muir M.D. 11/17/2018 8:37 PM PG Care Time/CCT Total # of Minutes Spent Total Time Spent with Patient: Total time spent is greater than 50% in coordination of care (as documented) at patient's floor/unit and/or counseling patient:
[2018-11-18] MEDS: DAPTOmycin 625 MG in SYRINGE 0 ML IV SCH (18:29)
--- NOTE | 2018-11-18 22:13 | XRay Report ---
ABDOMEN 2 VIEWS HISTORY: severe constipation, recent surgery; ?ileus? COMPARISON: Outside hospital abdomen and pelvis CT 11/17/2018. FINDINGS: Prior cholecystectomy. No pneumoperitoneum. No pneumatosis. Mildly distended gas-filled loo ps of large and small bowel seen within the abdomen. This favors a mild ileus. No renal or ureteral c alculi. IMPRESSION: Mildly distended gas-filled loops of large and small bowel seen within the abdomen. This favors an il eus. Electronically signed by: Galileo Pickard M.D. 11/18/2018 10:11 PM
[2018-11-18] MEDS: SODIUM CHLORIDE 0.9% 1000ML 1,000 ML IV SCH (23:22)
[2018-11-19] MEDS: CEFEPIME 2,000 MG in SYRINGE 7.5 ML IV SCH ×2 (00:18→12:16)
[2018-11-19] MEDS: HYDROmorphone HCL 0.5MG/ML 50 ML CASSETTE IV PRN (04:11)
--- NOTE | 2018-11-19 04:52 | Progress Note ---
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, no prior hx of similar rash Rash swab for PCR ordered (PCR more sensitive) started on valacyclovir 1000mg BID x 7 days Results & Data Vital Signs (Past 12 Hours) Vital Signs Temp Pulse Pulse Resp BP Pulse Ox 11/19/18 03:12 37.3 C 77 19 146/60 H 93 11/18/18 23:28 36.7 C 72 19 114/62 92 11/18/18 23:16 77 16 93 11/18/18 19:06 37.6 C H 76 19 142/69 H 91 PG Care Time/CCT Total # of Minutes Spent Total Time Spent with Patient: Total time spent is greater than 50% in coordination of care (as documented) at patient's floor/unit and/or counseling patient: Resident Activity Tracking Resident Involvement: Resident Care Provided Care Provided: Adult Hospital Medicine
[2018-11-19] MEDS ORDERED: ACETAMINOPHEN 1,000 MG/100 ML VIAL IV STA (05:27)
[2018-11-19] MEDS: metroNIDAZOLE 500 MG/100 ML BAG IV SCH ×2 (05:45→14:58)
[2018-11-19 06:14] LABS: Basophils # (auto) 0.02 K/uL (0-0.2); Basophils % (auto) 0.1 %; Eosinophils # (auto) 0.37 K/uL (0-0.5); Eosinophils % (auto) 2.2 %; Hemoglobin 10.6 g/dL (12.0-16.0); Immature Granulocytes # (auto) 0.06 K/uL (0.00-0.02); Immature Granulocytes % (auto) 0.4 %; Lymphocytes # (auto) 1.82 K/uL (1.2-3.4); Lymphocytes % (auto) 10.7 %; Mean Corpuscular Hgb Conc 33.1 g/dL (32-36); Mean Corpuscular Volume 96.1 fL (80-100); Mean Platelet Volume 9.6 fL (7.4-10.4); Monocytes # (auto) 1.15 K/uL (0.11-0.59); Monocytes % (auto) 6.8 %; Neutrophils # (auto) 13.54 K/uL (1.4-6.5); Neutrophils % (auto) 79.8 %; Platelet Count 257 K/uL (130-400); RDW Coefficient of Variation 14.3 % (11.5-14.5); RDW Standard Deviation 49.8 fL (36.4-46.3); Red Blood Count 3.33 M/uL (4.2-5.4); White Blood Count 16.96 K/uL (4.8-10.8)
[2018-11-19 06:49] LABS: BUN Creatinine Ratio 16.6 (10-20); Calcium 8.5 mg/dl (8.5-10.1); Est GFR (African American) 52.9; Est GFR (Non-African American) 45.6; Magnesium 2.1 mg/dl (1.8-2.4); Potassium 3.6 mmol/L (3.5-5.1)
[2018-11-19] MEDS: BISACODYL 5 MG TABEC PO SCH (09:44)
[2018-11-19] MEDS: LORATADINE 10 MG TAB PO SCH (09:45)
[2018-11-19] MEDS: LACTOBACILLUS ACIDOPHILUS (FLORANEX) TAB PO SCH (09:45)
[2018-11-19] MEDS: DOCUSATE SODIUM 100 MG CAP PO SCH ×2 (09:45→19:58)
[2018-11-19] MEDS: POLYETHYLENE (MIRALAX) 17 GM PACK PO SCH ×2 (09:46→19:59)
[2018-11-19] MEDS: VALACYCLOVIR HCL 500 MG TABLET PO SCH ×2 (09:46→19:58)
[2018-11-19] MEDS: LEVOTHYROXINE SODIUM 75 MCG TABLET PO SCH (09:49)
--- NOTE | 2018-11-19 10:38 | Hospitalist Progress Note ---
Date of Service November 19, 2018 Assessment & Plan (1) Sepsis: 2nd to complicated UTI. urine culture from [facility] with de la rosa sensitive E faecalis blood cultures from 11/17 with no growth at three days time urine culture here also with E faecalis blood cultures negative continue Cefepime and Daptomycin (2) Complicated UTI (urinary tract infection): Cx at [facility] and [facility] both with E faecalis Until cultures are finalized continue cefepime, daptomycin. ID has been consulted; appreciate their recs. Patient with considerable right flank pain - possibly due to bleeding - despite use of KEYMODULE ASSEMBLY SUPERVISOR dilaudid. continue KEYMODULE ASSEMBLY SUPERVISOR for today, hopeful to change tomorrow (3) Acute kidney injury: in setting of recent right sided partial nephrectomy, complicated UTI, and sepsis. Cr trending down to 1.29, improvement daily, non oliguric (4) Acute respiratory failure with hypoxia: unclear etiology but breathing has been stable here uses CPAP at night for WENCESLAO will likely resume diuretics tomorrow to keep lungs dry (5) Acute blood loss anemia: 2nd to gross hematuria. concern of bleeding from operative site in the right kidney. urology following this. if hematuria was to worsen leading to ongoing downward trend of H/H then she would need to be transferred to tertiary care center for IR intervention. Hb is slightly lower but stable at 10.5, repeat tomorrow (6) Ileus: x-rays 11/18 with evidence of ileus. clinically also with ileus, distended, hypoactive bowel sounds would not advance diet beyond clears. difficult because KEYMODULE ASSEMBLY SUPERVISOR could make worse bowel regimen including dulcolax daily. (7) Clear cell carcinoma of kidney: right - s/p partial nephrectomy at [facility] on 11/07/18. appreciate Dr Medina's consult and recs. see above re: concerns of bleeding, UTI, etc. (8) Hematuria: either 2nd to UTI and/or bleeding from right kidney operative site. daily CBC. see above. (9) Obstructive sleep apnea on CPAP: cont CPAP need to watch for excessive sedation in setting of KEYMODULE ASSEMBLY SUPERVISOR dilaudid use (10) Asthma: no exacerbation at this time cont usual outpatient inhalers etc (11) Hypothyroidism (acquired): cont synthroid 75mcg daily uncertain of last TSH check would check it while here (12) Hypertension: HOLD home meds resume tomorrow at BP coming up (13) Peripheral neuropathy: holding gabapentin in setting of FERNANDA, sepsis, etc resume once more stable (14) Hyperlipidemia: holding statin due to daptomycin use (15) Morbid obesity with BMI of 50.0-59.9, adult: BMI 59 (16) DVT prophylaxis: SCDs chemical means contraindicated in setting of gross hematuria Subjective patient still with a lot of pain, mostly abdominal from distension she feels like her abdomen is tight minimal flatus, no BM in past 24 hours called [facility] Aaron, received final urine culture results, E faecalis, de la rosa se nsitive, no growth on blood cultures reviewed labs, WBC down to 16k, Hb stable at 10.5, Cr and electrolytes stable patient breathing well, says that she uses her CPAP HS with 4L of oxygen, this is chronic appreciate notes from urology, reviewed the chart today since admission Review of Systems Review of Systems: All systems reviewed & are unremarkable except as noted in HPI & below Constitutional: + fatigue and + weakness; no fever Respiratory: no cough and no dyspnea Cardiovascular: no chest pain Gastrointestinal: + abdominal pain, + bloating, + nausea and + constipation; no vomiting and no diarrhea/loose stools Genitourinary: + hematuria and + flank pain (right) Physical Exam Constitutional: WD/WN, vitals as above + obese Eyes: PERRL, conjunctivae normal, anicteric sclerae ENMT: external ear and nose normal, oropharynx normal Neck: trachea midline, no thyromegaly Respiratory: normal respiratory effort, lungs clear to auscultation (decreased breath sounds in bases) Cardiovascular: RRR, no murmur, no edema Gastrointestinal (Abdomen): Inspection/Auscultation: + abdomen distended and + hypoactive bowel sounds; no visible herniation Percussion/Palpation: + abdomen tender and + tympanic to percussion; no guarding, abdomen not rigid and + abdomen not soft (slightly tense from distension) Musculoskeletal: no cyanosis or clubbing, extremities motor strength 5/5 Skin: no rashes, warm and dry Neurologic: patellar DTR's 2+ bilat, sensation intact and PERRL, EOMI, accommodation nl, no face palsy, no dysarthria Psychiatric: A+Ox3, euthymic affect Lymphatic: no cervical or axillary lymphadenopathy Results & Data Vital Signs (Past 12 Hours) Vital Signs Temp Pulse Pulse Resp BP Pulse Ox 11/19/18 07:56 36.8 C 70 18 120/69 92 11/19/18 03:12 37.3 C 77 19 146/60 H 93 11/18/18 23:28 36.7 C 72 19 114/62 92 11/18/18 23:16 77 16 93 Laboratory Results Laboratory Results - last 24 hr 11/19/18 11/19/18 11/19/18 05:44 05:44 06:10 WBC 16.96 H RBC 3.33 L Hgb 10.6 L Hct 32.0 L MCV 96.1 MCH 31.8 MCHC 33.1 RDW Std Deviation 49.8 H RDW Coeff of Maria Del Carmen 14.3 Plt Count 257 MPV 9.6 Immature Gran % (Auto) 0.4 Neut % (Auto) 79.8 Lymph % (Auto) 10.7 [place] % (Auto) 6.8 Eos % (Auto) 2.2 Baso % (Auto) 0.1 Immature Gran # (Auto) 0.06 H Neut # (Auto) 13.54 H Lymph # (Auto) 1.82 [place] # (Auto) 1.15 H Eos # (Auto) 0.37 Baso # (Auto) 0.02 Sodium 135 L Potassium 3.6 Chloride 98 Carbon Dioxide 30 Anion Gap 7.0 BUN 21 H Creatinine 1.29 H Est Cr Clr Drug Dosing 76.0 Est GFR ( Amer) 52.9 Est GFR (Non-Af Amer) 45.6 BUN/Creatinine Ratio 16.6 Glucose 115 H POC Glucose Calcium 8.5 Magnesium 2.1 Herpes Virus Source Pending HSV I DNA PCR Pending HSV II DNA PCR Pending 11/19/18 07:38 WBC RBC Hgb Hct MCV MCH MCHC RDW Std Deviation RDW Coeff of Maria Del Carmen Plt Count MPV Immature Gran % (Auto) Neut % (Auto) Lymph % (Auto) [place] % (Auto) Eos % (Auto) Baso % (Auto) Immature Gran # (Auto) Neut # (Auto) Lymph # (Auto) [place] # (Auto) Eos # (Auto) Baso # (Auto) Sodium Potassium Chloride Carbon Dioxide Anion Gap BUN Creatinine Est Cr Clr Drug Dosing Est GFR ( Amer) Est GFR (Non-Af Amer) BUN/Creatinine Ratio Glucose POC Glucose 144 H Calcium Magnesium Herpes Virus Source HSV I DNA PCR HSV II DNA PCR Microbiology 11/17/18 20:21 Blood Aerobic Blood Culture - Preliminary No growth in Aerobic bottle after 24 hours. 11/17/18 20:21 Blood Anaerobic Blood Culture - Preliminary No growth in Anaerobic bottle after 24 hours. 11/17/18 20:35 Blood Aerobic Blood Culture - Preliminary No growth in Aerobic bottle after 24 hours. 11/17/18 20:35 Blood Anaerobic Blood Culture - Preliminary No growth in Anaerobic bottle after 24 hours. 11/17/18 20:31 Urine,Indwelling Cath Urine Culture - Preliminary Streptococcus species Medications Administered Current Inpatient Medications Acetaminophen (Tylenol) 650 mg PO Q4H PRN PRN Reason: Pain or Fever Stop: 12/17/18 20:02 Albuterol (Ventolin Hfa) 2 puffs INH Q6H PRN PRN Reason: sob Stop: 12/17/18 20:02 Atorvastatin Calcium (Lipitor) 20 mg PO QAM [facility] Stop: 12/17/18 20:59 Last Admin: 11/18/18 07:55 Dose: 20 mg Documented by: Bisacodyl (Dulcolax) 5 mg PO DAILY [facility] Stop: 12/18/18 11:59 Last Admin: 11/19/18 09:44 Dose: 5 mg Documented by: Docusate Sodium (Colace) 100 mg PO BID [facility] Stop: 12/18/18 08:59 Last Admin: 11/19/18 09:45 Dose: 100 mg Documented by: Hydromorphone HCl (Dilaudid Farm Operations Manager 25 Mg/50 Ml) 25 mg IV PRN PRN; Protocol PRN Reason: Pain Stop: 12/01/18 21:16 Last Admin: 11/19/18 04:11 Dose: 25 mg Documented by: Bumetanide 0.5 mg/ Syringe 2 mls @ 4 mls/min IV DAILY@0900,1700 [facility] Stop: 12/18/18 08:59 Last Admin: 11/18/18 07:58 Dose: 4 mls/min Documented by: Sodium Chloride (Nss 1000ml) 1,000 mls @ 15 mls/hr IV .Q24H [facility] Stop: 12/01/18 21:18 Last Admin: 11/18/18 23:22 Dose: 15 mls/hr Documented by: Cefepime HCl 2,000 mg/ Syringe 20 mls @ 5.5 mls/min IV Q12H [facility]; Protocol Stop: 11/20/18 00:00 Last Admin: 11/19/18 00:18 Dose: 5.5 mls/min Documented by: Metronidazole (Flagyl) 500 mg in 100 mls @ 100 mls/hr IV Q8H [facility] Stop: 11/19/18 22:59 Last Admin: 11/19/18 05:45 Dose: 100 mls/hr Documented by: Daptomycin 625 mg/ Syringe 12.5 mls @ 0 mls/min IV Q24H [facility]; Protocol Stop: 11/28/18 17:59 Last Admin: 11/18/18 18:29 Dose: 6.25 mls/min Documented by: Lactobacillus Acidophilus (Floranex) 4 tab PO DAILY [facility] Stop: 12/18/18 08:59 Last Admin: 11/19/18 09:45 Dose: 4 tab Documented by: Levothyroxine Sodium (Synthroid) 75 mcg PO DAILYBB [facility] Stop: 12/18/18 06:29 Last Admin: 11/19/18 09:49 Dose: 75 mcg Documented by: Loratadine (Claritin) 10 mg PO QAM [facility] Stop: 12/18/18 08:59 Last Admin: 11/19/18 09:45 Dose: 10 mg Documented by: Miscellaneous (Incremental Farm Operations Manager Titration) 1 ea N/A QS [facility]; Protocol Stop: 12/18/18 00:00 Last Admin: 11/19/18 08:57 Dose: Not Given Documented by: Miscellaneous (Lock-Out Farm Operations Manager Titration) 1 ea N/A QS [facility] Stop: 12/02/18 00:00 Last Admin: 11/19/18 08:58 Dose: Not Given Documented by: Naloxone HCl (Narcan) 0.1 mg IV Q5M PRN; Protocol PRN Reason: Oversedation/Resp Depression Stop: 12/01/18 21:16 Polyethylene Glycol (Miralax Powder Packet) 17 gm PO BID [facility] Stop: 12/18/18 11:59 Last Admin: 11/19/18 09:46 Dose: 17 gm Documented by: Polyethylene Glycol/Electrolytes (Golytely) 1 - 2 dose PO DAILY PRN PRN Reason: constipation Stop: 12/17/18 22:13 Fluticasone/Salmeterol (Advair Diskus 250/50) 1 puffs INH BID PRN PRN Reason: sob Stop: 12/17/18 20:02 Valacyclovir HCl (Valtrex) 1,000 mg PO BID [facility] Stop: 11/26/18 08:59 Last Admin: 11/19/18 09:46 Dose: 1,000 mg Documented by: Zolpidem Tartrate (Ambien) 5 mg PO HS PRN PRN Reason: Sleep Stop: 12/17/18 20:02 PG Care Time/CCT Total # of Minutes Spent Total Time Spent with Patient: Total time spent is greater than 50% in coordination of care (as documented) at patient's floor/unit and/or counseling patient: (1) Hematuria Hematuria type: gross Qualified Code(s): R31.0 - Gross hematuria (2) Hyperlipidemia Hyperlipidemia type: mixed hyperlipidemia Qualified Code(s): E78.2 - Mixed hyperlipidemia (3) Peripheral neuropathy Peripheral neuropathy type: polyneuropathy, unspecified Qualified Code(s): G62.9 - Polyneuropathy, unspecified (4) Sepsis Sepsis acute organ dysfunction status: unspecified Sepsis type: Streptococcus, other Qualified Code(s): A40.8 - Other streptococcal sepsis (5) Clear cell carcinoma of kidney Laterality: right Qualified Code(s): C64.1 - Malignant neoplasm of right kidney, except renal pelvis (6) Hypertension Hypertension type: essential hypertension Qualified Code(s): I10 - Essential (primary) hypertension (7) Asthma Asthma complication type: unspecified Asthma persistence: unspecified Asthma severity: unspecified severity Qualified Code(s): J45.909 - Unspecified asthma, uncomplicated
--- NOTE | 2018-11-19 13:27 | Urology Progress Note ---
Date of Service November 19, 2018 Assessment & Plan (1) H/O partial nephrectomy: (2) Abdominal pain: A/P 58 yo female POD#12 s/p R robotic partial nephrectomy, HD#2 admission for intractable R flank pain, bleed vs. infection vs both. Positive urinary cultures pending sensitivities. Despite the patient's broad- spectrum antibiotics she has a low-grade temperature today. Will await final cultures to ensure appropriate antibiotic coverage. However, if she continues to remain febrile will need to proceed with repeat CT imaging to ensure a lack of a developing abscess. Ongoing gross hematuria remains relatively stable and not associated with any need for transfusion or drop in hemoglobin. Would increase activity in this patient who is at risk for pneumonia, ileus and DVT seen her morbid obesity. Continue to monitor hemoglobin and transfuse as needed. We will follow. (3) Clear cell carcinoma of kidney: pT1a Nx grade 2 clear cell carcinoma of the kidney status post right partial nephrectomy. Excellent prognosis after margin negative surgical extirpation. Subjective 58-year-old female postoperative day #12 status post right partial nephrectomy, hospital day #2 status post admission for right flank pain, postoperative UTI and history of respiratory failure. Infectious disease and hospitalist notes reviewed, recent events noted. Patient currently with a low-grade temperature of 37.8, urine culture from our institution is growing out Staphylococcus and final cultures from [facility] remain pending per my understanding. Patient's hemoglobin remained stable approximately 10 and renal function also remained stable with a creatinine of 1.3. Patient is out of bed to chair currently reports she is having chills. She continues to have right flank pain, essentially unchanged and controlled with Dilaudid VIDEO ENGINEER. Dosing has been altered. There is some concern over an ileus and patient remains on clears for now with possible consideration of advancement later today. Horowitz catheter remains bloody but has not clotted off to my understanding. Patient without other new complaints. She notes some bowel movements since yesterday. Review of Systems Constitutional: + fever, + chills and + fatigue Eyes: no diplopia Ear, Nose, Mouth, Throat: no ear trauma Respiratory: no cough and no pain on inspiration Cardiovascular: no chest pain Gastrointestinal: + abdominal pain; no nausea and no vomiting Genitourinary: + urinary frequency and + hematuria Bladder pressure reported Musculoskeletal: + back pain Integumentary: + rash; no acne Neurologic: no paralysis Psychiatric: no hopelessness Endocrine: + fatigue; no flushing Allergy / Immunological: no tongue swelling Physical Exam Constitutional: + morbidly obese; no acute distress (Improved respiratory distress) Eyes: eyes not dysmorphic ENMT: Ears: no external ear abnormality Neck: trachea midline; no anterior neck swelling Respiratory: does not use accessory muscles and no audible wheezes Cardiovascular: Vessels: radial pulses present Gastrointestinal (Abdomen): Inspection/Auscultation: + abdomen distended (Difficult to assess due to obesity) Percussion/Palpation: + abdomen tender (Mild) and abdomen soft Incisions clean dry and intact without cellulitis, partially open incision stable Musculoskeletal: Head/Neck/Chest: normocephalic Skin: normal turgor Neurologic: awake; not obtunded Psychiatric: Orientation: alert and oriented x 3 Lymphatic: no lymphadenopathy Results & Data Vital Signs (Past 12 Hours) Vital Signs Temp Pulse Pulse Pulse Resp BP BP 11/19/18 12:00 37.8 C H 11/19/18 11:07 37.7 C H 77 20 131/66 11/19/18 09:30 70 11/19/18 07:56 36.8 C 70 18 120/69 11/19/18 03:12 37.3 C 77 19 146/60 H Pulse Ox 11/19/18 12:00 11/19/18 11:07 93 11/19/18 09:30 11/19/18 07:56 92 11/19/18 03:12 93 Laboratory Results Laboratory Results - last 48 hr 11/17/18 11/17/18 11/17/18 20:21 20:21 20:21 WBC 23.16 H RBC 3.55 L Hgb 11.2 L Hct 34.1 L MCV 96.1 MCH 31.5 MCHC 32.8 RDW Std Deviation 50.7 H RDW Coeff of Maria Del Carmen 14.5 Plt Count 269 MPV 9.3 Immature Gran % (Auto) 0.4 Neut % (Auto) 84.2 Lymph % (Auto) 8.6 [place] % (Auto) 5.5 Eos % (Auto) 1.2 Baso % (Auto) 0.1 Immature Gran # (Auto) 0.10 H Neut # (Auto) 19.47 H Lymph # (Auto) 2.00 [place] # (Auto) 1.28 H Eos # (Auto) 0.28 Baso # (Auto) 0.03 ABG pH 7.40 ABG pCO2 42 ABG pO2 72 L ABG HCO3 25 H ABG O2 Saturation 91.1 ABG Base Excess -0.1 Kin Test Pos Barometric Pressure 738.7 Oxygen Given 10L Sodium 136 Potassium 3.9 Chloride 100 Carbon Dioxide 32 Anion Gap 4.0 BUN 27 H Creatinine 1.31 H Est Cr Clr Drug Dosing 78.4 Est GFR ( Amer) 51.9 Est GFR (Non-Af Amer) 44.8 BUN/Creatinine Ratio 20.5 H Glucose 112 H POC Glucose Calcium 8.3 L Magnesium Total Bilirubin 1.0 AST 18 ALT 29 Alkaline Phosphatase 78 NT-Pro-B Natriuret Pep 593 Total Protein 6.6 Albumin 2.7 L Globulin 3.9 Albumin/Globulin Ratio 0.7 L Urine Color Urine Appearance Urine pH Ur Specific [place] Urine Protein Urine Glucose (UA) Urine Ketones Urine Blood Urine Nitrite Urine Bilirubin Urine Urobilinogen Ur Leukocyte Esterase Urine RBC Urine WBC Ur Epithelial Cells Urine Bacteria Blood Type Antibody Screen Crossmatch 11/17/18 11/17/18 11/17/18 20:31 22:45 22:45 WBC 22.47 H RBC 3.51 L Hgb 11.2 L Hct 33.6 L MCV 95.7 MCH 31.9 MCHC 33.3 RDW Std Deviation 50.7 H RDW Coeff of Maria Del Carmen 14.6 H Plt Count 280 MPV 9.5 Immature Gran % (Auto) Neut % (Auto) Lymph % (Auto) [place] % (Auto) Eos % (Auto) Baso % (Auto) Immature Gran # (Auto) Neut # (Auto) Lymph # (Auto) [place] # (Auto) Eos # (Auto) Baso # (Auto) ABG pH ABG pCO2 ABG pO2 ABG HCO3 ABG O2 Saturation ABG Base Excess Kin Test Barometric Pressure Oxygen Given Sodium Potassium Chloride Carbon Dioxide Anion Gap BUN Creatinine Est Cr Clr Drug Dosing Est GFR ( Amer) Est GFR (Non-Af Amer) BUN/Creatinine Ratio Glucose POC Glucose Calcium Magnesium Total Bilirubin AST ALT Alkaline Phosphatase NT-Pro-B Natriuret Pep Total Protein Albumin Globulin Albumin/Globulin Ratio Urine Color Brown Urine Appearance Turbid A Urine pH Ur Specific [place] 1.034 Urine Protein Positive H Urine Glucose (UA) Urine Ketones Urine Blood Urine Nitrite Urine Bilirubin Urine Urobilinogen Ur Leukocyte Esterase Urine RBC >30 H Urine WBC 10-30 H Ur Epithelial Cells 0-5 Urine Bacteria 4+ H Blood Type O Positive Antibody Screen NEGATIVE Crossmatch See Detail 11/18/18 11/18/18 11/19/18 03:56 03:56 05:44 WBC 19.02 H 16.96 H RBC 3.33 L 3.33 L Hgb 10.5 L 10.6 L Hct 31.6 L 32.0 L MCV 94.9 96.1 MCH 31.5 31.8 MCHC 33.2 33.1 RDW Std Deviation 50.1 H 49.8 H RDW Coeff of Maria Del Carmen 14.5 14.3 Plt Count 245 257 MPV 9.1 9.6 Immature Gran % (Auto) 0.4 0.4 Neut % (Auto) 81.2 79.8 Lymph % (Auto) 9.2 10.7 [place] % (Auto) 6.9 6.8 Eos % (Auto) 2.2 2.2 Baso % (Auto) 0.1 0.1 Immature Gran # (Auto) 0.08 H 0.06 H Neut # (Auto) 15.45 H 13.54 H Lymph # (Auto) 1.75 1.82 [place] # (Auto) 1.31 H 1.15 H Eos # (Auto) 0.41 0.37 Baso # (Auto) 0.02 0.02 ABG pH ABG pCO2 ABG pO2 ABG HCO3 ABG O2 Saturation ABG Base Excess Kin Test Barometric Pressure Oxygen Given Sodium 136 Potassium 3.9 Chloride 99 Carbon Dioxide 33 H Anion Gap 4.0 BUN 29 H Creatinine 1.43 H Est Cr Clr Drug Dosing 71.8 Est GFR ( Amer) 46.7 Est GFR (Non-Af Amer) 40.3 BUN/Creatinine Ratio 20.2 H Glucose 113 H POC Glucose Calcium 8.1 L Magnesium Total Bilirubin 1.0 AST 14 L ALT 24 Alkaline Phosphatase 72 NT-Pro-B Natriuret Pep 967 H Total Protein 6.5 Albumin 2.6 L Globulin 3.9 Albumin/Globulin Ratio 0.7 L Urine Color Urine Appearance Urine pH Ur Specific [place] Urine Protein Urine Glucose (UA) Urine Ketones Urine Blood Urine Nitrite Urine Bilirubin Urine Urobilinogen Ur Leukocyte Esterase Urine RBC Urine WBC Ur Epithelial Cells Urine Bacteria Blood Type Antibody Screen Crossmatch 11/19/18 11/19/18 05:44 07:38 WBC RBC Hgb Hct MCV MCH MCHC RDW Std Deviation RDW Coeff of Maria Del Carmen Plt Count MPV Immature Gran % (Auto) Neut % (Auto) Lymph % (Auto) [place] % (Auto) Eos % (Auto) Baso % (Auto) Immature Gran # (Auto) Neut # (Auto) Lymph # (Auto) [place] # (Auto) Eos # (Auto) Baso # (Auto) ABG pH ABG pCO2 ABG pO2 ABG HCO3 ABG O2 Saturation ABG Base Excess Kin Test Barometric Pressure Oxygen Given Sodium 135 L Potassium 3.6 Chloride 98 Carbon Dioxide 30 Anion Gap 7.0 BUN 21 H Creatinine 1.29 H Est Cr Clr Drug Dosing 76.0 Est GFR ( Amer) 52.9 Est GFR (Non-Af Amer) 45.6 BUN/Creatinine Ratio 16.6 Glucose 115 H POC Glucose 144 H Calcium 8.5 Magnesium 2.1 Total Bilirubin AST ALT Alkaline Phosphatase NT-Pro-B Natriuret Pep Total Protein Albumin Globulin Albumin/Globulin Ratio Urine Color Urine Appearance Urine pH Ur Specific [place] Urine Protein Urine Glucose (UA) Urine Ketones Urine Blood Urine Nitrite Urine Bilirubin Urine Urobilinogen Ur Leukocyte Esterase Urine RBC Urine WBC Ur Epithelial Cells Urine Bacteria Blood Type Antibody Screen Crossmatch PG Care Time/CCT Total # of Minutes Spent Total Time Spent with Patient: Total time spent is greater than 50% in coordination of care (as documented) at patient's floor/unit and/or counseling patient: (1) Clear cell carcinoma of kidney Laterality: right Qualified Code(s): C64.1 - Malignant neoplasm of right kidney, except renal pelvis
[2018-11-19] MEDS: ONDANSETRON INJ 2 MG/ML 2 ML VIAL IV PRN (14:56)
[2018-11-19] MEDS: DAPTOmycin 625 MG in SYRINGE 0 ML IV SCH (19:57)
[2018-11-19] MEDS: SODIUM CHLORIDE 0.9% 1000ML 1,000 ML IV SCH (22:13)
[2018-11-20] MEDS: CEFEPIME 2,000 MG in SYRINGE 7.5 ML IV SCH (00:30)
[2018-11-20] MEDS: LEVOTHYROXINE SODIUM 75 MCG TABLET PO SCH (05:21)
[2018-11-20 06:32] LABS: Basophils # (auto) 0.02 K/uL (0-0.2); Basophils % (auto) 0.1 %; Eosinophils # (auto) 0.32 K/uL (0-0.5); Eosinophils % (auto) 1.9 %; Hematocrit (blood only) 30.1 % (37-47); Hemoglobin 10.2 g/dL (12.0-16.0); Immature Granulocytes # (auto) 0.06 K/uL (0.00-0.02); Immature Granulocytes % (auto) 0.3 %; Lymphocytes # (auto) 1.35 K/uL (1.2-3.4); Lymphocytes % (auto) 7.9 %; Mean Corpuscular Hgb Conc 33.9 g/dL (32-36); Mean Corpuscular Volume 94.7 fL (80-100); Mean Platelet Volume 9.5 fL (7.4-10.4); Monocytes # (auto) 1.24 K/uL (0.11-0.59); Monocytes % (auto) 7.2 %; Neutrophils % (auto) 82.6 %; Platelet Count 295 K/uL (130-400); RDW Coefficient of Variation 14.2 % (11.5-14.5); Red Blood Count 3.18 M/uL (4.2-5.4); White Blood Count 17.19 K/uL (4.8-10.8)
[2018-11-20] MEDS: DOCUSATE SODIUM 100 MG CAP PO SCH ×2 (07:45→22:22)
[2018-11-20] MEDS: BISACODYL 5 MG TABEC PO SCH (07:45)
[2018-11-20] MEDS: LACTOBACILLUS ACIDOPHILUS (FLORANEX) TAB PO SCH (07:46)
[2018-11-20] MEDS: POLYETHYLENE (MIRALAX) 17 GM PACK PO SCH (07:46)
[2018-11-20] MEDS: LORATADINE 10 MG TAB PO SCH (07:46)
[2018-11-20] MEDS: VALACYCLOVIR HCL 500 MG TABLET PO SCH ×2 (07:47→22:22)
[2018-11-20] MEDS ORDERED: FUROSEMIDE 40 MG in SYRINGE 0 ML IV ONE (09:45)
--- NOTE | 2018-11-20 11:11 | Urology Progress Note ---
Date of Service November 20, 2018 Assessment & Plan (1) Abdominal pain: 58 YO female POD #13 s/p robotic partial nephrectomy, Hospital Day #3 due to flank pain, bleed vs. infection vs. both. Patient appears to be clinically improving. No fevers, labs stable. Pain controlled. Munoz hematuria persisting without clot. Will continue to closely follow. (2) Hematuria: (3) Acute blood loss anemia: (4) Right renal mass: Subjective 58 YO female POD #13 s/p robotic partial nephrectomy, Hospital Day #3 due to flank pain, bleed vs. infection vs. both. Chart is reviewed. H&H stable, Cr stable this morning. Afebrile overnight. Patient reports feeling "a little better" today. Reports that pain is controlled with COMMUNITY DEVELOPMENT TECHNICIAN. Is passing gas, has moved bowels. No chills overnight. No nausea/vomiting. Horowitz not bothersome. Review of Systems Review of Systems: All systems reviewed & are unremarkable except as noted in HPI & below Physical Exam Physical Exam: NAD +obese. Resp effort normal. Abd soft +mild incision tenderness. : Horowitz in place, patent, +munoz urine without significant clot noted. A&Ox3, appropriate affect. Results & Data Vital Signs (Past 12 Hours) Vital Signs Temp Pulse Resp BP Pulse Ox 11/20/18 08:03 36.7 C 81 16 116/76 90 11/20/18 03:20 36.9 C 76 24 108/56 L 93 11/19/18 23:16 37.4 C 74 19 115/54 L 92 (1) Hematuria Hematuria type: gross Qualified Code(s): R31.0 - Gross hematuria
[2018-11-20 13:16] LABS: Basophils # (auto) 0.02 K/uL (0-0.2); Basophils % (auto) 0.1 %; Eosinophils # (auto) 0.21 K/uL (0-0.5); Eosinophils % (auto) 1.2 %; Hematocrit (blood only) 30.5 % (37-47); Hemoglobin 10.2 g/dL (12.0-16.0); Immature Granulocytes # (auto) 0.07 K/uL (0.00-0.02); Immature Granulocytes % (auto) 0.4 %; Lymphocytes # (auto) 1.24 K/uL (1.2-3.4); Lymphocytes % (auto) 7.2 %; Mean Corpuscular Hgb Conc 33.4 g/dL (32-36); Mean Corpuscular Volume 93.3 fL (80-100); Mean Platelet Volume 9.6 fL (7.4-10.4); Monocytes # (auto) 1.18 K/uL (0.11-0.59); Monocytes % (auto) 6.8 %; Neutrophils # (auto) 14.51 K/uL (1.4-6.5); Neutrophils % (auto) 84.3 %; Platelet Count 305 K/uL (130-400); RDW Coefficient of Variation 14.2 % (11.5-14.5); RDW Standard Deviation 48.6 fL (36.4-46.3); Red Blood Count 3.27 M/uL (4.2-5.4); White Blood Count 17.23 K/uL (4.8-10.8)
[2018-11-20 13:32] LABS: BUN Creatinine Ratio 12.4 (10-20); Calcium 8.4 mg/dl (8.5-10.1); Creatinine Clr Calc Pharmacy 85.1 ml/min; Est GFR (African American) 59.5; Est GFR (Non-African American) 51.3; Potassium 3.6 mmol/L (3.5-5.1)
--- NOTE | 2018-11-20 13:56 | Hospitalist Progress Note ---
Date of Service November 20, 2018 Assessment & Plan (1) Sepsis: 2nd to complicated UTI. urine culture from [facility] with de la rosa sensitive E faecalis blood cultures from 11/17 with no growth at four days time urine culture here also with E faecalis, de la rosa sensitive blood cultures negative continue Daptomycin, stop Cefepime today (2) Complicated UTI (urinary tract infection): Cx at [facility] and [facility] both with E faecalis treat with Daptomycin for time being ID has been consulted; appreciate their recs. pain better, stop [employer] today (3) Acute kidney injury: in setting of recent right sided partial nephrectomy, complicated UTI, and sepsis. FERNANDA resolved, Cr down to 1.1 today (4) Acute respiratory failure with hypoxia: unclear etiology but breathing has been stable here uses CPAP at night for WENCESLAO resume Lasix today to keep lungs dry stable on 4L currently (5) Acute blood loss anemia: 2nd to gross hematuria. concern of bleeding from operative site in the right kidney. urology following this. if hematuria was to worsen leading to ongoing downward trend of H/H then she would need to be transferred to tertiary care center for IR intervention. Hb is stable at 10.2 today (6) Ileus: x-rays 11/18 with evidence of ileus. clinically also with ileus, distended, hypoactive bowel sounds resolved overnight on 11/19 and again morning of 11/20, several BM soft to loose in caliber feeling much better today, advance diet to regular (7) Clear cell carcinoma of kidney: right - s/p partial nephrectomy at [facility] on 11/07/18. appreciate Dr Medina's consult and recs. per Dr. Medina, margins were clear which indicates a good prognosis (8) Hematuria: either 2nd to UTI and/or bleeding from right kidney operative site. daily CBC. see above. (9) Obstructive sleep apnea on CPAP: cont CPAP need to watch for excessive sedation in setting of [employer] dilaudid use (10) Asthma: no exacerbation at this time cont usual outpatient inhalers etc (11) Hypothyroidism (acquired): cont synthroid 75mcg daily uncertain of last TSH check would check it while here (12) Hypertension: HOLD home meds resume Lasix as BP coming up (13) Peripheral neuropathy: holding gabapentin in setting of FERNANDA, sepsis, etc resume once more stable (14) Hyperlipidemia: holding statin due to daptomycin use (15) Morbid obesity with BMI of 50.0-59.9, adult: BMI 59 (16) DVT prophylaxis: SCDs chemical means contraindicated in setting of gross hematuria PT/OT can transfer off tele today Subjective patient feeling a lot better today, she was able to move her bowels several times far less abdominal discomfort and less distension she is hungry, wants a regular diet no fever or chills reviewed results of culture from urine, again shows sensitive Enterococcus WBC is 17k Cr is down to 1.1, will resume her Lasix and stop fluids patient agrees to therapy, ordered PT/OT Review of Systems Review of Systems: All systems reviewed & are unremarkable except as noted in HPI & below Constitutional: + weakness; no fever Respiratory: + dyspnea on exertion; no cough and no dyspnea Cardiovascular: + edema (chronic); no chest pain Gastrointestinal: no abdominal pain, no nausea, no vomiting, no constipation and no diarrhea/loose stools Genitourinary: + hematuria and + flank pain (right side) Physical Exam Constitutional: WD/WN, vitals as above + obese Eyes: PERRL, conjunctivae normal, anicteric sclerae ENMT: external ear and nose normal, oropharynx normal Neck: trachea midline, no thyromegaly Respiratory: normal respiratory effort, lungs clear to auscultation (decreased breath sounds in bases) Cardiovascular: RRR, no murmur, no edema Gastrointestinal (Abdomen): Inspection/Auscultation: normal bowel sounds; abdomen not distended and no visible herniation Percussion/Palpation: abdomen soft and + tympanic to percussion; abdomen nontender, no guarding and abdomen not rigid Musculoskeletal: no cyanosis or clubbing, extremities motor strength 5/5 Skin: no rashes, warm and dry Neurologic: patellar DTR's 2+ bilat, sensation intact and PERRL, EOMI, accommodation nl, no face palsy, no dysarthria Psychiatric: A+Ox3, euthymic affect Lymphatic: no cervical or axillary lymphadenopathy Results & Data Vital Signs (Past 12 Hours) Vital Signs Temp Pulse Pulse Resp BP Pulse Ox 11/20/18 11:40 36.9 C 81 20 140/73 91 11/20/18 10:22 74 11/20/18 08:03 36.7 C 81 16 116/76 90 11/20/18 03:20 36.9 C 76 24 108/56 L 93 Laboratory Results Laboratory Results - last 24 hr 11/20/18 11/20/18 11/20/18 06:11 13:03 13:03 WBC 17.19 H 17.23 H RBC 3.18 L 3.27 L Hgb 10.2 L 10.2 L Hct 30.1 L 30.5 L MCV 94.7 93.3 MCH 32.1 31.2 MCHC 33.9 33.4 RDW Std Deviation 49.0 H 48.6 H RDW Coeff of Maria Del Carmen 14.2 14.2 Plt Count 295 305 MPV 9.5 9.6 Immature Gran % (Auto) 0.3 0.4 Neut % (Auto) 82.6 84.3 Lymph % (Auto) 7.9 7.2 Mccone % (Auto) 7.2 6.8 Eos % (Auto) 1.9 1.2 Baso % (Auto) 0.1 0.1 Immature Gran # (Auto) 0.06 H 0.07 H Neut # (Auto) 14.20 H 14.51 H Lymph # (Auto) 1.35 1.24 Mccone # (Auto) 1.24 H 1.18 H Eos # (Auto) 0.32 0.21 Baso # (Auto) 0.02 0.02 Sodium 134 L Potassium 3.6 Chloride 99 Carbon Dioxide 31 Anion Gap 4.0 BUN 15 Creatinine 1.17 Est Cr Clr Drug Dosing 85.1 Est GFR ( Amer) 59.5 Est GFR (Non-Af Amer) 51.3 BUN/Creatinine Ratio 12.4 Glucose 135 H Calcium 8.4 L Medications Administered Current Inpatient Medications Acetaminophen (Tylenol) 650 mg PO Q4H PRN PRN Reason: Pain or Fever Stop: 12/17/18 20:02 Albuterol (Ventolin Hfa) 2 puffs INH Q6H PRN PRN Reason: sob Stop: 12/17/18 20:02 Atorvastatin Calcium (Lipitor) 20 mg PO QAM [facility] Stop: 12/17/18 20:59 Last Admin: 11/18/18 07:55 Dose: 20 mg Documented by: Bisacodyl (Dulcolax) 5 mg PO DAILY [facility] Stop: 12/18/18 11:59 Last Admin: 11/20/18 07:45 Dose: Not Given Documented by: Docusate Sodium (Colace) 100 mg PO BID [facility] Stop: 12/18/18 08:59 Last Admin: 11/20/18 07:45 Dose: Not Given Documented by: Hydromorphone HCl (Dilaudid) 0.5 mg IV Q4 PRN PRN Reason: Pain Stop: 12/04/18 10:39 Daptomycin 625 mg/ Syringe 12.5 mls @ 0 mls/min IV Q24H [facility]; Protocol Stop: 11/28/18 17:59 Last Admin: 11/19/18 19:57 Dose: 12.5 mls/min Documented by: Lactobacillus Acidophilus (Floranex) 4 tab PO DAILY STEVE Stop: 12/18/18 08:59 Last Admin: 11/20/18 07:46 Dose: 4 tab Documented by: Levothyroxine Sodium (Synthroid) 75 mcg PO DAILYBB [facility] Stop: 12/18/18 06:29 Last Admin: 11/20/18 05:21 Dose: 75 mcg Documented by: Loratadine (Claritin) 10 mg PO QAM [facility] Stop: 12/18/18 08:59 Last Admin: 11/20/18 07:46 Dose: 10 mg Documented by: Ondansetron HCl (Zofran) 4 mg IV Q4H PRN PRN Reason: Nausea Stop: 12/19/18 14:42 Last Admin: 11/19/18 14:56 Dose: 4 mg Documented by: Polyethylene Glycol (Miralax Powder Packet) 17 gm PO BID [facility] Stop: 12/18/18 11:59 Last Admin: 11/20/18 07:46 Dose: Not Given Documented by: Polyethylene Glycol/Electrolytes (Golytely) 1 - 2 dose PO DAILY PRN PRN Reason: constipation Stop: 12/17/18 22:13 Fluticasone/Salmeterol (Advair Diskus 250/50) 1 puffs INH BID PRN PRN Reason: sob Stop: 12/17/18 20:02 Valacyclovir HCl (Valtrex) 1,000 mg PO BID [facility] Stop: 11/26/18 08:59 Last Admin: 11/20/18 07:47 Dose: 1,000 mg Documented by: Zolpidem Tartrate (Ambien) 5 mg PO HS PRN PRN Reason: Sleep Stop: 12/17/18 20:02 PG Care Time/CCT Total # of Minutes Spent Total Time Spent with Patient: Total time spent is greater than 50% in coordination of care (as documented) at patient's floor/unit and/or counseling patient: (1) Sepsis Sepsis type: Streptococcus, other Sepsis acute organ dysfunction status: unspecified Qualified Code(s): A40.8 - Other streptococcal sepsis (2) Clear cell carcinoma of kidney Laterality: right Qualified Code(s): C64.1 - Malignant neoplasm of right kidney, except renal pelvis (3) Hematuria Hematuria type: gross Qualified Code(s): R31.0 - Gross hematuria (4) Asthma Asthma severity: unspecified severity Asthma persistence: unspecified Asthma complication type: unspecified Qualified Code(s): J45.909 - Unspecified asthma, uncomplicated (5) Hypertension Hypertension type: essential hypertension Qualified Code(s): I10 - Essential (primary) hypertension (6) Peripheral neuropathy Peripheral neuropathy type: polyneuropathy, unspecified Qualified Code(s): G62.9 - Polyneuropathy, unspecified (7) Hyperlipidemia Hyperlipidemia type: mixed hyperlipidemia Qualified Code(s): E78.2 - Mixed hyperlipidemia
[2018-11-20] MEDS: HYDROmorphone INJ 0.5 MG/0.5 ML SYR IV PRN ×2 (14:25→19:07)
--- NOTE | 2018-11-20 14:32 | Infectious Disease Progress Nt ---
Date of Service November 20, 2018 Assessment & Plan (1) Complicated UTI (urinary tract infection): 58-year-old female status post nephrectomy for carcinoma, now with acute onset of right flank pain and hematuria. Agree with urology that bleeding may be causing her current symptoms. However given positive urine culture with it [place] to continue current antibiotics. To continue daptomycin, consider transition to oral antibiotics in the near future if continues to improve. Will follow. (2) Streptococcal infection: Subjective patient feeling a lot better today, she was able to move her bowels several times far less abdominal discomfort and less distension she is hungry, wants a regular diet no fever or chills reviewed results of culture from urine, again shows sensitive Enterococcus WBC is 17k Cr is down to 1.1, will resume her Lasix and stop fluids Review of Systems Review of Systems: All systems reviewed & are unremarkable except as noted in HPI & below Physical Exam Constitutional: WD/WN, vitals as above + acute distress, + ill appearing and + obese Eyes: PERRL, conjunctivae normal, anicteric sclerae ENMT: external ear and nose normal, oropharynx normal Neck: trachea midline, no thyromegaly neck nontender Respiratory: normal respiratory effort, lungs clear to auscultation normal percussion; no respiratory distress Cardiovascular: RRR, no murmur, no edema Heart Sounds: no gallop and no cardiac rub Gastrointestinal (Abdomen): Inspection/Auscultation: abdomen normal to inspection, + abdomen distended and + hyperactive bowel sounds Percussion/Palpation: + abdomen tender (Right flank and right-sided); no hepatosplenomegaly Musculoskeletal: no cyanosis or clubbing, extremities motor strength 5/5 Head/Neck/Chest: normocephalic, head atraumatic and neck supple Skin: no rashes, warm and dry Neurologic: patellar DTR's 2+ bilat, sensation intact moves all extremities and awake Psychiatric: A+Ox3, euthymic affect Lymphatic: no cervical or axillary lymphadenopathy no inguinal lymphadenopathy Results & Data Vital Signs (Past 12 Hours) Vital Signs Temp Pulse Pulse Resp BP Pulse Ox 11/20/18 11:40 36.9 C 81 20 140/73 91 11/20/18 10:22 74 11/20/18 08:03 36.7 C 81 16 116/76 90 11/20/18 03:20 36.9 C 76 24 108/56 L 93 Laboratory Results Short CBC 11/20/18 11/20/18 Range/Units 06:11 13:03 WBC 17.19 H 17.23 H (4.8-10.8) K/uL Hgb 10.2 L 10.2 L (12.0-16.0) g/dL Hct 30.1 L 30.5 L (37-47) % Plt Count 295 305 (130-400) K/uL BMP 11/20/18 13:03 Sodium 134 L Potassium 3.6 Chloride 99 Carbon Dioxide 31 BUN 15 Creatinine 1.17 Glucose 135 H Calcium 8.4 L Diagnostic Findings Microbiology 11/17/18 20:35 Blood Aerobic Blood Culture - Preliminary No growth in Aerobic bottle after 48 hours. 11/17/18 20:35 Blood Anaerobic Blood Culture - Preliminary No growth in Anaerobic bottle after 48 hours. 11/17/18 20:21 Blood Aerobic Blood Culture - Preliminary No growth in Aerobic bottle after 48 hours. 11/17/18 20:21 Blood Anaerobic Blood Culture - Preliminary No growth in Anaerobic bottle after 48 hours. 11/17/18 20:31 Urine,Indwelling Cath Urine Culture - Final Enterococcus faecalis PG Care Time/CCT Total # of Minutes Spent Total Time Spent with Patient: Total time spent is greater than 50% in coordination of care (as documented) at patient's floor/unit and/or counseling patient:
[2018-11-20] MEDS: DAPTOmycin 625 MG in SYRINGE 0 ML IV SCH (19:06)
[2018-11-20] MEDS: ONDANSETRON INJ 2 MG/ML 2 ML VIAL IV PRN (22:13)
[2018-11-21] MEDS: HYDROmorphone INJ 0.5 MG/0.5 ML SYR IV PRN ×3 (03:00→13:30)
[2018-11-21] MEDS: LEVOTHYROXINE SODIUM 75 MCG TABLET PO SCH (06:28)
[2018-11-21 07:06] LABS: Basophils # (auto) 0.02 K/uL (0-0.2); Basophils % (auto) 0.1 %; Eosinophils # (auto) 0.14 K/uL (0-0.5); Eosinophils % (auto) 0.7 %; Hematocrit (blood only) 30.3 % (37-47); Hemoglobin 10.2 g/dL (12.0-16.0); Immature Granulocytes # (auto) 0.12 K/uL (0.00-0.02); Immature Granulocytes % (auto) 0.6 %; Lymphocytes # (auto) 1.72 K/uL (1.2-3.4); Lymphocytes % (auto) 9.1 %; Mean Corpuscular Hgb Conc 33.7 g/dL (32-36); Mean Corpuscular Volume 94.4 fL (80-100); Mean Platelet Volume 9.4 fL (7.4-10.4); Monocytes # (auto) 1.23 K/uL (0.11-0.59); Monocytes % (auto) 6.5 %; Neutrophils # (auto) 15.71 K/uL (1.4-6.5); Platelet Count 355 K/uL (130-400); RDW Coefficient of Variation 14.2 % (11.5-14.5); RDW Standard Deviation 49.5 fL (36.4-46.3); Red Blood Count 3.21 M/uL (4.2-5.4); White Blood Count 18.94 K/uL (4.8-10.8)
[2018-11-21 07:38] LABS: BUN Creatinine Ratio 16.4 (10-20); Calcium 8.8 mg/dl (8.5-10.1); Creatinine Clr Calc Pharmacy 97.6 ml/min; Est GFR (African American) 70.2; Est GFR (Non-African American) 60.6; Potassium 3.5 mmol/L (3.5-5.1)
[2018-11-21] MEDS: SUCRALFATE 1 GM/10 ML UDC PO PRN (07:41)
[2018-11-21] MEDS: ONDANSETRON INJ 2 MG/ML 2 ML VIAL IV PRN ×3 (08:03→20:56)
[2018-11-21] MEDS: LORATADINE 10 MG TAB PO SCH (08:46)
[2018-11-21] MEDS: DOCUSATE SODIUM 100 MG CAP PO SCH ×2 (08:47→21:35)
[2018-11-21] MEDS: BISACODYL 5 MG TABEC PO SCH (08:47)
[2018-11-21] MEDS: VALACYCLOVIR HCL 500 MG TABLET PO SCH ×2 (08:48→21:35)
[2018-11-21] MEDS: LACTOBACILLUS ACIDOPHILUS (FLORANEX) TAB PO SCH (08:48)
[2018-11-21] MEDS: FUROSEMIDE 40 MG TAB PO SCH ×2 (08:54→17:30)
[2018-11-21] MEDS: ATORVASTATIN 20 MG TAB PO SCH (09:08)
--- NOTE | 2018-11-21 09:23 | Urology Progress Note ---
Date of Service November 21, 2018 Assessment & Plan (1) Abdominal pain: 58 YO female POD #14 s/p robotic partial nephrectomy, Hospital Day #4 due to flank pain, bleed vs. infection vs. both. No fevers, labs stable. Pain controlled. Hematuria has greatly improved from yesterday. Will continue to follow. (2) Hematuria: (3) Right renal mass: Subjective 58 YO female POD #14 s/p robotic partial nephrectomy, Hospital Day #4 due to flank pain, bleed vs. infection vs. both. Reports some nausea this AM. Pain is controlled. Horowitz not painful or bothersome. Overall feeling "okay." Review of Systems Review of Systems: Per HPI. Physical Exam Physical Exam: NAD. Resp effort normal +O2 via NC. Abd soft, nontender. : Horowitz in place, patent, draining light pink urine with occasional small clot. A&Ox3, appropriate affect. Results & Data Vital Signs (Past 12 Hours) Vital Signs Temp Pulse Pulse Pulse Resp BP BP 11/21/18 08:05 36.7 C 74 22 118/74 11/21/18 04:15 37 C 117 H 20 164/99 H 11/20/18 22:55 37 C 76 18 151/73 H 11/20/18 21:48 82 16 Pulse Ox 11/21/18 08:05 92 11/21/18 04:15 99 11/20/18 22:55 91 11/20/18 21:48 92 (1) Hematuria Hematuria type: gross Qualified Code(s): R31.0 - Gross hematuria
[2018-11-21] MEDS ORDERED: CALCIUM CARBONATE 500 MG CHEWABLE TAB PO PRN (11:28)
[2018-11-21] MEDS: PANTOprazole 40 MG TAB PO SCH (12:45)
[2018-11-21] MEDS ORDERED: IOVERSOL 100ml IV PRN (16:13)
--- NOTE | 2018-11-21 16:42 | CT Scan Report ---
CT abd pelvis IV con only CLINICAL HISTORY: 58 years-old Female presenting with Fever, vomiting, ileus, UTI, s/p partial right nephrectomy. TECHNIQUE: Multidetector CT of the abdomen and pelvis was performed after the administration of intra venous contrast. IV contrast: 120 mL of Optiray 320. One or more dose lowering techniques were used c onsistent with the principles of ALARA (as low as reasonably achievable), including automatic exposur e control, mA or kV adjustment to individual patient size, and/or use of iterative reconstruction. COMPARISON: Outside CT of abdomen and pelvis from 11/17/2018. CT DOSE (mGy.cm): The estimated cumulative dose is 2305.18 mGy.cm. FINDINGS: Pig Sticker topogram: Unremarkable. Lung bases: Normal heart size. Small right pleural effusion, new from prior. Extensive bibasilar atel ectasis greater on the right, in part passive atelectasis with pleural effusion. Atelectasis has incr eased from prior. Mosaic attenuation. Liver: Significantly increased size of the complex fluid collection in the gallbladder fossa now josee uring 8.7 cm in diameter. Previously this was a laminar in morphology. This appears subcapsular in lo cation. Normal morphology of the liver apart from this. No focal lesion. Patent hepatic vasculature. Biliary: No intrahepatic or extrahepatic biliary ductal dilatation. Gallbladder surgically absent. A rounded density is again noted in the gallbladder fossa measuring 3.4 cm. This is concerning for a re tained/dropped gallstone. Inflammatory change in the gallbladder fossa is new from prior. No patholog ic distention of the cystic duct is apparent. Pancreas: Moderate parenchymal atrophy. Spleen: Normal. Adrenal glands: Indeterminate 2.5 cm left adrenal nodule, statistically most likely to represent a be nign adenoma. Smaller nodule in the right adrenal gland measuring 2.1 cm, likely also an adenoma thou gh indeterminate. Kidneys and ureters: Significant perinephric fluid and inflammatory change along the lateral aspect o f the right kidney as on prior exam. There is also small amount of fluid in the right anterior parare nal space. The density of the fluid suggests the products or other complex fluid. Enhancement of the right kidney is relatively preserved though there is cortical thinning in the interpolar region, evid ence of partial nephrectomy. No nephrolithiasis. Mild right pelvocaliectasis without convincing evide nce of hydronephrosis. The degree of dilatation is unchanged from prior exam. Ureters nondistended. Bladder: Decompressed with a Horowitz catheter. Pelvic organs: Globular appearance of the uterine fundus suggest underlying fibroid. Ovaries normal. Bowel: The appendix is not identified. No bowel obstruction. The stomach is mildly distended with gas and fluid. Mild fluid and fat infiltration in the periduodenal region along the descending portion. No evidence of bowel wall thickening of this portion of the duodenum. Peritoneal cavity: Trace perihepatic fluid. No intraperitoneal gas. Retroperitoneal fluid in the righ t anterior pararenal space. Lymph nodes: No enlarged lymph nodes in the abdomen or pelvis. Vasculature: Atherosclerosis of the normal caliber abdominal aorta. IVC patent. Abdominal wall: Much of the superficial subcutaneous fat of the abdominal wall is excluded from the f [id number]. The muscular portion of the abdominal wall is largely included in the [id number] and is grossly normal. Musculoskeletal: Normal. IMPRESSION: 1. Interval development of a 8.7 cm subcapsular collection in the gallbladder fossa. Differential co nsiderations include abscess, hematoma, or bile leak. Presumably there has been no recent biliary kimberli yessica, which given the history of fever, would favor this collection to be an abscess. Surgical consul tation is recommended. 2. Postsurgical changes of partial right nephrectomy. Perinephric hematoma as on prior exam. Sterili ty of these hematoma cannot be confirmed, although the lack of change since the prior exam may favor sterility. 3. Findings suggest a dropped gallstone. This is unchanged from prior CT. 4. Fibroid uterus. 5. Interval development of a small right pleural effusion with increased bibasilar atelectasis. The report will be called/faxed according to standard departmental protocol. Electronically signed by: Sorin Muir M.D. 11/21/2018 4:41 PM
[2018-11-21] MEDS ORDERED: HYDROmorphone INJ 1 MG/ML SYRINGE IV STA (16:54)
[2018-11-21] MEDS ORDERED: PROMETHAZINE HCL 25 MG in SODIUM CHLORIDE 0.9% 50 ML IV STA (16:59)
--- NOTE | 2018-11-21 17:22 | Hospitalist Progress Note ---
Date of Service November 21, 2018 Assessment & Plan (1) Sepsis: 2nd to complicated UTI. urine culture from [facility] with de la rosa sensitive E faecalis blood cultures from 11/17 with no growth at four days time urine culture here also with E faecalis, de la rosa sensitive blood cultures negative continue Daptomycin, stopped Cefepime 11/20 CT 11/21 with 8cm abscess in gall bladder fossa, no recent gall bladder surgery add back gram negative and anaerobe coverage urology plans to assess with further imaging tomorrow to see if this fluid collection consistent with urine source (2) Complicated UTI (urinary tract infection): Cx at [facility] and [facility] both with E faecalis treat with Daptomycin for time being, add Zosyn for GN and anaerobe coverage ID has been consulted; appreciate their recs. pain control with Dilaudid 1mg IV q4 PRN (3) Acute kidney injury: in setting of recent right sided partial nephrectomy, complicated UTI, and sepsis. FERNANDA resolved, Cr down to 1.0 today (4) Acute respiratory failure with hypoxia: unclear etiology but breathing has been stable here uses CPAP at night for WENCESLAO resumed Lasix yesterday, will hold this evening with plans for NPO status stable on 4L currently (5) Acute blood loss anemia: 2nd to gross hematuria. concern of bleeding from operative site in the right kidney. urology following this. if hematuria was to worsen leading to ongoing downward trend of H/H then she would need to be transferred to tertiary care center for IR intervention. Hb is stable at 10.2 again today (6) Ileus: x-rays 11/18 with evidence of ileus. clinically also with ileus, distended, hypoactive bowel sounds resolved overnight on 11/19 and again morning of 11/20, several BM soft to loose in caliber had another stool on 11/21 with good bowel sounds nausea and vomiting today, likely due to abscess NPO after midnight, allow ice chips (7) Clear cell carcinoma of kidney: right - s/p partial nephrectomy at [facility] on 11/07/18. appreciate Dr Medina's consult and recs. per Dr. Medina, margins were clear which indicates a good prognosis (8) Hematuria: either 2nd to UTI and/or bleeding from right kidney operative site. daily CBC. urine clearing up each day (9) Obstructive sleep apnea on CPAP: cont CPAP need to watch for excessive sedation in setting of [employer] dilaudid use (10) Asthma: no exacerbation at this time cont usual outpatient inhalers etc (11) Hypothyroidism (acquired): cont synthroid 75mcg daily uncertain of last TSH check would check it while here (12) Hypertension: HOLD home meds resume Lasix as BP coming up (13) Peripheral neuropathy: holding gabapentin in setting of FERNANDA, sepsis, etc resume once more stable (14) Hyperlipidemia: holding statin due to daptomycin use (15) Morbid obesity with BMI of 50.0-59.9, adult: BMI 59 (16) DVT prophylaxis: SCDs chemical means contraindicated in setting of gross hematuria PT/OT can transfer off tele today Subjective patient with increased nausea and some vomiting today still with right flank pain radiating to her bladder urine clearing up more, just pink and no clots WBC trending up to 18k from 17k despite appropriate antibiotics she was able to move her bowels this morning abdomen still feels distended no dyspnea obtained CT abdomen/pelvis with IV contrast due to clinical status and WBC going up CT showed 8 cm abscess in gall bladder fossa d/w urology, plan to get further imaging tomorrow to determine if this is from blood or urine will likely need to go to tertiary care for drainage but that depends on further imaging tomorrow Review of Systems Review of Systems: All systems reviewed & are unremarkable except as noted in HPI & below Constitutional: + body aches, + fatigue and + weakness; no fever, no chills and no sweats Gastrointestinal: + abdominal pain, + nausea and + vomiting; no constipation, no diarrhea/loose stools, no blood in stools and no melena Genitourinary: + hematuria and + flank pain (right side) Physical Exam Constitutional: WD/WN, vitals as above + obese and + diaphoretic; + uncomfortable Eyes: PERRL, conjunctivae normal, anicteric sclerae ENMT: external ear and nose normal, oropharynx normal Neck: trachea midline, no thyromegaly Respiratory: normal respiratory effort, lungs clear to auscultation (decreased breath sounds in bases) Cardiovascular: RRR, no murmur, no edema Gastrointestinal (Abdomen): Inspection/Auscultation: normal bowel sounds; abdomen not distended and no visible herniation Percussion/Palpation: abdomen soft and + tympanic to percussion; abdomen nontender, no guarding and abdomen not rigid Musculoskeletal: no cyanosis or clubbing, extremities motor strength 5/5 Skin: no rashes, warm and dry Neurologic: patellar DTR's 2+ bilat, sensation intact and PERRL, EOMI, accommodation nl, no face palsy, no dysarthria Psychiatric: A+Ox3, euthymic affect Lymphatic: no cervical or axillary lymphadenopathy Results & Data Vital Signs (Past 12 Hours) Vital Signs Temp Pulse Resp BP BP Pulse Ox Pulse Ox 11/21/18 14:58 36.8 C 77 19 123/78 96 11/21/18 14:04 36.6 C 76 20 118/74 93 11/21/18 11:06 90 11/21/18 08:05 36.7 C 74 22 118/74 92 Laboratory Results Laboratory Results - last 24 hr 11/17/18 11/21/18 11/21/18 22:45 06:36 06:36 WBC 18.94 H RBC 3.21 L Hgb 10.2 L Hct 30.3 L MCV 94.4 MCH 31.8 MCHC 33.7 RDW Std Deviation 49.5 H RDW Coeff of Maria Del Carmen 14.2 Plt Count 355 MPV 9.4 Immature Gran % (Auto) 0.6 Neut % (Auto) 83.0 Lymph % (Auto) 9.1 Kent % (Auto) 6.5 Eos % (Auto) 0.7 Baso % (Auto) 0.1 Immature Gran # (Auto) 0.12 H Neut # (Auto) 15.71 H Lymph # (Auto) 1.72 Kent # (Auto) 1.23 H Eos # (Auto) 0.14 Baso # (Auto) 0.02 Sodium 136 Potassium 3.5 Chloride 100 Carbon Dioxide 30 Anion Gap 6.0 BUN 17 Creatinine 1.02 Est Cr Clr Drug Dosing 97.6 Est GFR ( Amer) 70.2 Est GFR (Non-Af Amer) 60.6 BUN/Creatinine Ratio 16.4 Glucose 115 H Calcium 8.8 Crossmatch See Detail Diagnostic Findings CT ABDOMEN/PELVIS IMPRESSION: 1. Interval development of a 8.7 cm subcapsular collection in the gallbladder fossa. Differential considerations include abscess, hematoma, or bile leak. Presumably there has been no recent biliary surgery, which given the history of fever, would favor this collection to be an abscess. Surgical consultation is recommended. 2. Postsurgical changes of partial right nephrectomy. Perinephric hematoma as on prior exam. Sterility of these hematoma cannot be confirmed, although the lack of change since the prior exam may favor sterility. 3. Findings suggest a dropped gallstone. This is unchanged from prior CT. 4. Fibroid uterus. 5. Interval development of a small right pleural effusion with increased bibasilar atelectasis. Medications Administered Current Inpatient Medications Acetaminophen (Tylenol) 650 mg PO Q4H PRN PRN Reason: Pain or Fever Stop: 12/17/18 20:02 Albuterol (Ventolin Hfa) 2 puffs INH Q6H PRN PRN Reason: sob Stop: 12/17/18 20:02 Atorvastatin Calcium (Lipitor) 20 mg PO QAM STEVE Stop: 12/17/18 20:59 Last Admin: 11/21/18 09:08 Dose: 20 mg Documented by: Bisacodyl (Dulcolax) 5 mg PO DAILY STEVE Stop: 12/18/18 11:59 Last Admin: 11/21/18 08:47 Dose: Not Given Documented by: Calcium Carbonate (Tums) 500 mg PO Q6 PRN PRN Reason: Indigestion Stop: 12/21/18 11:27 Docusate Sodium (Colace) 100 mg PO BID STEVE Stop: 12/18/18 08:59 Last Admin: 11/21/18 08:47 Dose: 100 mg Documented by: Furosemide (Lasix) 40 mg PO BID17 [facility] Stop: 12/21/18 08:59 Last Admin: 11/21/18 08:54 Dose: 40 mg Documented by: Hydromorphone HCl (Dilaudid) 1 mg IV Q4 PRN PRN Reason: Pain Stop: 12/05/18 16:57 Daptomycin 625 mg/ Syringe 12.5 mls @ 0 mls/min IV Q24H STEVE; Protocol Stop: 11/28/18 17:59 Last Admin: 11/20/18 19:06 Dose: 12.5 mls/min Documented by: Ioversol (Optiray 320 100ml) 120 ml IV ONCE PRN PRN Reason: Interaction Checking Stop: 11/25/18 16:12 Last Admin: 11/21/18 16:13 Dose: 120 ml Documented by: Lactobacillus Acidophilus (Floranex) 4 tab PO DAILY STEVE Stop: 12/18/18 08:59 Last Admin: 11/21/18 08:48 Dose: 4 tab Documented by: Levothyroxine Sodium (Synthroid) 75 mcg PO DAILYBB [facility] Stop: 12/18/18 06:29 Last Admin: 11/21/18 06:28 Dose: 75 mcg Documented by: Loratadine (Claritin) [facility] [place] Stop: 12/18/18 08:59 Last Admin: 11/21/18 08:46 Dose: 10 mg Documented by: Ondansetron HCl (Zofran) 4 mg IV Q4H PRN PRN Reason: Nausea Stop: 12/19/18 14:42 Last Admin: 11/21/18 14:02 Dose: 4 mg Documented by: Pantoprazole Sodium (Protonix) [facility] [place] Stop: 11/24/18 09:01 Last Admin: 11/21/18 12:45 Dose: 40 mg Documented by: Fluticasone/Salmeterol (Advair Diskus 250/50) 1 puffs INH BID PRN PRN Reason: sob Stop: 12/17/18 20:02 Sucralfate (Carafate) 1 gm PO QID PRN PRN Reason: heart burn Stop: 12/21/18 08:59 Last Admin: 11/21/18 07:41 Dose: 1 gm Documented by: Valacyclovir HCl (Valtrex) 1,000 mg PO BID [facility] Stop: 11/26/18 08:59 Last Admin: 11/21/18 08:48 Dose: 1,000 mg Documented by: Zolpidem Tartrate (Ambien) 5 mg PO HS PRN PRN Reason: Sleep Stop: 12/17/18 20:02 PG Care Time/CCT Total # of Minutes Spent Total Time Spent with Patient: Total time spent is greater than 50% in coordination of care (as documented) at patient's floor/unit and/or counseling patient: (1) Hematuria Hematuria type: gross Qualified Code(s): R31.0 - Gross hematuria (2) Hyperlipidemia Hyperlipidemia type: mixed hyperlipidemia Qualified Code(s): E78.2 - Mixed hyperlipidemia (3) Peripheral neuropathy Peripheral neuropathy type: polyneuropathy, unspecified Qualified Code(s): G62.9 - Polyneuropathy, unspecified (4) Sepsis Sepsis acute organ dysfunction status: unspecified Sepsis type: Streptococcus, other Qualified Code(s): A40.8 - Other streptococcal sepsis (5) Clear cell carcinoma of kidney Laterality: right Qualified Code(s): C64.1 - Malignant neoplasm of right kidney, except renal pelvis (6) Hypertension Hypertension type: essential hypertension Qualified Code(s): I10 - Essential (primary) hypertension (7) Asthma Asthma complication type: unspecified Asthma persistence: unspecified Asthma severity: unspecified severity Qualified Code(s): J45.909 - Unspecified asthma, uncomplicated
[2018-11-21] MEDS: DAPTOmycin 625 MG in SYRINGE 0 ML IV SCH (18:02)
[2018-11-21] MEDS ORDERED: PIPERACILL/TAZOBAC CONSULT ACTIVE PRN (19:33)
[2018-11-21] MEDS ORDERED: PIPERACILLIN/TAZOBACTAM 4.5 GM in DEXTROSE 5% 100 ML IV ONE (19:45)
[2018-11-21] MEDS: HYDROmorphone INJ 1 MG/ML SYRINGE IV PRN (21:04)
[2018-11-22] MEDS: PIPERACILLIN/TAZOBACTAM 4.5 GM in DEXTROSE 5% 100 ML IV SCH ×3 (00:15→15:14)
[2018-11-22] MEDS: ONDANSETRON INJ 2 MG/ML 2 ML VIAL IV PRN ×3 (01:52→12:19)
[2018-11-22] MEDS: HYDROmorphone INJ 1 MG/ML SYRINGE IV PRN ×4 (01:52→19:29)
[2018-11-22] MEDS: LEVOTHYROXINE SODIUM 75 MCG TABLET PO SCH (06:43)
[2018-11-22 06:49] LABS: Basophils # (auto) 0.03 K/uL (0-0.2); Basophils % (auto) 0.1 %; Eosinophils # (auto) 0.11 K/uL (0-0.5); Eosinophils % (auto) 0.5 %; Hematocrit (blood only) 29.7 % (37-47); Hemoglobin 9.7 g/dL (12.0-16.0); Immature Granulocytes # (auto) 0.13 K/uL (0.00-0.02); Immature Granulocytes % (auto) 0.6 %; Lymphocytes # (auto) 2.08 K/uL (1.2-3.4); Mean Corpuscular Hgb Conc 32.7 g/dL (32-36); Mean Corpuscular Volume 95.5 fL (80-100); Mean Platelet Volume 9.7 fL (7.4-10.4); Monocytes # (auto) 1.51 K/uL (0.11-0.59); Monocytes % (auto) 7.2 %; Neutrophils # (auto) 16.97 K/uL (1.4-6.5); Neutrophils % (auto) 81.6 %; Platelet Count 390 K/uL (130-400); RDW Coefficient of Variation 14.8 % (11.5-14.5); RDW Standard Deviation 51.8 fL (36.4-46.3); Red Blood Count 3.11 M/uL (4.2-5.4); White Blood Count 20.83 K/uL (4.8-10.8)
[2018-11-22] MEDS: SODIUM CHLORIDE 0.9% 1000ML 1,000 ML IV SCH ×2 (07:39→19:45)
[2018-11-22] MEDS: ATORVASTATIN 20 MG TAB PO SCH (09:08)
[2018-11-22] MEDS: PANTOprazole 40 MG TAB PO SCH (09:08)
[2018-11-22] MEDS: LORATADINE 10 MG TAB PO SCH (09:08)
[2018-11-22] MEDS: LACTOBACILLUS ACIDOPHILUS (FLORANEX) TAB PO SCH (09:08)
[2018-11-22] MEDS: VALACYCLOVIR HCL 500 MG TABLET PO SCH ×2 (09:08→20:54)
[2018-11-22] MEDS: DOCUSATE SODIUM 100 MG CAP PO SCH ×2 (09:10→20:54)
[2018-11-22] MEDS: BISACODYL 5 MG TABEC PO SCH (09:10)
[2018-11-22 11:31] LABS: HSV Type 1 DNA Not Detected (Not Detected); HSV Type 1&2 DNA Source Swab; HSV Type 2 DNA Detected (Not Detected)
[2018-11-22 12:20] LABS: Basophils # (auto) 0.03 K/uL (0-0.2); Basophils % (auto) 0.2 %; Eosinophils # (auto) 0.25 K/uL (0-0.5); Eosinophils % (auto) 1.4 %; Hemoglobin 9.2 g/dL (12.0-16.0); Immature Granulocytes # (auto) 0.13 K/uL (0.00-0.02); Immature Granulocytes % (auto) 0.7 %; Lymphocytes # (auto) 2.04 K/uL (1.2-3.4); Lymphocytes % (auto) 11.2 %; Mean Corpuscular Hgb Conc 32.9 g/dL (32-36); Mean Corpuscular Volume 95.9 fL (80-100); Mean Platelet Volume 9.2 fL (7.4-10.4); Monocytes % (auto) 7.1 %; Neutrophils # (auto) 14.47 K/uL (1.4-6.5); Neutrophils % (auto) 79.4 %; Platelet Count 375 K/uL (130-400); RDW Coefficient of Variation 14.8 % (11.5-14.5); RDW Standard Deviation 52.3 fL (36.4-46.3); Red Blood Count 2.92 M/uL (4.2-5.4); White Blood Count 18.22 K/uL (4.8-10.8)
[2018-11-22 12:45] LABS: Albumin Level 2.1 gm/dl (3.4-5.0); BUN Creatinine Ratio 14.1 (10-20); Calcium 8.7 mg/dl (8.5-10.1); Creatinine Clr Calc Pharmacy 85.1 ml/min; Est GFR (African American) 59.5; Est GFR (Non-African American) 51.3; Potassium 3.7 mmol/L (3.5-5.1)
[2018-11-22 12:48] LABS: Albumin Globulin Ratio 0.5 (0.9-2); Bilirubin,Total 0.5 mg/dl (0.2-1); Globulin 4.4 gm/dl (2.5-4.0); Total Protein 6.6 gm/dl (6.4-8.2)
--- NOTE | 2018-11-22 14:28 | Infectious Disease Progress Nt ---
Date of Service November 22, 2018 Assessment & Plan (1) Complicated UTI (urinary tract infection): 58-year-old female status post nephrectomy for carcinoma, now with acute onset of right flank pain and hematuria. Agree with urology that bleeding may be causing her current symptoms. However given positive urine culture with it [place] to continue current antibiotics. To continue daptomycin, consider transition to oral antibiotics in the near future if continues to improve. monitor GB fossa fluid, maintain IV abx for now. (2) Streptococcal infection: Subjective pt seen in followup, still with abd pain and bloating. per chart [facility] culture grew de la rosa sensitive E. faecailis, she is currently on Dapto and zosyn and tolerating well. ct showing 8.7cm collection in GB fossa also with right pernephric fluid as well. wbc increased to 20 today. She is still having pain, no f/c. no n/v/d, no gu symptoms currently. no cp, sob, cough,ramirez. Review of Systems Review of Systems: All systems reviewed & are unremarkable except as noted in HPI & below Physical Exam Constitutional: WD/WN, vitals as above Eyes: PERRL, conjunctivae normal, anicteric sclerae ENMT: external ear and nose normal, oropharynx normal Neck: normal visual inspection Respiratory: normal respiratory effort, lungs clear to auscultation Cardiovascular: RRR, no murmur, no edema Gastrointestinal (Abdomen): Inspection/Auscultation: + abdomen distended; no abdominal edema Percussion/Palpation: + abdomen tender; no guarding, abdomen not rigid and + abdomen not soft Musculoskeletal: no cyanosis or clubbing, extremities motor strength 5/5 Skin: no rashes, warm and dry Psychiatric: A+Ox3, euthymic affect Results & Data Vital Signs (Past 12 Hours) Vital Signs Temp Pulse Resp BP Pulse Ox 11/22/18 07:30 36.8 C 62 20 110/68 97 Laboratory Results Microbiology 11/17/18 20:35 Blood Aerobic Blood Culture - Preliminary No growth in Aerobic bottle after 48 hours. 11/17/18 20:35 Blood Anaerobic Blood Culture - Preliminary No growth in Anaerobic bottle after 48 hours. 11/17/18 20:21 Blood Aerobic Blood Culture - Preliminary No growth in Aerobic bottle after 48 hours. 11/17/18 20:21 Blood Anaerobic Blood Culture - Preliminary No growth in Anaerobic bottle after 48 hours. 11/17/18 20:31 Urine,Indwelling Cath Urine Culture - Final Enterococcus faecalis PG Care Time/CCT Total # of Minutes Spent Total Time Spent with Patient: Total time spent is greater than 50% in coordination of care (as documented) at patient's floor/unit and/or counseling patient:
--- NOTE | 2018-11-22 15:06 | Urology Progress Note ---
Date of Service November 22, 2018 Assessment & Plan (1) Abdominal pain: 58 YO female POD #15 s/p robotic partial nephrectomy, Hospital Day #5 due to flank pain, bleed vs. infection vs. both. Patient feeling about the same today. Awaiting input regarding liver imaging. Labs stable. Afebrile. Will continue to follow. Attending Note: Patient has abnormal area which appears to be along liver near previous area of gallbladder fossa. Unsure what this is related to and is new compared to previous imaging since surgery. Has a history of soft tissue within fossa which was assessed with dedicated MRI and determined to be benign tissues. IT had measured 5.9 cm at time of imaging 9 months ago and again on imaging 5 days ago. GB surgery was in remote past but was difficult per patient with long period of recovery. 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 Perinephric fluid has improved over time. Unsure of liver issue and significance. Unsure if this would be related to her increased nausea and vomiting and pain issues. Did have abnormal increase in liver function tests immediately postop that quickly resolved. Unsure if any relation to this new lesion. No change in H&H. No fevers. Renal function now 1.1. Urine leak or bleed would seem to be unlikely. White count has increased but patient has been afebrile. Very poor mobility. Multiple significant comorbidities. Poor pain tolerance. Severe morbid obesity. General surgery and/or Interventional radiology and/or GI may need to assess to determine liver issue. Now 15 days post op and seems unlikely to be bleed or urine leak. Will continue to monitor. Currently vitals stable. Appears baseline when assessed this AM for multiple chronic issues. (2) Hematuria: (3) Right renal mass: Subjective 58 YO female POD #15 s/p robotic partial nephrectomy, Hospital Day #5 due to flank pain, bleed vs. infection vs. both. Repeat CT scan was completed yesterday due to worsening nausea and white count. Reviewed by Dr. Carroll who has been in contact with hospitalist regarding new liver findings. Patient feels "okay" today. Pain is mostly controlled. Nausea is persisting but slightly improved from yesterday. Hematuria has resolved. Pitts not bothersome. Review of Systems Review of Systems: All systems reviewed & are unremarkable except as noted in HPI & below Physical Exam Physical Exam: NAD. Resp effort normal +O2 via NC. Abd soft. : pitts in place, patent, draining yellow urine. A&Ox3, appropriate affect. Results & Data Vital Signs (Past 12 Hours) Vital Signs Temp Pulse Resp BP BP Pulse Ox 11/22/18 14:54 36.7 C 65 18 113/71 96 11/22/18 07:30 36.8 C 62 20 110/68 97 (1) Hematuria Hematuria type: gross Qualified Code(s): R31.0 - Gross hematuria
[2018-11-22] MEDS: SUCRALFATE 1 GM/10 ML UDC PO PRN (15:32)
[2018-11-22] MEDS: ACETAMINOPHEN 325 MG TAB PO PRN (15:32)
--- NOTE | 2018-11-22 15:34 | Hospitalist Progress Note ---
Date of Service November 22, 2018 Assessment & Plan (1) Sepsis: 2nd to complicated UTI. urine culture from [facility] with de la rosa sensitive E faecalis blood cultures from 11/17 with no growth at five days time urine culture here also with E faecalis, de la rosa sensitive blood cultures negative continue Daptomycin, stopped Cefepime 11/20 added Zosyn on 11/21 to cover for possible abscess CT 11/21 with 8cm abscess in gall bladder fossa, no recent gall bladder surgery add back gram negative and anaerobe coverage (2) Liver hematoma: reviewed with radiologist on 11/22 fluid appears to be blood, small liver laceration can be seen adjacent to blood collection was present on CT from 11/17, it was smaller Hb has dropped by 2gm since admission, BP stable no obvious signs that this is infected at this time certainly at risk for the fluid becoming infected will repeat CT in 2-3 days depending on clinical course no indication that this should be drained at this time (3) Complicated UTI (urinary tract infection): Cx at [facility] and [facility] both with E faecalis treat with Daptomycin for time being, add Zosyn for GN and anaerobe coverage ID has been consulted; appreciate their recs. pain control with Dilaudid 1mg IV q4 PRN (4) Acute kidney injury: in setting of recent right sided partial nephrectomy, complicated UTI, and sepsis. FERNANDA resolved, Cr down to 1.1 today (5) Acute respiratory failure with hypoxia: unclear etiology but breathing has been stable here uses CPAP at night for WENCESLAO resumed Lasix yesterday, will hold this evening with plans for NPO status stable on 4L currently (6) Acute blood loss anemia: 2nd to gross hematuria and also hematoma formation in liver concern of bleeding from operative site in the right kidney. urology following this. Hb down slightly at 9.2 however, only down 2gm for the hospitalization which is 5 days (7) Ileus: x-rays 11/18 with evidence of ileus. clinically also with ileus, distended, hypoactive bowel sounds resolved overnight on 11/19 and again morning of 11/20, several BM soft to loose in caliber had another stool on 11/21 with good bowel sounds still with intermittent nausea liquid diet, toast and crackers okay (8) Clear cell carcinoma of kidney: right - s/p partial nephrectomy at [facility] on 11/07/18. appreciate Dr Medina's consult and recs. per Dr. Medina, margins were clear which indicates a good prognosis (9) Hematuria: either 2nd to UTI and/or bleeding from right kidney operative site. daily CBC. 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 (11) Asthma: no exacerbation at this time cont usual outpatient inhalers etc (12) Hypothyroidism (acquired): cont synthroid 75mcg daily uncertain of last TSH check would check it while here (13) Hypertension: HOLD home meds resume Lasix as BP coming up (14) Peripheral neuropathy: holding gabapentin in setting of FERNANDA, sepsis, etc resume once more stable (15) Hyperlipidemia: holding statin due to daptomycin use (16) Morbid obesity with BMI of 50.0-59.9, adult: BMI 59 (17) DVT prophylaxis: SCDs chemical means contraindicated in setting of gross hematuria PT/OT can transfer off tele today Subjective patient feeling a little better today, still with nausea less abdominal pain today reviewed labs, WBC is down to 18k, Hb is down slightly at 9.2 CMP is normal discussed the case with Dr. Smith from urology, the patient had some lesions in liver prior to surgery h/o cholecystectomy with complications reviewed CT with radiologist, appears to be a hematoma, no signs of infections at this time as there are no gas pockets, fluid is homogenous he was able to identify a small liver laceration that led to bleeding recommends repeating CT in a few days discussed with patient, she agrees with plan Review of Systems Review of Systems: All systems reviewed & are unremarkable except as noted in HPI & below Constitutional: + fatigue and + weakness; no fever Respiratory: no cough Cardiovascular: + edema; no chest pain Gastrointestinal: + abdominal pain, + nausea and + vomiting; no constipation and no diarrhea/loose stools Physical Exam Constitutional: WD/WN, vitals as above + obese and + diaphoretic; + uncomfortable Eyes: PERRL, conjunctivae normal, anicteric sclerae ENMT: external ear and nose normal, oropharynx normal Neck: trachea midline, no thyromegaly Respiratory: normal respiratory effort, lungs clear to auscultation (decreased breath sounds in bases) Cardiovascular: RRR, no murmur, no edema Gastrointestinal (Abdomen): Inspection/Auscultation: normal bowel sounds; abdomen not distended and no visible herniation Percussion/Palpation: abdomen soft and + tympanic to percussion; abdomen nontender, no guarding and abdomen not rigid Musculoskeletal: no cyanosis or clubbing, extremities motor strength 5/5 Skin: no rashes, warm and dry Neurologic: patellar DTR's 2+ bilat, sensation intact and PERRL, EOMI, accommodation nl, no face palsy, no dysarthria Psychiatric: A+Ox3, euthymic affect Lymphatic: no cervical or axillary lymphadenopathy Results & Data Vital Signs (Past 12 Hours) Vital Signs Temp Pulse Resp BP BP Pulse Ox 11/22/18 14:54 36.7 C 65 18 113/71 96 11/22/18 07:30 36.8 C 62 20 110/68 97 Laboratory Results Laboratory Results - last 24 hr 11/19/18 11/22/18 11/22/18 06:10 06:08 12:10 WBC 20.83 H 18.22 H RBC 3.11 L 2.92 L Hgb 9.7 L 9.2 L Hct 29.7 L 28.0 L MCV 95.5 95.9 MCH 31.2 31.5 MCHC 32.7 32.9 RDW Std Deviation 51.8 H 52.3 H RDW Coeff of Maria Del Carmen 14.8 H 14.8 H Plt Count 390 375 MPV 9.7 9.2 Immature Gran % (Auto) 0.6 0.7 Neut % (Auto) 81.6 79.4 Lymph % (Auto) 10.0 11.2 [place] % (Auto) 7.2 7.1 Eos % (Auto) 0.5 1.4 Baso % (Auto) 0.1 0.2 Immature Gran # (Auto) 0.13 H 0.13 H Neut # (Auto) 16.97 H 14.47 H Lymph # (Auto) 2.08 2.04 [place] # (Auto) 1.51 H 1.30 H Eos # (Auto) 0.11 0.25 Baso # (Auto) 0.03 0.03 Sodium Potassium Chloride Carbon Dioxide Anion Gap BUN Creatinine Est Cr Clr Drug Dosing Est GFR ( Amer) Est GFR (Non-Af Amer) BUN/Creatinine Ratio Glucose Calcium Total Bilirubin AST ALT Alkaline Phosphatase Total Protein Albumin Globulin Albumin/Globulin Ratio Herpes Virus Source Swab HSV I DNA PCR Not Detected HSV II DNA PCR Detected A 11/22/18 12:10 WBC RBC Hgb Hct MCV MCH MCHC RDW Std Deviation RDW Coeff of Maria Del Carmen Plt Count MPV Immature Gran % (Auto) Neut % (Auto) Lymph % (Auto) [place] % (Auto) Eos % (Auto) Baso % (Auto) Immature Gran # (Auto) Neut # (Auto) Lymph # (Auto) [place] # (Auto) Eos # (Auto) Baso # (Auto) Sodium 138 Potassium 3.7 Chloride 101 Carbon Dioxide 34 H Anion Gap 4.0 BUN 17 Creatinine 1.17 Est Cr Clr Drug Dosing 85.1 Est GFR ( Amer) 59.5 Est GFR (Non-Af Amer) 51.3 BUN/Creatinine Ratio 14.1 Glucose 119 H Calcium 8.7 Total Bilirubin 0.5 AST 16 ALT 19 Alkaline Phosphatase 125 H Total Protein 6.6 Albumin 2.1 L Globulin 4.4 H Albumin/Globulin Ratio 0.5 L Herpes Virus Source HSV I DNA PCR HSV II DNA PCR Medications Administered Current Inpatient Medications Acetaminophen (Tylenol) 650 mg PO Q4H PRN PRN Reason: Pain or Fever Stop: 12/17/18 20:02 Albuterol (Ventolin Hfa) 2 puffs INH Q6H PRN PRN Reason: sob Stop: 12/17/18 20:02 Atorvastatin Calcium (Lipitor) 20 mg PO QAM [facility] Stop: 12/17/18 20:59 Last Admin: 11/22/18 09:08 Dose: 20 mg Documented by: Bisacodyl (Dulcolax) 5 mg PO DAILY [facility] Stop: 12/18/18 11:59 Last Admin: 11/22/18 09:10 Dose: 5 mg Documented by: Calcium Carbonate (Tums) 500 mg PO Q6 PRN PRN Reason: Indigestion Stop: 12/21/18 11:27 Last Admin: 11/21/18 20:56 Dose: 500 mg Documented by: Docusate Sodium (Colace) 100 mg PO BID [facility] Stop: 12/18/18 08:59 Last Admin: 11/22/18 09:10 Dose: 100 mg Documented by: Furosemide (Lasix) 40 mg PO BID17 [facility] Stop: 12/21/18 08:59 Last Admin: 11/21/18 17:30 Dose: Not Given Documented by: Hydromorphone HCl (Dilaudid) 1 mg IV Q4 PRN PRN Reason: Pain Stop: 12/05/18 16:57 Last Admin: 11/22/18 12:19 Dose: 1 mg Documented by: Daptomycin 625 mg/ Syringe 12.5 mls @ 0 mls/min IV Q24H [facility]; Protocol Stop: 11/28/18 17:59 Last Admin: 11/21/18 18:02 Dose: 6.25 mls/min Documented by: Piperacillin Sod/Tazobactam (Sod 4.5 gm/ Dextrose) 120 mls @ 28.75 mls/hr IV Q8H [facility] Stop: 12/02/18 00:00 Last Admin: 11/22/18 15:14 Dose: 28.8 mls/hr Documented by: Sodium Chloride (Nss 1000ml) 1,000 mls @ 80 mls/hr IV .[id number] [facility] Stop: 12/22/18 07:29 Last Admin: 11/22/18 07:39 Dose: 80 mls/hr Documented by: Ioversol (Optiray 320 100ml) 120 ml IV ONCE PRN PRN Reason: Interaction Checking Stop: 11/25/18 16:12 Last Admin: 11/21/18 16:13 Dose: 120 ml Documented by: Lactobacillus Acidophilus (Floranex) 4 tab PO DAILY [facility] Stop: 12/18/18 08:59 Last Admin: 11/22/18 09:08 Dose: 4 tab Documented by: Levothyroxine Sodium (Synthroid) 75 mcg PO DAILYBB [facility] Stop: 12/18/18 06:29 Last Admin: 11/22/18 06:43 Dose: 75 mcg Documented by: [facility]atadine ([facility]) [facility] [place]: 12/18/18 08:59 Last Admin: 11/22/18 09:08 Dose: 10 mg Documented by: Miscellaneous Information (Consult) 1 ea N/A UD PRN PRN Reason: Consult Stop: 12/21/18 19:32 Ondansetron HCl (Zofran) 4 mg IV Q4H PRN PRN Reason: Nausea Stop: 12/19/18 14:42 Last Admin: 11/22/18 12:19 Dose: 4 mg Documented by: Pantoprazole Sodium (Protonix) 40 mg PO QAM [facility] Stop: 11/24/18 09:01 Last Admin: 11/22/18 09:08 Dose: 40 mg Documented by: Fluticasone/Salmeterol (Advair Diskus 250/50) 1 puffs INH BID PRN PRN Reason: sob Stop: 12/17/18 20:02 Sucralfate (Carafate) 1 gm PO QID PRN PRN Reason: heart burn Stop: 12/21/18 08:59 Last Admin: 11/21/18 07:41 Dose: 1 gm Documented by: Valacyclovir HCl (Valtrex) 1,000 mg PO BID [facility] Stop: 11/26/18 08:59 Last Admin: 11/22/18 09:08 Dose: 1,000 mg Documented by: Zolpidem Tartrate (Ambien) 5 mg PO HS PRN PRN Reason: Sleep Stop: 12/17/18 20:02 PG Care Time/CCT Total # of Minutes Spent Total Time Spent with Patient: Total time spent is greater than 50% in coordination of care (as documented) at patient's floor/unit and/or counseling patient: (1) Sepsis Sepsis type: Streptococcus, other Sepsis acute organ dysfunction status: unspecified Qualified Code(s): A40.8 - Other streptococcal sepsis (2) Clear cell carcinoma of kidney Laterality: right Qualified Code(s): C64.1 - Malignant neoplasm of right kidney, except renal pelvis (3) Hematuria Hematuria type: gross Qualified Code(s): R31.0 - Gross hematuria (4) Asthma Asthma severity: unspecified severity Asthma persistence: unspecified Asthma complication type: unspecified Qualified Code(s): J45.909 - Unspecified asthma, uncomplicated (5) Hypertension Hypertension type: essential hypertension Qualified Code(s): I10 - Essential (primary) hypertension (6) Peripheral neuropathy Peripheral neuropathy type: polyneuropathy, unspecified Qualified Code(s): G62.9 - Polyneuropathy, unspecified (7) Hyperlipidemia Hyperlipidemia type: mixed hyperlipidemia Qualified Code(s): E78.2 - Mixed hyperlipidemia
[2018-11-22] MEDS: DAPTOmycin 625 MG in SYRINGE 0 ML IV SCH (17:49)
[2018-11-23] MEDS: SUCRALFATE 1 GM/10 ML UDC PO PRN (00:03)
[2018-11-23] MEDS: HYDROmorphone INJ 1 MG/ML SYRINGE IV PRN ×6 (00:08→21:36)
[2018-11-23] MEDS: PIPERACILLIN/TAZOBACTAM 4.5 GM in DEXTROSE 5% 100 ML IV SCH ×3 (00:10→16:38)
[2018-11-23] MEDS: ACETAMINOPHEN 325 MG TAB PO PRN ×3 (03:36→16:38)
[2018-11-23] MEDS: LEVOTHYROXINE SODIUM 75 MCG TABLET PO SCH (06:02)
[2018-11-23] MEDS: SODIUM CHLORIDE 0.9% 1000ML 1,000 ML IV SCH (07:53)
[2018-11-23 08:41] LABS: Calcium 8.6 mg/dl (8.5-10.1); Creatinine Clr Calc Pharmacy 95.7 ml/min; Est GFR (African American) 68.6; Est GFR (Non-African American) 59.2; Potassium 3.6 mmol/L (3.5-5.1)
[2018-11-23 08:48] LABS: Basophils # (auto) 0.05 K/uL (0-0.2); Basophils % (auto) 0.4 %; Eosinophils # (auto) 0.36 K/uL (0-0.5); Eosinophils % (auto) 2.8 %; Hematocrit (blood only) 27.3 % (37-47); Hemoglobin 8.7 g/dL (12.0-16.0); Immature Granulocytes # (auto) 0.17 K/uL (0.00-0.02); Immature Granulocytes % (auto) 1.3 %; Lymphocytes # (auto) 2.01 K/uL (1.2-3.4); Lymphocytes % (auto) 15.8 %; Mean Corpuscular Hgb Conc 31.9 g/dL (32-36); Mean Corpuscular Volume 96.5 fL (80-100); Mean Platelet Volume 9.5 fL (7.4-10.4); Monocytes # (auto) 0.78 K/uL (0.11-0.59); Monocytes % (auto) 6.1 %; Neutrophils # (auto) 9.38 K/uL (1.4-6.5); Neutrophils % (auto) 73.6 %; Nucleated RBC # (auto) 0.06 K/uL (0-0); Nucleated RBC % (auto) 0.4 %; Platelet Count 399 K/uL (130-400); RDW Coefficient of Variation 15.1 % (11.5-14.5); RDW Standard Deviation 53.2 fL (36.4-46.3); Red Blood Count 2.83 M/uL (4.2-5.4); White Blood Count 12.75 K/uL (4.8-10.8)
[2018-11-23] MEDS: LORATADINE 10 MG TAB PO SCH (09:50)
[2018-11-23] MEDS: PANTOprazole 40 MG TAB PO SCH (09:50)
[2018-11-23] MEDS: VALACYCLOVIR HCL 500 MG TABLET PO SCH ×2 (09:50→21:10)
[2018-11-23] MEDS: LACTOBACILLUS ACIDOPHILUS (FLORANEX) TAB PO SCH (09:51)
[2018-11-23] MEDS: ATORVASTATIN 20 MG TAB PO SCH (09:51)
[2018-11-23] MEDS: DOCUSATE SODIUM 100 MG CAP PO SCH ×2 (09:57→21:16)
[2018-11-23] MEDS: BISACODYL 5 MG TABEC PO SCH (09:57)
--- NOTE | 2018-11-23 09:59 | Urology Progress Note ---
Date of Service November 23, 2018 Assessment & Plan (1) Complicated UTI (urinary tract infection): Feeling better today. Labs stable, afebrile. Will DC Horowitz today. Will continue to follow. (2) Right renal mass: Subjective 58 YO female POD #16 s/p robotic partial nephrectomy, Hospital Day #6 due to flank pain, bleed vs. infection vs. both. Patient feeling somewhat improved today. Pain controlled, nausea has resolved. No fevers/chills. Review of Systems Review of Systems: Per HPI. Physical Exam Physical Exam: NAD. Resp effort normal +O2 via NC. Abd soft. : Horowitz in place draining yellow urine. A&Ox3, appropriate affect. Results & Data Vital Signs (Past 12 Hours) Vital Signs Temp Pulse Pulse Resp BP BP Pulse Ox 11/23/18 07:42 36.5 C 61 20 104/64 95 11/22/18 23:59 36.6 C 61 18 121/67 93
[2018-11-23 13:12] LABS: INR 1.1 (0.9-1.1); Partial Thromboplastin Time 25.8 Seconds (21.0-31.0); Prothrombin Time 11.4 Seconds (9.0-12.0)
--- NOTE | 2018-11-23 14:21 | Infectious Disease Progress Nt ---
Date of Service November 23, 2018 Assessment & Plan (1) Complicated UTI (urinary tract infection): 58-year-old female status post nephrectomy for carcinoma, now with acute onset of right flank pain and hematuria. Agree with urology that bleeding may be causing her current symptoms. will stop dapto as zosyn is adequate. await followup ct scan. (2) Streptococcal infection: Subjective afebrile, zosyn added due to collection in GB fossa, for repeat ct in few days. afebrile. urine growing de la rosa sensitive E. faecalis, tolerating abx, has been on Dapto. blood cultures negative. wbc decreased to 12, hgb 8.7 Results & Data Vital Signs (Past 12 Hours) Vital Signs Temp Pulse Resp BP Pulse Ox 11/23/18 14:06 36.9 C 65 20 96/57 L 93 11/23/18 07:42 36.5 C 61 20 104/64 95 Laboratory Results Microbiology 11/17/18 20:35 Blood Aerobic Blood Culture - Final No growth in Aerobic bottle after 5 days. 11/17/18 20:35 Blood Anaerobic Blood Culture - Final No growth in Anaerobic bottle after 5 days. 11/17/18 20:21 Blood Aerobic Blood Culture - Final No growth in Aerobic bottle after 5 days. 11/17/18 20:21 Blood Anaerobic Blood Culture - Final No growth in Anaerobic bottle after 5 days. 11/17/18 20:31 Urine,Indwelling Cath Urine Culture - Final Enterococcus faecalis PG Care Time/CCT Total # of Minutes Spent Total Time Spent with Patient: Total time spent is greater than 50% in coordination of care (as documented) at patient's floor/unit and/or counseling patient:
--- NOTE | 2018-11-23 16:39 | Hospitalist Progress Note ---
Date of Service November 23, 2018 Assessment & Plan (1) Sepsis: 2nd to complicated UTI. urine culture from [facility] with de la rosa sensitive E faecalis blood cultures from 11/17 with no growth at five days time urine culture here also with E faecalis, de la rosa sensitive blood cultures negative continue Daptomycin, stopped Cefepime 11/20 added Zosyn on 11/21 to cover for possible abscess CT 11/21 with 8cm hematoma in gall bladder fossa, no recent gall bladder surgery add back gram negative and anaerobe coverage no fever, WBC down to 12k plan to repeat CT tomorrow to see if hematoma changed to abscess (2) Liver hematoma: reviewed with radiologist on 11/22 fluid appears to be blood, small liver laceration can be seen adjacent to blood collection was present on CT from 11/17, it was smaller Hb has dropped by nearly 3gm since admission, down to 8.7 today, BP stable no obvious signs that this is infected at this time certainly at risk for the fluid becoming infected will repeat CT tomorrow afternoon no indication that this should be drained at this time (3) Complicated UTI (urinary tract infection): Cx at [facility] and [facility] both with E faecalis treat with Daptomycin for time being, add Zosyn for GN and anaerobe coverage ID has been consulted; appreciate their recs. pain control with Dilaudid 1mg IV q4 PRN (4) Acute kidney injury: in setting of recent right sided partial nephrectomy, complicated UTI, and sepsis. FERNANDA resolved, Cr down to normal today (5) Acute respiratory failure with hypoxia: unclear etiology but breathing has been stable here uses CPAP at night for WENCESLAO resumed Lasix yesterday, will hold this evening with plans for NPO status stable on 4L currently (6) Acute blood loss anemia: 2nd to gross hematuria and also hematoma formation in liver concern of bleeding from operative site in the right kidney. urology following this. Hb down slightly at 8.7 (7) Ileus: x-rays 11/18 with evidence of ileus. clinically also with ileus, distended, hypoactive bowel sounds resolved overnight on 11/19 and again morning of 11/20, several BM soft to loose in caliber had another stool on 11/21 with good bowel sounds still with intermittent nausea liquid diet, toast and crackers okay (8) Clear cell carcinoma of kidney: right - s/p partial nephrectomy at [facility] on 11/07/18. appreciate Dr Medina's consult and recs. per Dr. Medina, margins were clear which indicates a good prognosis (9) Hematuria: either 2nd to UTI and/or bleeding from right kidney operative site. daily CBC. 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 (11) Asthma: no exacerbation at this time cont usual outpatient inhalers etc (12) Hypothyroidism (acquired): cont synthroid 75mcg daily uncertain of last TSH check would check it while here (13) Hypertension: HOLD home meds resume Lasix as BP coming up (14) Peripheral neuropathy: holding gabapentin in setting of FERNANDA, sepsis, etc resume once more stable (15) Hyperlipidemia: holding statin due to daptomycin use (16) Morbid obesity with BMI of 50.0-59.9, adult: BMI 59 (17) DVT prophylaxis: SCDs chemical means contraindicated in setting of gross hematuria PT/OT Subjective patient doing a lot better today tolerating liquids, the toast and crackers felt good on her stomach she moved her bowels today, abdomen is not tense she did have some pain in her right flank no chest pain, no dyspnea, no cough, no fever/chills Hb dropped from 9.2 to 8.7 WBC down to 12k from peak of 20k she appears to be responding well to change in antibiotics to Zosyn discussed plans to repeat CT tomorrow discussed with urology, okay to pull pitts today Review of Systems Review of Systems: All systems reviewed & are unremarkable except as noted in HPI & below Constitutional: + fatigue and + weakness; no fever, no chills and no sweats Respiratory: no cough and no dyspnea Cardiovascular: no chest pain and no edema Gastrointestinal: + abdominal pain; no nausea, no vomiting, no constipation and no diarrhea/loose stools Psychiatric: + depression (tearful, thinking about her grandchild who just , he was 21) Physical Exam Constitutional: WD/WN, vitals as above + obese and + diaphoretic Eyes: PERRL, conjunctivae normal, anicteric sclerae ENMT: external ear and nose normal, oropharynx normal Neck: trachea midline, no thyromegaly Respiratory: normal respiratory effort, lungs clear to auscultation (decreased breath sounds in bases) Cardiovascular: RRR, no murmur, no edema Gastrointestinal (Abdomen): Inspection/Auscultation: normal bowel sounds; abdomen not distended and no visible herniation Percussion/Palpation: abdomen soft and + tympanic to percussion; abdomen nontender, no guarding and abdomen not rigid Musculoskeletal: no cyanosis or clubbing, extremities motor strength 5/5 Skin: no rashes, warm and dry Neurologic: patellar DTR's 2+ bilat, sensation intact and PERRL, EOMI, accommodation nl, no face palsy, no dysarthria Psychiatric: A+Ox3, euthymic affect Lymphatic: no cervical or axillary lymphadenopathy Results & Data Vital Signs (Past 12 Hours) Vital Signs Temp Pulse Pulse Resp BP BP Pulse Ox 11/23/18 15:24 36.7 C 69 16 125/71 95 11/23/18 15:05 95 11/23/18 14:06 36.9 C 65 20 96/57 L 93 11/23/18 07:42 36.5 C 61 20 104/64 95 Laboratory Results Laboratory Results - last 24 hr 11/23/18 11/23/18 11/23/18 07:59 07:59 12:41 WBC 12.75 H RBC 2.83 L Hgb 8.7 L Hct 27.3 L MCV 96.5 MCH 30.7 MCHC 31.9 L RDW Std Deviation 53.2 H RDW Coeff of Maria [place] Carm[place] 15.1 H Plt Count 399 MPV 9.5 Immature Gran % (Auto) 1.3 Neut % (Auto) 73.6 Lymph % (Auto) 15.8 [place] % (Auto) 6.1 Eos % (Auto) 2.8 Baso % (Auto) 0.4 Immature Gran # (Auto) 0.17 H Neut # (Auto) 9.38 H Lymph # (Auto) 2.01 [place] # (Auto) 0.78 H Eos # (Auto) 0.36 Baso # (Auto) 0.05 Absolute Nucleated RBC 0.06 H Nucleated RBC % (auto) 0.4 PT 11.4 INR 1.1 APTT 25.8 PTT Ratio 1.0 Sodium 138 Potassium 3.6 Chloride 102 Carbon Dioxide 32 Anion Gap 4.0 BUN 14 Creatinine 1.04 Est Cr Clr Drug Dosing 95.7 Est GFR ( Amer) 68.6 Est GFR (Non-Af Amer) 59.2 BUN/Creatinine Ratio 13.0 Glucose 122 H Calcium 8.6 Medications Administered Current Inpatient Medications Acetaminophen (Tylenol) 650 mg PO Q4H PRN PRN Reason: Pain or Fever Stop: 12/17/18 20:02 Last Admin: 11/23/18 07:51 Dose: 650 mg Documented by: Albuterol (Ventolin Hfa) 2 puffs INH Q6H PRN PRN Reason: sob Stop: 12/17/18 20:02 Atorvastatin Calcium (Lipitor) 20 mg PO QAM [facility] Stop: 12/17/18 20:59 Last Admin: 11/23/18 09:51 Dose: 20 mg Documented by: Bisacodyl (Dulcolax) 5 mg PO DAILY [facility] Stop: 12/18/18 11:59 Last Admin: 11/23/18 09:57 Dose: 5 mg Documented by: Calcium Carbonate (Tums) 500 mg PO Q6 PRN PRN Reason: Indigestion Stop: 12/21/18 11:27 Last Admin: 11/21/18 20:56 Dose: 500 mg Documented by: Docusate Sodium (Colace) 100 mg PO BID [facility] Stop: 12/18/18 08:59 Last Admin: 11/23/18 09:57 Dose: 100 mg Documented by: Furosemide (Lasix) 40 mg PO BID17 [facility] Stop: 12/21/18 08:59 Last Admin: 11/21/18 17:30 Dose: Not Given Documented by: Hydromorphone HCl (Dilaudid) 1 mg IV Q4 PRN PRN Reason: Pain Stop: 12/05/18 16:57 Last Admin: 11/23/18 13:29 Dose: 1 mg Documented by: Piperacillin Sod/Tazobactam (Sod 4.5 gm/ Dextrose) 120 mls @ 28.75 mls/hr IV Q8H [facility] Stop: 12/02/18 00:00 Last Infusion: 11/23/18 13:29 Dose: Infused Documented by: Ioversol (Optiray 320 100ml) 120 ml IV ONCE PRN PRN Reason: Interaction Checking Stop: 11/25/18 16:12 Last Admin: 11/21/18 16:13 Dose: 120 ml Documented by: Lactobacillus Acidophilus (Floranex) 4 tab PO DAILY [facility] Stop: 12/18/18 08:59 Last Admin: 11/23/18 09:51 Dose: 4 tab Documented by: Levothyroxine Sodium (Synthroid) 75 mcg PO DAILYBB [facility] Stop: 12/18/18 06:29 Last Admin: 11/23/18 06:02 Dose: 75 mcg Documented by: Loratadine (Claritin) 10 mg PO QAM [facility] Stop: 12/18/18 08:59 Last Admin: 11/23/18 09:50 Dose: 10 mg Documented by: Miscellaneous Information (Consult) 1 ea N/A UD PRN PRN Reason: Consult Stop: 12/21/18 19:32 Ondansetron HCl (Zofran) 4 mg IV Q4H PRN PRN Reason: Nausea Stop: 12/19/18 14:42 Last Admin: 11/22/18 12:19 Dose: 4 mg Documented by: Pantoprazole Sodium (Protonix) 40 mg PO QAM [facility] Stop: 11/24/18 09:01 Last Admin: 11/23/18 09:50 Dose: 40 mg Documented by: Fluticasone/Salmeterol (Advair Diskus 250/50) 1 puffs INH BID PRN PRN Reason: sob Stop: 12/17/18 20:02 Sucralfate (Carafate) 1 gm PO QID PRN PRN Reason: heart burn Stop: 12/21/18 08:59 Last Admin: 11/23/18 00:03 Dose: 1 gm Documented by: Valacyclovir HCl (Valtrex) 1,000 mg PO BID [facility] Stop: 11/26/18 08:59 Last Admin: 11/23/18 09:50 Dose: 1,000 mg Documented by: Zolpidem Tartrate (Ambien) 5 mg PO HS PRN PRN Reason: Sleep Stop: 12/17/18 20:02 PG Care Time/CCT Total # of Minutes Spent Total Time Spent with Patient: Total time spent is greater than 50% in coordination of care (as documented) at patient's floor/unit and/or counseling patient: (1) Hematuria Hematuria type: gross Qualified Code(s): R31.0 - Gross hematuria (2) Hyperlipidemia Hyperlipidemia type: mixed hyperlipidemia Qualified Code(s): E78.2 - Mixed hyperlipidemia (3) Peripheral neuropathy Peripheral neuropathy type: polyneuropathy, unspecified Qualified Code(s): G62.9 - Polyneuropathy, unspecified (4) Sepsis Sepsis acute organ dysfunction status: unspecified Sepsis type: Streptococcus, other Qualified Code(s): A40.8 - Other streptococcal sepsis (5) Clear cell carcinoma of kidney Laterality: right Qualified Code(s): C64.1 - Malignant neoplasm of right kidney, except renal pelvis (6) Hypertension Hypertension type: essential hypertension Qualified Code(s): I10 - Essential (primary) hypertension (7) Asthma Asthma complication type: unspecified Asthma persistence: unspecified Asthma severity: unspecified severity Qualified Code(s): J45.909 - Unspecified asthma, uncomplicated
[2018-11-24] MEDS: PIPERACILLIN/TAZOBACTAM 4.5 GM in DEXTROSE 5% 100 ML IV SCH ×4 (00:48→23:51)
[2018-11-24] MEDS: HYDROmorphone INJ 1 MG/ML SYRINGE IV PRN ×6 (01:39→23:59)
[2018-11-24] MEDS ORDERED: BELLADONNA/OPIUM SUPP 60 MG SUPP PR ONE (02:51)
[2018-11-24] MEDS: PHENAZOPYRIDINE HCL 200 MG TAB PO PRN ×4 (03:24→23:51)
[2018-11-24] MEDS: LEVOTHYROXINE SODIUM 75 MCG TABLET PO SCH (05:36)
[2018-11-24 08:13] LABS: Basophils # (auto) 0.07 K/uL (0-0.2); Basophils % (auto) 0.5 %; Eosinophils # (auto) 0.43 K/uL (0-0.5); Hematocrit (blood only) 27.8 % (37-47); Hemoglobin 9.2 g/dL (12.0-16.0); Immature Granulocytes # (auto) 0.31 K/uL (0.00-0.02); Immature Granulocytes % (auto) 2.2 %; Lymphocytes # (auto) 2.43 K/uL (1.2-3.4); Mean Corpuscular Hgb Conc 33.1 g/dL (32-36); Mean Corpuscular Volume 96.2 fL (80-100); Mean Platelet Volume 9.2 fL (7.4-10.4); Monocytes # (auto) 0.94 K/uL (0.11-0.59); Monocytes % (auto) 6.6 %; Neutrophils % (auto) 70.7 %; Nucleated RBC # (auto) 0.08 K/uL (0-0); Nucleated RBC % (auto) 0.5 %; Platelet Count 432 K/uL (130-400); RDW Coefficient of Variation 15.1 % (11.5-14.5); RDW Standard Deviation 52.6 fL (36.4-46.3); Red Blood Count 2.89 M/uL (4.2-5.4); White Blood Count 14.28 K/uL (4.8-10.8)
[2018-11-24 08:51] LABS: BUN Creatinine Ratio 9.3 (10-20); Calcium 8.9 mg/dl (8.5-10.1); Creatinine Clr Calc Pharmacy 92.2 ml/min; Est GFR (African American) 65.5; Est GFR (Non-African American) 56.5; Potassium 3.5 mmol/L (3.5-5.1)
[2018-11-24] MEDS: LACTOBACILLUS ACIDOPHILUS (FLORANEX) TAB PO SCH (09:17)
[2018-11-24] MEDS: ATORVASTATIN 20 MG TAB PO SCH (09:17)
[2018-11-24] MEDS: PANTOprazole 40 MG TAB PO SCH (09:18)
[2018-11-24] MEDS: LORATADINE 10 MG TAB PO SCH (09:18)
[2018-11-24] MEDS: VALACYCLOVIR HCL 500 MG TABLET PO SCH ×2 (09:19→20:29)
[2018-11-24] MEDS: DOCUSATE SODIUM 100 MG CAP PO SCH ×2 (09:27→20:29)
[2018-11-24] MEDS: BISACODYL 5 MG TABEC PO SCH (09:27)
--- NOTE | 2018-11-24 09:34 | Urology Progress Note ---
Date of Service November 24, 2018 Assessment & Plan (1) Complicated UTI (urinary tract infection): Pitts removed. Monitoring. Tolerating control with B&O and pyridium. May need to change to ditropan for outpatient management of spasms. Improved labs. Complicated post op with hepatic and renal hematoma around 2 weeks post op. Monitoring for change to abscess. Has been Afebrile throughout time which leans against abscess. Ambulating. Wound care monitoring. PT ordered. Bowels normalized. Tolerating diet. Imaging to check stability and plan to monitor. If remains inpatient, may need to consider fitting supervisor assessment since planned visit this week to workup cyclical pelvic bleeding. (2) Right renal mass: Subjective Improved significantly this AM after B&O suppository. Pain better controlled. Tolerating diet. Has wound on leg being monitored by wound care. Plan for reimaging in next 1-2 days. H&H up. WBC down to 14. Back and abd pain better controlle.d Voiding on own with greater control. Decreased issues. no major bleeding since last night. Unsure if vaginal vs bladder bleeding. Likely bladder due to relation to pitts removal and will likely need outpatient cystoscopy. Patient has had approx 8 months of monthly vaginal/fitting supervisor bleeding. Was schedule to have pelvic u/s this week in [place]. May need to reschedule and possible consider inpatient if issues continue. Bowels moving regularly> No severe problems or concerns. Review of Systems Review of Systems: Per HPI. Constitutional: + fever, + chills and + fatigue Gastrointestinal: + abdominal pain; no nausea and no vomiting Genitourinary: + urinary frequency and + hematuria Bladder pressure reported Musculoskeletal: + back pain Integumentary: + rash; no acne Endocrine: + fatigue; no flushing Physical Exam Constitutional: + morbidly obese; no acute distress (Improved respiratory distress) Eyes: eyes not dysmorphic ENMT: Ears: no external ear abnormality Neck: trachea midline; no anterior neck swelling Respiratory: does not use accessory muscles and no audible wheezes Cardiovascular: Vessels: radial pulses present Gastrointestinal (Abdomen): Inspection/Auscultation: + abdomen distended (Difficult to assess due to obesity) Percussion/Palpation: + abdomen tender (Mild) and abdomen soft Musculoskeletal: Head/Neck/Chest: normocephalic Skin: normal turgor Neurologic: awake; not obtunded Psychiatric: Orientation: alert and oriented x 3 Lymphatic: no lymphadenopathy Results & Data Vital Signs (Past 12 Hours) Vital Signs Temp Pulse Resp BP Pulse Ox 11/24/18 07:32 36.9 C 73 22 149/65 H 92 11/24/18 00:45 36.8 C 65 18 136/82 97 PG Care Time/CCT Total # of Minutes Spent Total Time Spent with Patient: Total time spent is greater than 50% in coordination of care (as documented) at patient's floor/unit and/or counseling patient:
[2018-11-24] MEDS: BELLADONNA/OPIUM SUPP 60 MG SUPP PR PRN ×2 (11:00→20:30)
[2018-11-24] MEDS ORDERED: OPTIRAY 320 125ml IV PRN (15:11)
--- NOTE | 2018-11-24 15:31 | CT Scan Report ---
CT abd pelvis IV con only CLINICAL HISTORY: follow up liver hematoma, any signs of abscess? COMPARISON STUDY: 11/21/2018 TECHNIQUE: The patient was scanned in a dynamic helical fashion during intravenous administration of 116 cc of Optiray 320. A dose lowering technique was utilized adhering to the principles of ALARA. CT DOSE: 2098.84 mGy.cm FINDINGS: Lower chest: There is a small right pleural effusion. There are basilar atelectatic changes. Liver: There is an 8.5 cm heterogeneous subcapsular mass at the level of the gallbladder fossa. This likely represents a hematoma. This remain similar in size to the preceding examination. Gallbladder: Surgically absent. There is a 3.4 cm low-density rounded structure in the gallbladder fo ssa possibly representing a dropped gallstone Spleen: Normal in size and attenuation. Pancreas: Unremarkable. Adrenal glands: The 23 mm left adrenal nodule. There is a 19 mm right adrenal nodule. These remain un changed from the prior study Kidneys: There is an 8 cm right-sided perinephric hematoma. Postsurgical changes are suspected within the right kidney. There is mild dilatation of the right renal collecting system which appears hyperd ense suggesting hemorrhage. Bowel: There are no transition zone to indicate bowel obstruction. There is no evidence of acute dive rticulitis. There are no findings to indicate acute appendicitis. Peritoneum: There is no intraperitoneal free air or abdominal ascites. Vasculature: The abdominal aorta is normal in course and caliber. Adenopathy: None. Pelvic viscera: There is a 10 cm bladder mass likely representing a hematoma. There is a prominent le ft-sided fundal uterine fibroid. There is mild presacral edema. Skeletal structures: No destructive osseous lesions are seen. IMPRESSION: 1. Persistent small right pleural effusion with basilar atelectasis 2. Stable 8.5 cm subcapsular hepatic mass consistent with a hematoma 3. Postsurgical changes involving the right kidney. 8 cm right perinephric hematoma 4. Mild dilatation the right renal collecting system which appears hyperdense. Hemorrhage is suspecte d. There is a 10 cm bladder hematoma. 5. No evidence of bowel obstruction. No evidence of free air 6. Fibroid uterus 7. Possible dropped gallstone in the region of the gallbladder fossa 8. Bilateral adrenal nodules unchanged from the prior study Electronically signed by: Román Whiting M.D. 11/24/2018 3:29 PM
--- NOTE | 2018-11-24 15:47 | Hospitalist Progress Note ---
Date of Service November 24, 2018 Assessment & Plan (1) Sepsis: 2nd to complicated UTI. urine culture from [facility] with de la rosa sensitive E faecalis blood cultures from 11/17 with no growth at five days time urine culture here also with E faecalis, de la rosa sensitive blood cultures negative continue Daptomycin, stopped Cefepime 11/20 added Zosyn on 11/21 to cover for possible abscess CT 11/21 with 8cm hematoma in gall bladder fossa, no recent gall bladder surgery add back gram negative and anaerobe coverage repeat CT 11/24 with stable subcapsular liver hematoma, no signs of abscess no fever, WBC 14k, continue to monitor but for now no signs of abscess that would need drained (2) Liver hematoma: reviewed with radiologist on 11/22 fluid appears to be blood, small liver laceration can be seen adjacent to blood collection was present on CT from 11/17, it was smaller repeat CT on 11/24, hematoma stable, no signs of abscess can follow Hb which is up slightly at 9.2 (3) Complicated UTI (urinary tract infection): Cx at [facility] and [facility] both with E faecalis treat with Daptomycin for time being, add Zosyn for GN and anaerobe coverage ID has been consulted; appreciate their recs. decrease Dilaudid to 0.5mg IV from 1mg hold on using PO narcotics as she is prone to vomiting (4) Acute kidney injury: in setting of recent right sided partial nephrectomy, complicated UTI, and sepsis. FERNANDA resolved, Cr down to normal for a few days (5) Acute respiratory failure with hypoxia: unclear etiology but breathing has been stable here uses CPAP at night for WENCESLAO resumed Lasix yesterday, will hold this evening with plans for NPO status stable on 4L currently (6) Acute blood loss anemia: 2nd to gross hematuria and also hematoma formation in liver concern of bleeding from operative site in the right kidney. urology following this. Hb down slightly at 8.7 (7) Ileus: x-rays 11/18 with evidence of ileus. clinically also with ileus, distended, hypoactive bowel sounds resolved overnight on 11/19 and again morning of 11/20, several BM soft to loose in caliber had another stool on 11/21 with good bowel sounds tolerating low residue diet, moving bowels (8) Clear cell carcinoma of kidney: right - s/p partial nephrectomy at [facility] on 11/07/18. appreciate Dr Medina's consult and recs. per Dr. Medina, margins were clear which indicates a good prognosis (9) Hematuria: either 2nd to UTI and/or bleeding from right kidney operative site. daily CBC. urine dark tinged CT today with evidence of hematoma in the bladder (10) Obstructive sleep apnea on CPAP: cont CPAP need to watch for excessive sedation in setting of [employer] dilaudid use (11) Asthma: no exacerbation at this time cont usual outpatient inhalers etc (12) Hypothyroidism (acquired): cont synthroid 75mcg daily uncertain of last TSH check would check it while here (13) Hypertension: HOLD home meds resume Lasix as BP coming up (14) Peripheral neuropathy: holding gabapentin in setting of FERNANDA, sepsis, etc resume once more stable (15) Hyperlipidemia: holding statin due to daptomycin use (16) Morbid obesity with BMI of 50.0-59.9, adult: BMI 59 (17) DVT prophylaxis: SCDs chemical means contraindicated in setting of gross hematuria PT/OT Subjective patient doing well today OOB in chair, ambulating more, less pain in abdomen having some bladder cramps, but they improved with Seble Katarina irrigation having some fluids leak, unsure if urinary incontinence or from vagina no henny bleeding but the fluids are dark tinged reviewed labs, WBC is 14k, Hb 9.[address] abd/pelvis completed, reviewed results, the liver hematoma is stable, no signs of abscess at this time she also has hematoma around right kidney and hematoma in the bladder Review of Systems Review of Systems: All systems reviewed & are unremarkable except as noted in HPI & below Constitutional: no fever Respiratory: no cough and no dyspnea Cardiovascular: no chest pain Gastrointestinal: + abdominal pain; no nausea, no vomiting, no constipation and no diarrhea/loose stools Genitourinary: + urinary incontinence and + abnormal vaginal bleeding Physical Exam Constitutional: WD/WN, vitals as above + obese and + diaphoretic Eyes: PERRL, conjunctivae normal, anicteric sclerae ENMT: external ear and nose normal, oropharynx normal Neck: trachea midline, no thyromegaly Respiratory: normal respiratory effort, lungs clear to auscultation (decreased breath sounds in bases) Cardiovascular: RRR, no murmur, no edema Gastrointestinal (Abdomen): Inspection/Auscultation: normal bowel sounds; abdomen not distended and no visible herniation Percussion/Palpation: abdomen soft; abdomen nontender, no guarding and abdomen not rigid Musculoskeletal: no cyanosis or clubbing, extremities motor strength 5/5 Skin: no rashes, warm and dry Neurologic: patellar DTR's 2+ bilat, sensation intact and PERRL, EOMI, accommodation nl, no face palsy, no dysarthria Psychiatric: A+Ox3, euthymic affect Lymphatic: no cervical or axillary lymphadenopathy Results & Data Vital Signs (Past 12 Hours) Vital Signs Temp Pulse Resp BP Pulse Ox 11/24/18 15:35 71 16 147/82 H 95 11/24/18 07:32 36.9 C 73 22 149/65 H 92 Laboratory Results Laboratory Results - last 24 hr 11/24/18 11/24/18 07:49 07:49 WBC 14.28 H RBC 2.89 L Hgb 9.2 L Hct 27.8 L MCV 96.2 MCH 31.8 MCHC 33.1 RDW Std Deviation 52.6 H RDW Coeff of Maria Del Carmen 15.1 H Plt Count 432 H MPV 9.2 Immature Gran % (Auto) 2.2 Neut % (Auto) 70.7 Lymph % (Auto) 17.0 Levy % (Auto) 6.6 Eos % (Auto) 3.0 Baso % (Auto) 0.5 Immature Gran # (Auto) 0.31 H Neut # (Auto) 10.10 H Lymph # (Auto) 2.43 Levy # (Auto) 0.94 H Eos # (Auto) 0.43 Baso # (Auto) 0.07 Absolute Nucleated RBC 0.08 H Nucleated RBC % (auto) 0.5 Sodium 140 Potassium 3.5 Chloride 104 Carbon Dioxide 30 Anion Gap 6.0 BUN 10 Creatinine 1.08 Est Cr Clr Drug Dosing 92.2 Est GFR ( Amer) 65.5 Est GFR (Non-Af Amer) 56.5 BUN/Creatinine Ratio 9.3 L Glucose 109 H Calcium 8.[address] abdomen/pelvis with IV contrast IMPRESSION: 1. Persistent small right pleural effusion with basilar atelectasis 2. Stable 8.5 cm subcapsular hepatic mass consistent with a hematoma 3. Postsurgical changes involving the right kidney. 8 cm right perinephric hematoma 4. Mild dilatation the right renal collecting system which appears hyperdense. Hemorrhage is suspected. There is a 10 cm bladder hematoma. 5. No evidence of bowel obstruction. No evidence of free air 6. Fibroid uterus 7. Possible dropped gallstone in the region of the gallbladder fossa 8. Bilateral adrenal nodules unchanged from the prior study Medications Administered Current Inpatient Medications Acetaminophen (Tylenol) 650 mg PO Q4H PRN PRN Reason: Pain or Fever Stop: 12/17/18 20:02 Last Admin: 11/23/18 16:38 Dose: 650 mg Documented by: Albuterol (Ventolin Hfa) 2 puffs INH Q6H PRN PRN Reason: sob Stop: 12/17/18 20:02 Atorvastatin Calcium (Lipitor) 20 mg PO QAM [facility] Stop: 12/17/18 20:59 Last Admin: 11/24/18 09:17 Dose: 20 mg Documented by: Belladonna Alkaloids/Opium (B & O Adult) 60 mg IN Q8 PRN PRN Reason: Bladder pain Stop: 12/08/18 02:41 Last Admin: 11/24/18 11:00 Dose: 60 mg Documented by: Bisacodyl (Dulcolax) 5 mg PO DAILY [facility] Stop: 12/18/18 11:59 Last Admin: 11/24/18 09:27 Dose: 5 mg Documented by: Calcium Carbonate (Tums) 500 mg PO Q6 PRN PRN Reason: Indigestion Stop: 12/21/18 11:27 Last Admin: 11/21/18 20:56 Dose: 500 mg Documented by: Docusate Sodium (Colace) 100 mg PO BID [facility] Stop: 12/18/18 08:59 Last Admin: 11/24/18 09:27 Dose: 100 mg Documented by: Furosemide (Lasix) 40 mg PO BID17 [facility] Stop: 12/21/18 08:59 Last Admin: 11/21/18 17:30 Dose: Not Given Documented by: Hydromorphone HCl (Dilaudid) 1 mg IV Q4 PRN PRN Reason: Pain Stop: 12/05/18 16:57 Last Admin: 11/24/18 14:55 Dose: 1 mg Documented by: Piperacillin Sod/Tazobactam (Sod 4.5 gm/ Dextrose) 120 mls @ 28.75 mls/hr IV Q8H STEVE Stop: 12/02/18 00:00 Last Infusion: 11/24/18 12:18 Dose: Infused Documented by: Ioversol (Optiray 320 100ml) 120 ml IV ONCE PRN PRN Reason: Interaction Checking Stop: 11/25/18 16:12 Last Admin: 11/21/18 16:13 Dose: 120 ml Documented by: Ioversol (Optiray 320 125ml) 116 ml IV ONCE PRN PRN Reason: Interaction Checking Stop: 11/28/18 15:10 Last Admin: 11/24/18 15:12 Dose: 116 ml Documented by: Lactobacillus Acidophilus (Floranex) 4 tab PO DAILY [facility] Stop: 12/18/18 08:59 Last Admin: 11/24/18 09:17 Dose: 4 tab Documented by: Levothyroxine Sodium (Synthroid) 75 mcg PO DAILYBB [facility] Stop: 12/18/18 06:29 Last Admin: 11/24/18 05:36 Dose: 75 mcg Documented by: Loratadine (Claritin) 10 mg PO QAM [facility] Stop: 12/18/18 08:59 Last Admin: 11/24/18 09:18 Dose: 10 mg Documented by: Miscellaneous Information (Consult) 1 ea N/A UD PRN PRN Reason: Consult Stop: 12/21/18 19:32 Ondansetron HCl (Zofran) 4 mg IV Q4H PRN PRN Reason: Nausea Stop: 12/19/18 14:42 Last Admin: 11/22/18 12:19 Dose: 4 mg Documented by: Phenazopyridine HCl (Pyridium) 200 mg PO TID PRN PRN Reason: Bladder pain Stop: 12/24/18 02:46 Last Admin: 11/24/18 09:16 Dose: 200 mg Documented by: Fluticasone/Salmeterol (Advair Diskus 250/50) 1 puffs INH BID PRN PRN Reason: sob Stop: 12/17/18 20:02 Sucralfate (Carafate) 1 gm PO QID PRN PRN Reason: heart burn Stop: 12/21/18 08:59 Last Admin: 11/23/18 00:03 Dose: 1 gm Documented by: Valacyclovir HCl (Valtrex) 1,000 mg PO BID [facility] Stop: 11/26/18 08:59 Last Admin: 11/24/18 09:19 Dose: 1,000 mg Documented by: Zolpidem Tartrate (Ambien) 5 mg PO HS PRN PRN Reason: Sleep Stop: 12/17/18 20:02 PG Care Time/CCT Total # of Minutes Spent Total Time Spent with Patient: Total time spent is greater than 50% in coordination of care (as documented) at patient's floor/unit and/or counseling patient: (1) Hematuria Hematuria type: gross Qualified Code(s): R31.0 - Gross hematuria (2) Hyperlipidemia Hyperlipidemia type: mixed hyperlipidemia Qualified Code(s): E78.2 - Mixed hyperlipidemia (3) Peripheral neuropathy Peripheral neuropathy type: polyneuropathy, unspecified Qualified Code(s): G62.9 - Polyneuropathy, unspecified (4) Sepsis Sepsis acute organ dysfunction status: unspecified Sepsis type: Streptococcus, other Qualified Code(s): A40.8 - Other streptococcal sepsis (5) Clear cell carcinoma of kidney Laterality: right Qualified Code(s): C64.1 - Malignant neoplasm of right kidney, except renal pelvis (6) Hypertension Hypertension type: essential hypertension Qualified Code(s): I10 - Essential (primary) hypertension (7) Asthma Asthma complication type: unspecified Asthma persistence: unspecified Asthma severity: unspecified severity Qualified Code(s): J45.909 - Unspecified asthma, uncomplicated
[2018-11-25] MEDS: HYDROmorphone INJ 1 MG/ML SYRINGE IV PRN (04:01)
[2018-11-25] MEDS: LEVOTHYROXINE SODIUM 75 MCG TABLET PO SCH (06:23)
[2018-11-25] MEDS: LACTOBACILLUS ACIDOPHILUS (FLORANEX) TAB PO SCH (08:19)
[2018-11-25] MEDS: PIPERACILLIN/TAZOBACTAM 4.5 GM in DEXTROSE 5% 100 ML IV SCH ×2 (08:19→16:30)
[2018-11-25] MEDS: ATORVASTATIN 20 MG TAB PO SCH (08:20)
[2018-11-25] MEDS: LORATADINE 10 MG TAB PO SCH (08:20)
[2018-11-25] MEDS: PHENAZOPYRIDINE HCL 200 MG TAB PO PRN ×2 (08:20→16:59)
[2018-11-25] MEDS: VALACYCLOVIR HCL 500 MG TABLET PO SCH ×2 (08:20→20:53)
[2018-11-25] MEDS: BISACODYL 5 MG TABEC PO SCH (08:21)
[2018-11-25] MEDS: DOCUSATE SODIUM 100 MG CAP PO SCH ×2 (08:21→20:50)
[2018-11-25 08:24] LABS: Hematocrit (blood only) 27.5 % (37-47); Hemoglobin 8.7 g/dL (12.0-16.0); Mean Corpuscular Hgb Conc 31.6 g/dL (32-36); Mean Corpuscular Volume 96.2 fL (80-100); Platelet Count 407 K/uL (130-400); RDW Coefficient of Variation 15.2 % (11.5-14.5); RDW Standard Deviation 53.1 fL (36.4-46.3); Red Blood Count 2.86 M/uL (4.2-5.4); White Blood Count 11.31 K/uL (4.8-10.8)
--- NOTE | 2018-11-25 09:23 | Urology Progress Note ---
Date of Service November 25, 2018 Assessment & Plan (1) Complicated UTI (urinary tract infection): Monitoring. Imaging compelted yesterday without sign of abscess formation. Tolerating control with B&O and pyridium. May need to change to ditropan for outpatient management of spasms. Follow. Will watch for changes. Unsure why patient developed bleeding post op. No fall. No major issues or bleeding disorders. No blood thinners. Will continue to follow. Will need to check Cystoscopy at some point to determine source of bladder bleed after pitts removal. Follow. (2) Right renal mass: Subjective Hematoma stable without abscess. WBC down. H&H stable. Better control. Has some clot in bladder. No major changes. better pain control tolerating diet. Ambulating with PT. Review of Systems Review of Systems: Per HPI. Constitutional: + fever, + chills and + fatigue Gastrointestinal: + abdominal pain; no nausea and no vomiting Genitourinary: + urinary frequency and + hematuria Bladder pressure reported Musculoskeletal: + back pain Integumentary: + rash; no acne Endocrine: + fatigue; no flushing Physical Exam Constitutional: + morbidly obese; no acute distress (Improved respiratory distress) Eyes: eyes not dysmorphic ENMT: Ears: no external ear abnormality Neck: trachea midline; no anterior neck swelling Respiratory: does not use accessory muscles and no audible wheezes Cardiovascular: Vessels: radial pulses present Gastrointestinal (Abdomen): Inspection/Auscultation: + abdomen distended (Difficult to assess due to obesity) Percussion/Palpation: + abdomen tender (Mild) and abdomen soft Musculoskeletal: Head/Neck/Chest: normocephalic Skin: normal turgor Neurologic: awake; not obtunded Psychiatric: Orientation: alert and oriented x 3 Lymphatic: no lymphadenopathy Results & Data Vital Signs (Past 12 Hours) Vital Signs Temp Pulse Resp BP Pulse Ox 11/25/18 07:43 36.5 C 65 20 124/69 91 11/24/18 22:50 36.8 C 63 18 131/82 94 PG Care Time/CCT Total # of Minutes Spent Total Time Spent with Patient: Total time spent is greater than 50% in coordination of care (as documented) at patient's floor/unit and/or counseling patient:
[2018-11-25] MEDS: HYDROmorphone INJ 0.5 MG/0.5 ML SYR IV PRN ×2 (09:53→16:30)
[2018-11-25] MEDS: FUROSEMIDE 40 MG TAB PO SCH ×3 (12:51→23:27)
[2018-11-25] MEDS: OXYCODONE HCL IR 5 MG TAB (IMMEDIATE RELEASE) PO PRN ×2 (12:51→20:54)
[2018-11-25] MEDS: BELLADONNA/OPIUM SUPP 60 MG SUPP PR PRN (13:47)
--- NOTE | 2018-11-25 15:09 | Hospitalist Progress Note ---
Date of Service November 25, 2018 Assessment & Plan (1) Sepsis: 2nd to complicated UTI. urine culture from [facility] with de la rosa sensitive E faecalis blood cultures from 11/17 with no growth at five days time urine culture here also with E faecalis, de la rosa sensitive blood cultures negative stopped Cefepime 11/20 changed to Zosyn on 11/21 to cover for possible abscess CT 11/21 with 8cm hematoma in gall bladder fossa, no recent gall bladder surgery add back gram negative and anaerobe coverage repeat CT 11/24 with stable subcapsular liver hematoma, no signs of abscess no fever, WBC 11k, continue to monitor but for now no signs of abscess that would need drained Plan: continue Zosyn for two more days, as long as she is stable, would d/c to home would use Augmentin, complete 14 days from 11/17 so last day would be 10/30 (2) Liver hematoma: reviewed with radiologist on 11/22 fluid appears to be blood, small liver laceration can be seen adjacent to blood collection was present on CT from 11/17, it was smaller repeat CT on 11/24, hematoma stable, no signs of abscess can follow Hb which is stable at 8.7 (3) Complicated UTI (urinary tract infection): Cx at [facility] and [facility] both with E faecalis Zosyn for GN and anaerobe coverage as above, use Zosyn x 2 more days then Augmentin on discharge complete 14 days total ID has been consulted; appreciate their recs. decrease Dilaudid to 0.5mg IV from 1mg use Oxycodone PRN (4) Acute kidney injury: in setting of recent right sided partial nephrectomy, complicated UTI, and sepsis. FERNANDA resolved, Cr down to normal for a few days resumed Lasix 40mg TID due to some mild peripheral swelling (5) Acute respiratory failure with hypoxia: unclear etiology but breathing has been stable here uses CPAP at night for WENCESLAO resumed Lasix to keep lungs dry stable on 4L currently (6) Acute blood loss anemia: 2nd to gross hematuria and also hematoma formation in liver concern of bleeding from operative site in the right kidney. urology following this. Hb stable at 8.7 (7) Ileus: x-rays 11/18 with evidence of ileus. clinically also with ileus, distended, hypoactive bowel sounds resolved overnight on 11/19 and again morning of 11/20, several BM soft to loose in caliber had another stool on 11/21 with good bowel sounds tolerating low residue diet, moving bowels daily, ileus completely resolved (8) Clear cell carcinoma of kidney: right - s/p partial nephrectomy at [facility] on 11/07/18. appreciate Dr Medina's consult and recs. per Dr. Carroll, margins were clear which indicates a good prognosis (9) Hematuria: either 2nd to UTI and/or bleeding from right kidney operative site. daily CBC. urine dark tinged CT 11/24 with evidence of hematoma in the bladder per Dr. Carroll, she will likely need a cystoscopy in office in near future (10) Bladder spasm: using Seble Katarina per urology, will probably use Ditropan on discharge (11) Obstructive sleep apnea on CPAP: cont CPAP need to watch for excessive sedation in setting of PAPER STACKER dilaudid use (12) Asthma: no exacerbation at this time cont usual outpatient inhalers etc (13) Hypothyroidism (acquired): cont synthroid 75mcg daily uncertain of last TSH check would check it while here (14) Hypertension: HOLD home meds resume Lasix as BP coming up (15) Peripheral neuropathy: holding gabapentin in setting of FERNANDA, sepsis, etc resume once more stable (16) Hyperlipidemia: holding statin due to daptomycin use (17) Morbid obesity with BMI of 50.0-59.9, adult: BMI 59 (18) DVT prophylaxis: SCDs chemical means contraindicated in setting of gross hematuria PT/OT Plan: likely home on Monday if she continues to do well and Hb remains stable Subjective patient feeling well today, a little better than yesterday keeping all her food down, no nausea or vomiting she continues to move her bowels no chest pain or dyspnea, no fever/chills she is getting more active no issues urinating since pitts pulled reviewed labs, Hb is stable at 9.7 and WBC down to 11k Review of Systems Review of Systems: All systems reviewed & are unremarkable except as noted in HPI & below Constitutional: no fever, no chills, no fatigue and no weakness Respiratory: no cough and no dyspnea Cardiovascular: + edema (trace); no chest pain Gastrointestinal: no abdominal pain, no nausea, no vomiting, no constipation, no diarrhea/loose stools and no blood in stools Genitourinary: + difficulty urinating and + problem reported (bladder spasms) Physical Exam Constitutional: WD/WN, vitals as above + obese and + diaphoretic Eyes: PERRL, conjunctivae normal, anicteric sclerae ENMT: external ear and nose normal, oropharynx normal Neck: trachea midline, no thyromegaly Respiratory: normal respiratory effort, lungs clear to auscultation (decreased breath sounds in bases) Cardiovascular: RRR, no murmur, no edema Gastrointestinal (Abdomen): Inspection/Auscultation: normal bowel sounds; abdomen not distended and no visible herniation Percussion/Palpation: abdomen soft; abdomen nontender, no guarding and abdomen not rigid Musculoskeletal: no cyanosis or clubbing, extremities motor strength 5/5 Skin: no rashes, warm and dry Neurologic: patellar DTR's 2+ bilat, sensation intact and PERRL, EOMI, accommodation nl, no face palsy, no dysarthria Psychiatric: A+Ox3, euthymic affect Lymphatic: no cervical or axillary lymphadenopathy Results & Data Vital Signs (Past 12 Hours) Vital Signs Temp Pulse Resp BP Pulse Ox 11/25/18 15:04 36.8 C 61 20 131/74 93 11/25/18 07:43 36.5 C 65 20 124/69 91 Laboratory Results Laboratory Results - last 24 hr 11/25/18 08:09 WBC 11.31 H RBC 2.86 L Hgb 8.7 L Hct 27.5 L MCV 96.2 MCH 30.4 MCHC 31.6 L RDW Std Deviation 53.1 H RDW Coeff of Maria Del Carmen 15.2 H Plt Count 407 H MPV 9.0 Medications Administered Current Inpatient Medications Acetaminophen (Tylenol) 650 mg PO Q4H PRN PRN Reason: Pain or Fever Stop: 12/17/18 20:02 Last Admin: 11/23/18 16:38 Dose: 650 mg Documented by: Albuterol (Ventolin Hfa) 2 puffs INH Q6H PRN PRN Reason: sob Stop: 12/17/18 20:02 Atorvastatin Calcium (Lipitor) 20 mg PO QAM STEVE Stop: 12/17/18 20:59 Last Admin: 11/25/18 08:20 Dose: 20 mg Documented by: Belladonna Alkaloids/Opium (B & O Adult) 60 mg [place] Q8 PRN PRN Reason: Bladder pain Stop: 12/08/18 02:41 Last Admin: 11/25/18 13:47 Dose: 60 mg Documented by: Bisacodyl (Dulcolax) 5 mg PO DAILY [facility] Stop: 12/18/18 11:59 Last Admin: 11/25/18 08:21 Dose: Not Given Documented by: Calcium Carbonate (Tums) 500 mg PO Q6 PRN PRN Reason: Indigestion Stop: 12/21/18 11:27 Last Admin: 11/21/18 20:56 Dose: 500 mg Documented by: Docusate Sodium (Colace) 100 mg PO BID [facility] Stop: 12/18/18 08:59 Last Admin: 11/25/18 08:21 Dose: Not Given Documented by: Furosemide (Lasix) 40 mg PO TID [facility] Stop: 12/25/18 13:59 Last Admin: 11/25/18 12:51 Dose: 40 mg Documented by: Hydromorphone HCl (Dilaudid) 0.5 mg IV Q4H PRN PRN Reason: Pain Stop: 12/09/18 09:40 Last Admin: 11/25/18 09:53 Dose: 0.5 mg Documented by: Piperacillin Sod/Tazobactam (Sod 4.5 gm/ Dextrose) 120 mls @ 28.75 mls/hr IV Q8H [facility] Stop: 12/02/18 00:00 Last Infusion: 11/25/18 12:42 Dose: Infused Documented by: Ioversol (Optiray 320 100ml) 120 ml IV ONCE PRN PRN Reason: Interaction Checking Stop: 11/25/18 16:12 Last Admin: 11/21/18 16:13 Dose: 120 ml Documented by: Ioversol (Optiray 320 125ml) 116 ml IV ONCE PRN PRN Reason: Interaction Checking Stop: 11/28/18 15:10 Last Admin: 11/24/18 15:12 Dose: 116 ml Documented by: Lactobacillus Acidophilus (Floranex) 4 tab PO DAILY [facility] Stop: 12/18/18 08:59 Last Admin: 11/25/18 08:19 Dose: 4 tab Documented by: Levothyroxine Sodium (Synthroid) 75 mcg PO DAILYBB [facility] Stop: 12/18/18 06:29 Last Admin: 11/25/18 06:23 Dose: 75 mcg Documented by: Loratadine (Claritin) 10 mg PO QAM STEVE Stop: 12/18/18 08:59 Last Admin: 11/25/18 08:20 Dose: 10 mg Documented by: Miscellaneous Information (Consult) 1 ea N/A UD PRN PRN Reason: Consult Stop: 12/21/18 19:32 Ondansetron HCl (Zofran) 4 mg IV Q4H PRN PRN Reason: Nausea Stop: 12/19/18 14:42 Last Admin: 11/22/18 12:19 Dose: 4 mg Documented by: Oxycodone HCl (Roxicodone Immediate Rel) 5 mg PO Q6 PRN PRN Reason: Pain Stop: 12/09/18 12:36 Last Admin: 11/25/18 12:51 Dose: 5 mg Documented by: Phenazopyridine HCl (Pyridium) 200 mg PO TID PRN PRN Reason: Bladder pain Stop: 12/24/18 02:46 Last Admin: 11/25/18 08:20 Dose: 200 mg Documented by: Fluticasone/Salmeterol (Advair Diskus 250/50) 1 puffs INH BID PRN PRN Reason: sob Stop: 12/17/18 20:02 Valacyclovir HCl (Valtrex) 1,000 mg PO BID STEVE Stop: 11/26/18 08:59 Last Admin: 11/25/18 08:20 Dose: 1,000 mg Documented by: Zolpidem Tartrate (Ambien) 5 mg PO HS PRN PRN Reason: Sleep Stop: 12/17/18 20:02 PG Care Time/CCT Total # of Minutes Spent Total Time Spent with Patient: Total time spent is greater than 50% in coordination of care (as documented) at patient's floor/unit and/or counseling patient: (1) Hematuria Hematuria type: gross Qualified Code(s): R31.0 - Gross hematuria (2) Hyperlipidemia Hyperlipidemia type: mixed hyperlipidemia Qualified Code(s): E78.2 - Mixed hyperlipidemia (3) Peripheral neuropathy Peripheral neuropathy type: polyneuropathy, unspecified Qualified Code(s): G62.9 - Polyneuropathy, unspecified (4) Sepsis Sepsis acute organ dysfunction status: unspecified Sepsis type: Streptococcus, other Qualified Code(s): A40.8 - Other streptococcal sepsis (5) Clear cell carcinoma of kidney Laterality: right Qualified Code(s): C64.1 - Malignant neoplasm of right kidney, except renal pelvis (6) Hypertension Hypertension type: essential hypertension Qualified Code(s): I10 - Essential (primary) hypertension (7) Asthma Asthma complication type: unspecified Asthma persistence: unspecified Asthma severity: unspecified severity Qualified Code(s): J45.909 - Unspecified asthma, uncomplicated
[2018-11-25] MEDS: ACETAMINOPHEN 325 MG TAB PO PRN (17:51)
[2018-11-25] MEDS: ZOLPIDEM TARTRATE 5 MG TAB PO PRN (20:54)
[2018-11-25] MEDS ORDERED: Nursing to Pharmacy Communication ONE (20:59)
[2018-11-26] MEDS: PIPERACILLIN/TAZOBACTAM 4.5 GM in DEXTROSE 5% 100 ML IV SCH ×4 (00:20→23:18)
[2018-11-26 05:38] LABS: Hematocrit (blood only) 26.5 % (37-47); Hemoglobin 8.5 g/dL (12.0-16.0); Mean Corpuscular Hgb Conc 32.1 g/dL (32-36); Mean Corpuscular Volume 97.1 fL (80-100); Nucleated RBC # (auto) 0.07 K/uL (0-0); Nucleated RBC % (auto) 0.6 %; Platelet Count 379 K/uL (130-400); RDW Coefficient of Variation 15.7 % (11.5-14.5); RDW Standard Deviation 54.5 fL (36.4-46.3); Red Blood Count 2.73 M/uL (4.2-5.4)
[2018-11-26] MEDS: LEVOTHYROXINE SODIUM 75 MCG TABLET PO SCH (05:54)
[2018-11-26 06:03] LABS: BUN Creatinine Ratio 8.1 (10-20); Calcium 8.3 mg/dl (8.5-10.1); Creatinine Clr Calc Pharmacy 92.2 ml/min; Est GFR (African American) 65.5; Est GFR (Non-African American) 56.5; Potassium 3.9 mmol/L (3.5-5.1)
--- NOTE | 2018-11-26 07:37 | Urology Progress Note ---
Date of Service November 26, 2018 Assessment & Plan (1) Complicated UTI (urinary tract infection): 58yo comorbid female, Post p Right robotic lap assisted partial nephrectomy, extensive lysis of adhesions on 11/06/18, complicated post op course with UTI, and subcapsular liver hematoma, without abscess formation VSS, afebrile. Labs stable. Questionably required straight cath x1, patient report inconsistent with nightshift RN report and documentation. Discussed with dayshift RN, will monitor closely. - If pt does require straight cath today, make urology service aware. She may require indwelling catheter/light bladder irrigation if issues persist. Continue to wean supplemental O2, use of IS and ambulation encouraged. Bladder spasms: continue B&Os and pyridium as needed. May need to change to ditropan for outpatient management of spasms. Again, pt will require Cystoscopy as outpatient to further assess. Will arrange. Will continue to monitor. Please see additional comments per my attending as indicated. Subjective 58yo comorbid female, Post p Right robotic lap assisted partial nephrectomy, extensive lysis of adhesions on 11/06/18, complicated post op course with UTI, and subcapsular liver hematoma, without abscess formation Pt resting but easily arousable this AM. States she had a good night, was able to get some rest. Denies n/v/f/c. Denies cp/sob. Tolerating diet without issue, having regular BMs. She did states she required straight cath x1 last night, however dayshift RN was unaware of this. May be poor historian in this regard. Her bladder spasms better controlled with B&O. She is getting OOB to chair. Still requiring 2LNC, will encourage to wean if possible. Labs reviewed, H/H stable at 26.5/8.5 (27.5/8/7 yesterday), WBC and Cr wnl. Review of Systems Review of Systems: Constitutional: Denies fever, chills, sweats, malaise Eyes: Denies problem reported ENMT: Denies dizziness Resp: Denies cough, Denies shortness of breath CV: Denies JVD GI: Denies nausea/vomiting : Seee HPI, Denies suprapubic or flank pain, dysuria, urgency, frequency, hematuria MS: Denies swelling, stiffness Integ: Denies rash, erythema Neuro: Denies falls, weakness Psych: Denies behavior change Endo: Denies polyphagia, polydipsia Heme: Denies easy bleeding Genitourinary: + difficulty urinating (?straight cath x1); no dysuria and no urinary hesitancy +bladder spasms, improved Physical Exam Constitutional: no acute distress and not ill appearing Eyes: no nystagmus ENMT: Ears: no hearing impairment Neck: trachea midline Respiratory: no respiratory distress and no cough Cardiovascular: Vessels: no JVD Chest (Breasts): Chest: normal inspection of chest Gastrointestinal (Abdomen): Inspection/Auscultation: abdomen not distended and no abdominal edema Percussion/Palpation: abdomen soft; abdomen nontender Musculoskeletal: Head/Neck/Chest: normocephalic and head atraumatic Skin: no rashes, warm and dry Neurologic: awake; not confused and not obtunded Psychiatric: Orientation: alert and oriented x 3 Eye Contact: good eye contact Affect: no depressed affect Lymphatic: no lymphadenopathy and no lymphedema Results & Data Vital Signs (Past 12 Hours) Vital Signs Temp Pulse Resp BP Pulse Ox 11/25/18 22:55 36.7 C 66 18 100/60 94
[2018-11-26] MEDS: LORATADINE 10 MG TAB PO SCH (08:39)
[2018-11-26] MEDS: ATORVASTATIN 20 MG TAB PO SCH (08:39)
[2018-11-26] MEDS: FUROSEMIDE 40 MG TAB PO SCH ×3 (08:39→16:21)
[2018-11-26] MEDS: LACTOBACILLUS ACIDOPHILUS (FLORANEX) TAB PO SCH (08:40)
[2018-11-26] MEDS: DOCUSATE SODIUM 100 MG CAP PO SCH ×2 (08:40→20:47)
[2018-11-26] MEDS: BISACODYL 5 MG TABEC PO SCH (08:40)
[2018-11-26] MEDS: OXYCODONE HCL IR 5 MG TAB (IMMEDIATE RELEASE) PO PRN ×3 (09:34→20:49)
[2018-11-26] MEDS: PHENAZOPYRIDINE HCL 200 MG TAB PO PRN ×2 (09:34→18:31)
--- NOTE | 2018-11-26 09:50 | Hospitalist Progress Note ---
Date of Service November 26, 2018 Assessment & Plan (1) Sepsis: Secondary to complicated UTI - urine culture from [facility] with de la rosa sensitive E faecalis Negative Blood Cx (from 11/17) Urine culture- E faecalis- pansensitive Continue Zosyn- will convert to Augmentin PO tomorrow for completed course of 14 days, ending 11/30 Patient currently afebrile, WBC 11.1- continues to trend down Continue to monitor CBC for possible signs of abscess that would require drainage. Progression--> CT 11/21 with 8cm hematoma in gall bladder fossa, no recent gall bladder surgery Repeat CT 11/24 with stable subcapsular liver hematoma, no signs of abscess (2) Liver hematoma: Reviewed with radiologist on 11/22- fluid appears to be blood. small liver laceration can be seen adjacent to blood collection. was present on CT from 11/17, it was smaller repeat CT on 11/24, hematoma stable, no signs of abscess Hemoglobin 8.5 today. (3) Complicated UTI (urinary tract infection): Cx at [facility] and [facility] both with E faecalis Zosyn for GN and anaerobe coverage-- will convert tomorrow to Augmentin ID has been consulted; appreciate their recs. Discontinue Dilaudid- will increase oxycodone to MME for anticipated discharge- patient uses Percocet 10/325 at home 3-4 times/day. (4) Acute kidney injury: In setting of recent right sided partial nephrectomy, complicated UTI, and sepsis. Resolved now- creatinine 1.08 today. Resume Lasix 40mg TID (5) Acute respiratory failure with hypoxia: Unclear etiology but breathing has been stable here-- patient with WENCESLAO-- has CPAP at home with setting of 17. Patient currently does not have home CPAP with her. Discussed with patient to have sister bring home CPAP- ordered for this adm ission if she is unable to bring it in. Continue home lasix to reduce edema Currently on O2- 2L via NC, sats 96% (6) Acute blood loss anemia: Secondary to gross hematura +/- hematoma formation in the lvier--> concern of bleeding from operative site in the right kidney. Urology continuing to follow Hb 8.7 on 11/25, decreased to 8.5 on 11/26- will continue to monitor. (7) Ileus: Resolved x-rays 11/18 with evidence of ileus-- resolved overnight 11/19. Patient continues to have soft to loose stool. Tolerating low residue diet without difficulty. (8) Clear cell carcinoma of kidney: right - s/p partial nephrectomy at [facility] on 11/07/[address] Medina consults- appreciate recommendations per Dr. Carroll, margins were clear which indicates a good prognosis (9) Hematuria: Secondary to UTI or bleeding from nephrectomy site. Resolving- patient denies recent hematuria CT on 11/24 with evidence of hematoma in the bladder Daily CBCs ordered per Dr. Carroll, she will likely need a cystoscopy in office in near future (10) Bladder spasm: Using Seble Katarina and pyridium Per Urology, patient may require ditropan on discharge for bladder spams (11) Obstructive sleep apnea on CPAP: Patient with known WENCESLAO- no CPAP in room and patient has not been using CPAP during this admission. Ordered today after discussion with patient regarding possibility for her sister to bring her home machine. (12) Asthma: No exacerbation at this time Cont usual outpatient inhalers etc (13) Hypothyroidism (acquired): Cont synthroid 75mcg daily (14) Hypertension: Hold home meds Resume Lasix as BP coming up (15) Peripheral neuropathy: Holding gabapentin in setting of FERNANDA, sepsis, etc Resume once more stable (16) Hyperlipidemia: Holding statin due to daptomycin use- restarted atorvastatin 20mg (17) Morbid obesity with BMI of 50.0-59.9, adult: BMI 59 (18) DVT prophylaxis: SCDs Chemical means contraindicated in setting of gross hematuria PT/OT Plan: likely home on Monday if she continues to do well and Hb remains stable- agreeable to rehab with home health Supervising Physician Co-Signing Physician Notes Attending Attestation: Pt seen/examined, chart reviewed, care plan d/w NAZARIO Fagan. I agree w/ the reed components of her documentation except - I don't appreciate an S3 gallop. Pt w/ ongoing right flank and suprapubic pain. Urology added belladona for latter. Still using copious narcotics. Agreeable to rehab in [place]. Eating well. VSS, no fever gen - morbidly obese, mild discomfort due to bladder pain mouth - MMM neck - no obvious JVD heart - RRR, s1 s2 lungs - CTA b/l abd - no flank tenderness to palpation, BS+, ND, mild suprapubic tenderness ext - 1+ edema b/l labs acceptable, Cr 1 Hb 8.5 A/P: 1. sepsis 2nd to complicated UTI - resolved. 2. acute blood loss anemia 2nd to probable bleeding from right kidney (operative site from nephrectomy) - stable H/H. 3. hematuria - resolved. 4. right flank and bladder pain - appreciate urology input. Attempt to wean IV dilaudid. Transition to oral agents. dispo planning - home vs rehab Fco Petersen MD Subjective Patient states she is continuing to experience right sided flank pain. Patient is also experiencing pain that she believes is from bladder spasm. The patient was initiated on belladonna and pyridium but is still utilizing diluadid and oxycodone as needed for pain. She states the pain is a 9/10 and improved to a 3.5-4/10 with medication. The patient has been passing flatus and having bowel movements, but denies awareness of continuing hematuria. The patient has been tolerating diet without issue. The patient denies any nausea, vomiting, chest pain, shortness of breath, fever, or chills. Review of Systems Review of Systems: All systems reviewed & are unremarkable except as noted in HPI & below Constitutional: + body aches; no fever and no chills Eyes: as per Subjective / HPI Ear, Nose, Mouth, Throat: + dry mouth; no ear pain and no tinnitus Respiratory: no cough, no chest congestion and no change in sputum Cardiovascular: + edema (trace); no chest pain Gastrointestinal: + abdominal pain (suprapubic); no nausea, no vomiting, no change in stools and no constipation Genitourinary: + difficulty urinating, + urinary incontinence and + problem reported (bladder spasms) patient reports bladder spasms Musculoskeletal: + back pain (chronic- at baseline) Physical Exam Constitutional: WD/WN, vitals as above well developed, well nourished, + acute distress (due to pain), + ill appearing and + morbidly obese; no altered mental status appearing uncomfortable Eyes: PERRL, conjunctivae normal, anicteric sclerae ENMT: external ear and nose normal, oropharynx normal top and bottom dentures Neck: trachea midline, no thyromegaly Respiratory: normal respiratory effort, lungs clear to auscultation (decreased breath sounds in bases) normal respiratory effort; no labored breathing Auscultation: + diminished lung sounds (bases); no crackles and no wheezes bibasliar crackles Cardiovascular: RRR, no murmur, no edema Rate/Rhythm: regular rate and regular rhythm Heart Sounds: normal S1 and normal S2; no gallop, no murmur and no cardiac rub Palpation: + palpable S3 Vessels: posterior tibial pulses present and dorsalis pedis pulses present; no JVD Extremities: + edema (bilateral lower extremity lymphadema) Gastrointestinal (Abdomen): normal bowel sounds, soft, nontender, no hepatosplenomegaly Inspection/Auscultation: normal bowel sounds; abdomen not distended and no visible herniation Percussion/Palpation: abdomen soft; abdomen nontender, no guarding and abdomen not rigid Musculoskeletal: no cyanosis or clubbing, extremities motor strength 5/5 Skin: no rashes, warm and dry Neurologic: patellar DTR's 2+ bilat, sensation intact and PERRL, EOMI, accommodation nl, no face palsy, no dysarthria Psychiatric: A+Ox3, euthymic affect Lymphatic: no cervical or axillary lymphadenopathy Results & Data Vital Signs (Past 12 Hours) Vital Signs Temp Pulse Pulse Resp BP Pulse Ox 11/26/18 07:48 36.9 C 62 20 122/74 92 11/25/18 22:55 36.7 C 66 18 100/60 94 PG Care Time/CCT Total # of Minutes Spent Total Time Spent with Patient: Total time spent is greater than 50% in coordination of care (as documented) at patient's floor/unit and/or counseling patient: 45 (1) Hematuria Hematuria type: gross Qualified Code(s): R31.0 - Gross hematuria (2) Hyperlipidemia Hyperlipidemia type: mixed hyperlipidemia Qualified Code(s): E78.2 - Mixed hyperlipidemia (3) Peripheral neuropathy Peripheral neuropathy type: polyneuropathy, unspecified Qualified Code(s): G62.9 - Polyneuropathy, unspecified (4) Sepsis Sepsis acute organ dysfunction status: unspecified Sepsis type: Streptococcus, other Qualified Code(s): A40.8 - Other streptococcal sepsis (5) Clear cell carcinoma of kidney Laterality: right Qualified Code(s): C64.1 - Malignant neoplasm of right kidney, except renal pelvis (6) Hypertension Hypertension type: essential hypertension Qualified Code(s): I10 - Essential (primary) hypertension (7) Asthma Asthma complication type: unspecified Asthma persistence: unspecified Asthma severity: unspecified severity Qualified Code(s): J45.909 - Unspecified asthma, uncomplicated
[2018-11-26] MEDS: HYDROmorphone INJ 0.5 MG/0.5 ML SYR IV PRN ×3 (10:50→23:19)
[2018-11-26] MEDS: OXYBUTYNIN CHLORIDE 5 MG TAB PO PRN (16:31)
[2018-11-26] MEDS: ZOLPIDEM TARTRATE 5 MG TAB PO PRN (20:49)
--- NOTE | 2018-11-26 22:14 | Infectious Disease Progress Nt ---
Date of Service November 26, 2018 Assessment & Plan (1) Complicated UTI (urinary tract infection): 58-year-old female status post nephrectomy for carcinoma, with acute onset of right flank pain and hematuria with evidence of urinary tract infection with Enterococcus faecalis. Patient to transition from IV antibiotics to oral amoxicillin tomorrow as long as stable. Will follow. (2) Streptococcal infection: Subjective Patient seen in follow-up for urinary tract infection with enterococcus. Feeling better, no significant flank pain today. Remains afebrile. Review of Systems Review of Systems: All systems reviewed & are unremarkable except as noted in HPI & below Physical Exam Constitutional: WD/WN, vitals as above + acute distress, + ill appearing and + obese Eyes: PERRL, conjunctivae normal, anicteric sclerae ENMT: external ear and nose normal, oropharynx normal Neck: trachea midline, no thyromegaly neck nontender Respiratory: normal respiratory effort, lungs clear to auscultation normal percussion; no respiratory distress Cardiovascular: RRR, no murmur, no edema Heart Sounds: no gallop and no cardiac rub Gastrointestinal (Abdomen): Inspection/Auscultation: abdomen normal to inspection, + abdomen distended and + hyperactive bowel sounds Percussion/Palpation: + abdomen tender (Right flank and right-sided); no hepatosplenomegaly Musculoskeletal: no cyanosis or clubbing, extremities motor strength 5/5 Head/Neck/Chest: normocephalic, head atraumatic and neck supple Skin: no rashes, warm and dry Neurologic: patellar DTR's 2+ bilat, sensation intact moves all extremities and awake Psychiatric: A+Ox3, euthymic affect Lymphatic: no cervical or axillary lymphadenopathy no inguinal lymphadenopathy Results & Data Vital Signs (Past 12 Hours) Vital Signs Temp Pulse Resp BP Pulse Ox 11/26/18 16:06 36.7 C 62 24 123/72 96 Laboratory Results Laboratory Results - last 48 hr 11/25/18 11/26/18 11/26/18 08:09 05:21 05:21 WBC 11.31 H 11.10 H RBC 2.86 L 2.73 L Hgb 8.7 L 8.5 L Hct 27.5 L 26.5 L MCV 96.2 97.1 MCH 30.4 31.1 MCHC 31.6 L 32.1 RDW Std Deviation 53.1 H 54.5 H RDW Coeff of Maria Del Carmen 15.2 H 15.7 H Plt Count 407 H 379 MPV 9.0 9.0 Absolute Nucleated RBC 0.07 H Nucleated RBC % (auto) 0.6 Sodium 142 Potassium 3.9 Chloride 105 Carbon Dioxide 31 Anion Gap 6.0 BUN 9 Creatinine 1.08 Est Cr Clr Drug Dosing 92.2 Est GFR ( Amer) 65.5 Est GFR (Non-Af Amer) 56.5 BUN/Creatinine Ratio 8.1 L Glucose 98 Calcium 8.3 L Diagnostic Findings Microbiology 11/17/18 20:35 Blood Aerobic Blood Culture - Final No growth in Aerobic bottle after 5 days. 11/17/18 20:35 Blood Anaerobic Blood Culture - Final No growth in Anaerobic bottle after 5 days. 11/17/18 20:21 Blood Aerobic Blood Culture - Final No growth in Aerobic bottle after 5 days. 11/17/18 20:21 Blood Anaerobic Blood Culture - Final No growth in Anaerobic bottle after 5 days. 11/17/18 20:31 Urine,Indwelling Cath Urine Culture - Final Enterococcus faecalis CT abd pelvis IV con only CLINICAL HISTORY: follow up liver hematoma, any signs of abscess? COMPARISON STUDY: 11/21/2018 TECHNIQUE: The patient was scanned in a dynamic helical fashion during intravenous administration of 116 cc of Optiray 320. A dose lowering technique was utilized adhering to the principles of ALARA. CT DOSE: 2098.84 mGy.cm FINDINGS: Lower chest: There is a small right pleural effusion. There are basilar atelectatic changes. Liver: There is an 8.5 cm heterogeneous subcapsular mass at the level of the gal lbladder fossa. This likely represents a hematoma. This remain similar in size to the preceding examination. Gallbladder: Surgically absent. There is a 3.4 cm low-density rounded structure in the gallbladder fossa possibly representing a dropped gallstone Spleen: Normal in size and attenuation. Pancreas: Unremarkable. Adrenal glands: The 23 mm left adrenal nodule. There is a 19 mm right adrenal nodule. These remain unchanged from the prior study Kidneys: There is an 8 cm right-sided perinephric hematoma. Postsurgical changes are suspected within the right kidney. There is mild dilatation of the right renal collecting system which appears hyperdense suggesting hemorrhage. Bowel: There are no transition zone to indicate bowel obstruction. There is no evidence of acute diverticulitis. There are no findings to indicate acute appendicitis. Peritoneum: There is no intraperitoneal free air or abdominal ascites. Vasculature: The abdominal aorta is normal in course and caliber. Adenopathy: None. Pelvic viscera: There is a 10 cm bladder mass likely representing a hematoma. There is a prominent left-sided fundal uterine fibroid. There is mild presacral edema. Skeletal structures: No destructive osseous lesions are seen. IMPRESSION: 1. Persistent small right pleural effusion with basilar atelectasis 2. Stable 8.5 cm subcapsular hepatic mass consistent with a hematoma 3. Postsurgical changes involving the right kidney. 8 cm right perinephric hematoma 4. Mild dilatation the right renal collecting system which appears hyperdense. Hemorrhage is suspected. There is a 10 cm bladder hematoma. 5. No evidence of bowel obstruction. No evidence of free air 6. Fibroid uterus 7. Possible dropped gallstone in the region of the gallbladder fossa 8. Bilateral adrenal nodules unchanged from the prior study Electronically signed by: Román Whiting M.D. 11/24/2018 3:29 PM Dictated: 11/24/18 1518 Transcribed: 11/24/18 1518 PG Care Time/CCT Total # of Minutes Spent Total Time Spent with Patient: Total time spent is greater than 50% in coordination of care (as documented) at patient's floor/unit and/or counseling patient:
[2018-11-27] MEDS: LEVOTHYROXINE SODIUM 75 MCG TABLET PO SCH (04:58)
[2018-11-27] MEDS: OXYCODONE HCL IR 5 MG TAB (IMMEDIATE RELEASE) PO PRN ×4 (04:58→22:09)
[2018-11-27 06:11] LABS: Hematocrit (blood only) 28.5 % (37-47); Hemoglobin 8.8 g/dL (12.0-16.0); Mean Corpuscular Hgb Conc 30.9 g/dL (32-36); Mean Platelet Volume 9.1 fL (7.4-10.4); Nucleated RBC # (auto) 0.08 K/uL (0-0); Nucleated RBC % (auto) 0.7 %; Platelet Count 399 K/uL (130-400); RDW Coefficient of Variation 15.4 % (11.5-14.5); RDW Standard Deviation 54.7 fL (36.4-46.3); Red Blood Count 2.88 M/uL (4.2-5.4); White Blood Count 11.26 K/uL (4.8-10.8)
[2018-11-27 06:47] LABS: BUN Creatinine Ratio 9.1 (10-20); Calcium 8.5 mg/dl (8.5-10.1); Creatinine Clr Calc Pharmacy 81.6 ml/min; Est GFR (African American) 56.6; Est GFR (Non-African American) 48.8; Potassium 3.6 mmol/L (3.5-5.1)
[2018-11-27] MEDS: PIPERACILLIN/TAZOBACTAM 4.5 GM in DEXTROSE 5% 100 ML IV SCH ×2 (08:24→15:49)
[2018-11-27] MEDS: FUROSEMIDE 40 MG TAB PO SCH ×3 (08:25→15:50)
[2018-11-27] MEDS: OXYBUTYNIN CHLORIDE 5 MG TAB PO PRN ×2 (08:25→19:49)
[2018-11-27] MEDS: ATORVASTATIN 20 MG TAB PO SCH (08:26)
[2018-11-27] MEDS: LORATADINE 10 MG TAB PO SCH (08:26)
[2018-11-27] MEDS: LACTOBACILLUS ACIDOPHILUS (FLORANEX) TAB PO SCH (08:26)
[2018-11-27] MEDS: BISACODYL 5 MG TABEC PO SCH (08:27)
--- NOTE | 2018-11-27 08:58 | Urology Progress Note ---
Date of Service November 27, 2018 Assessment & Plan (1) Complicated UTI (urinary tract infection): 58yo comorbid female, Post p Right robotic lap assisted partial nephrectomy, extensive lysis of adhesions on 11/06/18, complicated post op course with Enterococcus UTI, and subcapsular liver hematoma, without abscess formation VSS, afebrile. Labs stable. H/H slightly improved today. Appreciate ID recommendations for abx coverage. Per nursing she is incontinent of urine, small clots noted. Continue to wean supplemental O2, use of IS and ambulation encouraged. Becoming short of breath with ambulation today with PT, she is very deconditioned at this point. Bladder spasms: - D/c B&Os to prepare to go home. - OKay to continue and pyridium and Ditropan BID added last evening, seems to be improving. Again, pt will require Cystoscopy as outpatient to further assess. Will arrange. She is stable from [facility] for [facility] to rehab facility to continue PT as previously recommended by hospital team. Tentative plan for Monday per notes. Subjective 58yo comorbid female, Post p Right robotic lap assisted partial nephrectomy, extensive lysis of adhesions on 11/06/18, complicated post op course with Enterococcus UTI, and subcapsular liver hematoma, without abscess formation Uneventful evening She has been incontinent of urine, no issues with retention. Spasms better controlled with addition of ditropan BID. Labs reviewed -H/H slightly improved. VSS, afebrile. Pt working with PT at time of evaluation, able to ambulate from bathroom to chair independently with walker. Becoming very short of breath but recovered with rest. Review of Systems Review of Systems: Constitutional: Denies fever, chills, sweats, malaise Eyes: Denies problem reported ENMT: Denies dizziness Resp: Denies cough, Denies shortness of breath CV: Denies JVD GI: Denies nausea/vomiting : see HPI MS: Denies swelling, stiffness Integ: Denies rash, erythema Neuro: Denies falls, weakness Psych: Denies behavior change Endo: Denies polyphagia, polydipsia Heme: Denies easy bleeding Genitourinary: as per Subjective / HPI Physical Exam Constitutional: no acute distress and not ill appearing Eyes: no nystagmus ENMT: Ears: no hearing impairment Neck: trachea midline Respiratory: no respiratory distress and no cough Cardiovascular: Vessels: no JVD Chest (Breasts): Chest: normal inspection of chest Gastrointestinal (Abdomen): Inspection/Auscultation: abdomen not distended and no abdominal edema Percussion/Palpation: abdomen soft; abdomen nontender Musculoskeletal: Head/Neck/Chest: normocephalic and head atraumatic Skin: no rashes, warm and dry Neurologic: awake; not confused and not obtunded Psychiatric: Orientation: alert and oriented x 3 Eye Contact: good eye contact Affect: no depressed affect Lymphatic: no lymphadenopathy and no lymphedema Results & Data Vital Signs (Past 12 Hours) Vital Signs Temp Pulse Resp BP Pulse Ox 11/27/18 07:50 36.5 C 58 L 18 108/64 97 11/26/18 22:50 36.9 C 61 18 132/67 94
[2018-11-27] MEDS: DOCUSATE SODIUM 100 MG CAP PO SCH ×2 (12:33→19:50)
[2018-11-27] MEDS: PHENAZOPYRIDINE HCL 200 MG TAB PO PRN ×2 (12:33→19:49)
--- NOTE | 2018-11-27 12:57 | Hospitalist Progress Note ---
Date of Service November 27, 2018 Assessment & Plan (1) Sepsis: Secondary to complicated UTI - urine culture from [facility] with de la rosa sensitive E faecalis Negative Blood Cx (from 11/17) Urine culture- E faecalis- pansensitive Change Zosyn IV to Amoxicillin PO for completed course of 14 days, ending 11/30. Patient currently afebrile, WBC 11.26 Continue to monitor CBC for possible signs of abscess that would require drainage. PT/OT- lengthy discussion had with patient regarding recommendations for inpatient rehab- patient currently refusing inpatient rehab, but she is agreeable to intensive rehab 3x/wk along with home health- Case Management currently working on rehab with [facility] after that. Progression--> CT 11/21 with 8cm hematoma in gall bladder fossa, no recent gall bladder surgery Repeat CT 11/24 with stable subcapsular liver hematoma, no signs of abscess (2) Liver hematoma: Reviewed with radiologist on 11/22- fluid appears to be blood. small liver laceration can be seen adjacent to blood collection. - present but smaller on previous scans repeat CT on 11/24, hematoma stable, no signs of abscess Hemoglobin 8.8 today CBC in AM (3) Complicated UTI (urinary tract infection): Cx at [facility] and [facility] both with E faecalis Zosyn for GN and anaerobe coverage-- will convert tomorrow to Amoxicillin Per ID rec- transition from Zosyn IV to Amoxicillin PO today Discontinued Dilaudid- patient utilizing PO Oxycodone 5mg q6 prn currently, with adequate pain relief- patient takes norco 10/325 prn at home for chronic pain- may benefit from outpatient pain management (4) Acute kidney injury: In setting of recent right sided partial nephrectomy, complicated UTI, and sepsis. Resumed Lasix 40mg TID on 11/26 Creatinine increased from 1.08 to 1.22 on 11/27- will decrease Lasix 40mg from TID to BID (5) Acute respiratory failure with hypoxia: Unclear etiology but breathing has been stable here-- patient with WENCESLAO-- has CPAP at home with setting of 17. Patient currently does not have home CPAP with her- patient's sister unable to bring home device in- patient refuses hospital CPAP. Continue home lasix to reduce edema Currently on O2- 2L via NC, sats 96% (6) Acute blood loss anemia: Secondary to gross hematura +/- hematoma formation in the liver--> concern of bleeding from operative site in the right kidney. Urology continuing to follow Hgb increased from 8.5 to 8.8 on 11/27 (7) Ileus: Resolved x-rays 11/18 with evidence of ileus-- resolved overnight 11/19. Patient continues to have soft to loose stool. Tolerating low residue diet without difficulty. 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 Medina. Urology on consult, appreciate recommendations per Dr. Carroll, margins were clear which indicates a good prognosis (9) Hematuria: Secondary to UTI or bleeding from nephrectomy site. Resolving- patient denies recent hematuria CT on 11/24 with evidence of hematoma in the bladder Daily CBCs ordered per Dr. Carroll, she will likely need a cystoscopy in office in near future (10) Bladder spasm: Using En Katarina and pyridium with significant reduction in bladder spasm symptoms Urology initiated ditropan BID last evening- per note, ok for patient to continue pyridium and ditropan (11) Obstructive sleep apnea on CPAP: Patient with known WENCESLAO- no CPAP in room and patient has not been using CPAP during this admission- pt refused hospital CPAP Patient states she is compliant at home with CPAP and uses it every night- has follow up in the next couple months for recheck of her CPAP settings (12) Asthma: No exacerbation at this time Cont usual outpatient inhalers etc (13) Hypothyroidism (acquired): Cont synthroid 75mcg daily (14) Hypertension: Home meds held in the setting of low BP on admission Lasix resumed TID on 11/26- to be decreased to BID dosing due to increased creatinine. (15) Peripheral neuropathy: Holding gabapentin in setting of FERNANDA, sepsis, etc (16) Hyperlipidemia: Continue home atorvastatin 20mg (17) Morbid obesity with BMI of 50.0-59.9, adult: BMI 59 (18) DVT prophylaxis: SCDs Chemical means contraindicated in setting of gross hematuria PT/OT Plan: likely home on Monday if she continues to do well and Hb remains stable- agreeable to rehab with home health Supervising Physician Co-Signing Physician Notes Attending Attestation: Pt seen/examined, chart reviewed, care plan d/w NAZARIO Fagan. I agree w/ the reed components of her documentation. R flank pain/bladder pain both improved. No new issues overnight. However, pt now stating she will not attend inpatient rehab - wants to return home. VSS, no fever gen - morbidly obese, NAD neck - no obvious JVD heart - RRR, s1 s2 lungs - CTA b/l abd - obese, soft, NT, surgical sites clean, BS+ ext - 1+ edema b/l (lymphedema) - no change labs acceptable, Cr 1.2 today A/P: 1. sepsis 2nd to complicated UTI - resolved. Can transition from IV abx therapy to PO amox to finish course (would Rx for total 14 days to cover for possibility of kidney infection/involvement). 2. acute blood loss anemia 2nd to probable bleeding from right kidney (operative site from nephrectomy) - stable H/H. 3. hematuria - resolved. 4. right flank and bladder pain - improved. dispo planning - home with - hopefully tomorrow Fco Petersen MD Subjective Patient states she feeling much better. She continues to have some right sided and suprapubic pain, but states it is much better than yesterday. She states her bladder spasms are much more managable since starting the en katarina. Patient feels ready to go home, but refuses to go to inpatient rehab, as she states she has strong family support and will do intensive outpatient therapy >3x/week with assistance from family as well as the community transportation. Continues to have some bladder incontinence with spasms, but denies awareness of any hematuria. The patient has been tolerating diet without issue.The patient denies any nausea, vomiting, chest pain, shortness of breath, fever, or chills. Review of Systems Constitutional: no fever, no chills and no sweats Ear, Nose, Mouth, Throat: no ear pain, no tinnitus and no dysphagia Respiratory: no chest congestion, no change in sputum and no dyspnea Cardiovascular: + edema; no chest pain and no dyspnea Additional Comments: LE Gastrointestinal: + abdominal pain (suprapubic); no nausea and no vomiting Genitourinary: + urinary incontinence (with spasms); no dysuria and no hematuria Musculoskeletal: + back pain chronic pain Integumentary: no new lesions and no skin ulcer lymphedema Neurologic: no falls, no syncope and no confusion Physical Exam Constitutional: WD/WN, vitals as above well developed, well nourished and + morbidly obese; no acute distress and no altered mental status Eyes: PERRL, conjunctivae normal, anicteric sclerae ENMT: external ear and nose normal, oropharynx normal top and bottom dentures Neck: trachea midline, no thyromegaly Respiratory: normal respiratory effort, lungs clear to auscultation (decreased breath sounds in bases) normal respiratory effort; no labored breathing Auscultation: + diminished lung sounds (bases); no crackles and no wheezes Cardiovascular: Rate/Rhythm: regular rate and regular rhythm Heart Sounds: normal S1 and normal S2; no gallop, no murmur and no cardiac rub Vessels: posterior tibial pulses present and dorsalis pedis pulses present; no JVD Extremities: + edema (bilateral lower extremity lymphadema) Gastrointestinal (Abdomen): normal bowel sounds, soft, nontender, no hepatosplenomegaly Inspection/Auscultation: normal bowel sounds; abdomen not distended and no visible herniation Percussion/Palpation: abdomen soft; abdomen nontender, no guarding and abdomen not rigid Musculoskeletal: no cyanosis or clubbing, extremities motor strength 5/5 Skin: no rashes, warm and dry Neurologic: patellar DTR's 2+ bilat, sensation intact Psychiatric: A+Ox3, euthymic affect Lymphatic: no cervical or axillary lymphadenopathy Results & Data Vital Signs (Past 12 Hours) Vital Signs Temp Pulse Resp BP Pulse Ox 11/27/18 07:50 36.5 C 58 L 18 108/64 97 Laboratory Results WBC 11.26 Hgb/Hct 8.8/28.5 Creat 1.22 Urine Culture from 11/17: Urine Culture Final 11/19/18-1407 Organism 1 Enterococcus faecalis [place]don Count >100,000 CFU/ml Sens Sensitivities to Follow E faecalis RX M.I.C. --- --------- Ampicillin S <=2 Ciprofloxacin I 2 Daptomycin S 2 Gent Synergy S <=500 Levofloxacin S 2 Nitrofurantoin S <=32 Penicillin S 2 Strep Synergy S <=1000 Tetracycline S <=4 Vancomycin S 2 PG Care Time/CCT Total # of Minutes Spent Total Time Spent with Patient: Total time spent is greater than 50% in coordination of care (as documented) at patient's floor/unit and/or counseling patient: 60 (1) Hematuria Hematuria type: gross Qualified Code(s): R31.0 - Gross hematuria (2) Hyperlipidemia Hyperlipidemia type: mixed hyperlipidemia Qualified Code(s): E78.2 - Mixed hyperlipidemia (3) Peripheral neuropathy Peripheral neuropathy type: polyneuropathy, unspecified Qualified Code(s): G62.9 - Polyneuropathy, unspecified (4) Sepsis Sepsis acute organ dysfunction status: unspecified Sepsis type: Streptococcus, other Qualified Code(s): A40.8 - Other streptococcal sepsis (5) Clear cell carcinoma of kidney Laterality: right Qualified Code(s): C64.1 - Malignant neoplasm of right kidney, except renal pelvis (6) Hypertension Hypertension type: essential hypertension Qualified Code(s): I10 - Essential (primary) hypertension (7) Asthma Asthma complication type: unspecified Asthma persistence: unspecified Asthma severity: unspecified severity Qualified Code(s): J45.909 - Unspecified asthma, uncomplicated
[2018-11-27] MEDS: AMOXICILLIN 500 MG CAP PO SCH (17:41)
[2018-11-27] MEDS: ACETAMINOPHEN 325 MG TAB PO PRN (19:24)
[2018-11-27] MEDS: ZOLPIDEM TARTRATE 5 MG TAB PO PRN (22:09)
[2018-11-28] MEDS: OXYCODONE HCL IR 5 MG TAB (IMMEDIATE RELEASE) PO PRN ×3 (04:31→16:27)
[2018-11-28] MEDS: PHENAZOPYRIDINE HCL 200 MG TAB PO PRN ×2 (04:31→11:07)
[2018-11-28] MEDS: LEVOTHYROXINE SODIUM 75 MCG TABLET PO SCH (05:26)
[2018-11-28 05:56] LABS: Hematocrit (blood only) 30.2 % (37-47); Hemoglobin 9.4 g/dL (12.0-16.0); Mean Corpuscular Hgb Conc 31.1 g/dL (32-36); Mean Platelet Volume 9.2 fL (7.4-10.4); Nucleated RBC # (auto) 0.03 K/uL (0-0); Nucleated RBC % (auto) 0.2 %; Platelet Count 399 K/uL (130-400); RDW Coefficient of Variation 15.7 % (11.5-14.5); RDW Standard Deviation 54.1 fL (36.4-46.3); Red Blood Count 3.05 M/uL (4.2-5.4); White Blood Count 10.11 K/uL (4.8-10.8)
[2018-11-28 06:31] LABS: BUN Creatinine Ratio 9.7 (10-20); Calcium 8.9 mg/dl (8.5-10.1); Creatinine Clr Calc Pharmacy 78.4 ml/min; Est GFR (African American) 53.9; Est GFR (Non-African American) 46.5; Potassium 3.4 mmol/L (3.5-5.1)
[2018-11-28] MEDS: LORATADINE 10 MG TAB PO SCH (07:38)
[2018-11-28] MEDS: AMOXICILLIN 500 MG CAP PO SCH ×3 (07:38→16:27)
[2018-11-28] MEDS: LACTOBACILLUS ACIDOPHILUS (FLORANEX) TAB PO SCH (07:38)
[2018-11-28] MEDS: FUROSEMIDE 40 MG TAB PO SCH ×3 (07:38→16:27)
[2018-11-28] MEDS: ATORVASTATIN 20 MG TAB PO SCH (07:38)
[2018-11-28] MEDS: BISACODYL 5 MG TABEC PO SCH (07:43)
[2018-11-28] MEDS: DOCUSATE SODIUM 100 MG CAP PO SCH (07:43)
[2018-11-28] MEDS: ACETAMINOPHEN 325 MG TAB PO PRN (07:43)
[2018-11-28] MEDS ORDERED: POTASSIUM CHLORIDE 20 MEQ TABCR PO SCH (09:00)
--- NOTE | 2018-11-28 09:02 | Urology Progress Note ---
Date of Service November 28, 2018 Assessment & Plan (1) Bladder spasm: (2) Complicated UTI (urinary tract infection): 58yo comorbid female, Post op Right robotic lap assisted partial nephrectomy, extensive lysis of adhesions on 11/06/18, complicated post op course with Enterococcus UTI, and subcapsular liver hematoma, without abscess formation. Pt continues to clinically and subjectively improve. She was more conversive today, with more energy and in good spirits. She is motivated to go home. She states she will have good support with her sister whom lives with her, and other family members that are close. She also has plans for home nursing to assist. She also did inform me she has supplemental O2 at her house for during the day PRN. Okay to [facility] from [facility]. Thank you for allowing us to participate in the acute care of Ms. Hurtado. Please reconsult us with additional questions, concerns or changes in patient status. Subjective 58yo comorbid female, Post op Right robotic lap assisted partial nephrectomy, extensive lysis of adhesions on 11/06/18, complicated post op course with Enterococcus UTI, and subcapsular liver hematoma, without abscess formation Continues to clinically and subjectively improve. She was able to get good sleep last night. No new issues or concerns. Labs reviewed -H/H continues to improve, WBC within normal limits. VSS, afebrile. She was more conversive today, in good spirits. She denies dysuria or hematuria. Bladder spasms controlled with ditropan BID alone. Review of Systems Review of Systems: All systems reviewed & are unremarkable except as noted in HPI & below Physical Exam Constitutional: no acute distress and not ill appearing Eyes: no nystagmus ENMT: Ears: no hearing impairment Neck: trachea midline Respiratory: no respiratory distress and no cough Cardiovascular: Vessels: no JVD Chest (Breasts): Chest: normal inspection of chest Gastrointestinal (Abdomen): Inspection/Auscultation: abdomen not distended and no abdominal edema Percussion/Palpation: abdomen soft; abdomen nontender Musculoskeletal: Head/Neck/Chest: normocephalic and head atraumatic Skin: no rashes, warm and dry Neurologic: awake; not confused and not obtunded Psychiatric: Orientation: alert and oriented x 3 Eye Contact: good eye contact Affect: no depressed affect Lymphatic: no lymphadenopathy and no lymphedema Results & Data Vital Signs (Past 12 Hours) Vital Signs Temp Pulse Pulse Resp BP Pulse Ox 11/28/18 07:57 36.9 C 64 20 124/70 93 11/27/18 22:53 36.8 C 56 L 18 116/63 95 Laboratory Results Laboratory Results - last 48 hr 11/27/18 11/27/18 11/28/18 05:25 05:25 04:54 WBC 11.26 H 10.11 RBC 2.88 L 3.05 L Hgb 8.8 L 9.4 L Hct 28.5 L 30.2 L MCV 99.0 99.0 MCH 30.6 30.8 MCHC 30.9 L 31.1 L RDW Std Deviation 54.7 H 54.1 H RDW Coeff of Maria Del Carmen 15.4 H 15.7 H Plt Count 399 399 MPV 9.1 9.2 Absolute Nucleated RBC 0.08 H 0.03 H Nucleated RBC % (auto) 0.7 0.2 Sodium 140 Potassium 3.6 Chloride 99 Carbon Dioxide 36 H Anion Gap 5.0 BUN 11 Creatinine 1.22 H Est Cr Clr Drug Dosing 81.6 Est GFR ( Amer) 56.6 Est GFR (Non-Af Amer) 48.8 BUN/Creatinine Ratio 9.1 L Glucose 103 H Calcium 8.5 Magnesium 11/28/18 11/28/18 04:54 04:54 WBC RBC Hgb Hct MCV MCH MCHC RDW Std Deviation RDW Coeff of Maria Del Carmen Plt Count MPV Absolute Nucleated RBC Nucleated RBC % (auto) Sodium 139 Potassium 3.4 L Chloride 98 Carbon Dioxide 35 H Anion Gap 6.0 BUN 12 Creatinine 1.27 H Est Cr Clr Drug Dosing 78.4 Est GFR ( Amer) 53.9 Est GFR (Non-Af Amer) 46.5 BUN/Creatinine Ratio 9.7 L Glucose 105 H Calcium 8.9 Magnesium 2.2
[2018-11-28] MEDS: OXYBUTYNIN CHLORIDE 5 MG TAB PO PRN (11:06)
--- NOTE | 2018-11-28 14:54 | Hospitalist Progress Note ---
Date of Service November 28, 2018 Assessment & Plan (1) Sepsis: Secondary to complicated UTI - urine culture from [facility] with de [place] rosa sensitive E faecalis Negative Blood Cx (from 11/17) Urine culture- E faecalis- pansensitive D/C Zosyn IV Amoxicillin 500mg PO TID until 11/30 for completion of 14 day total course. Afebrile, WBC 10.11 PT/OT- despite lengthy conversation regarding recommendation for inpatient rehab, patient prefers to have home health- set up already by [facility] Progression--> CT 11/21 with 8cm hematoma in gall bladder fossa, no recent gall bladder surgery Repeat CT 11/24 with stable subcapsular liver hematoma, no signs of abscess (2) Liver hematoma: Reviewed with radiologist on 11/22- fluid appears to be blood. small liver laceration can be seen adjacent to blood collection. - present but smaller on previous scans repeat CT on 11/24, hematoma stable, no signs of abscess Hemoglobin improved to 9.4 today (3) Complicated UTI (urinary tract infection): Cx at [facility] and [facility] both with E faecalis Zosyn for GN and anaerobe coverage-- will convert tomorrow to Amoxicillin Per ID rec- transitioned to Amoxicillin 500mg PO TID to be completed 11/30 for a total course of 14 days. Patient utilizing PO Oxycodone 5mg q6 prn currently, with adequate pain relief- patient takes norco 10/325 prn at home for chronic pain- may benefit from outpatient pain management in the future. (4) Acute kidney injury: In setting of recent right sided partial nephrectomy, complicated UTI, and sepsis. Resumed Lasix 40mg TID on 11/26 Creatinine remains 1.27. Lasix decreased from TID to BID dosing- patient to repeat BMP within the next 3-5 days- will need to also look for signs of volume overload (5) Acute respiratory failure with hypoxia: Unclear etiology but breathing has been stable here-- patient with WENCESLAO-- has CPAP at home with setting of 17. Patient currently does not have home CPAP with her- patient's sister unable to bring home device in- patient refuses hospital CPAP. Continue home lasix to reduce edema Currently on O2- 2L via NC, sats 93% (6) Acute blood loss anemia: Secondary to gross hematura +/- hematoma formation in the liver--> concern of bleeding from operative site in the right kidney. Hgb increased from 8.5 on 11/26 to 9.4 today Repeat CBC within the next week (7) Ileus: Resolved x-rays 11/18 with evidence of ileus-- resolved overnight 11/19. Patient continues to have soft to loose stool. Tolerating low residue diet without difficulty. (8) Clear cell carcinoma of kidney: Right sided- S/P right partial nephrectomy at [facility] on 11/07/[address] Medina. Urology on consult, appreciate recommendations per Dr. Carroll, margins were clear which indicates a good prognosis (9) Hematuria: Secondary to UTI or bleeding from nephrectomy site. Resolved- patient denies recent hematuria CT on 11/24 with evidence of hematoma in the bladder per Dr. Carroll, she will likely need a cystoscopy in office in near future (10) Bladder spasm: Symptoms much improved from admission Patient to continue ditropan 5mg BID on outpatient basis per urology (11) Obstructive sleep apnea on CPAP: Patient with known WENCESLAO- no CPAP in room and patient has not been using CPAP during this admission- pt refused hospital CPAP Patient states she is compliant at home with CPAP and uses it every night- has follow up in the next couple months for recheck of her CPAP settings (12) Asthma: No exacerbation at this time Cont usual outpatient inhalers etc (13) Hypothyroidism (acquired): Cont synthroid 75mcg daily (14) Hypertension: Home meds held in the setting of low BP on admission Lasix resumed TID on 11/26 Will discharge patient on Lasix 40mg PO BID due to bump in creatinine- discussion had regarding daily weight, diet, and signs of volume overload (15) Peripheral neuropathy: Holding gabapentin in setting of FERNANDA, sepsis, etc Will continue to hold gabapentin at discharge- may be restarted pending repeat BMP at the discretion of PCP (16) Hyperlipidemia: Continue home atorvastatin 20mg (17) Morbid obesity with BMI of 50.0-59.9, adult: BMI 59 (18) CHF (congestive heart failure): Per patient history, patient with history of CHF from long standing untreated WENCESLAO. On Lasix 40mg PO TID at home- lasix reduced to 40mg BID for discharge given rise in creatinine. Patient instructed on importance of daily weights at home to monitor for volume overload. TTE on 10/09/18 shows mildy dilated left ventricle, borderline LVH, normal systolic function. LVEF 55-60%. (19) DVT prophylaxis: SCDs Chemical means contraindicated in setting of gross hematuria Plan: likely home on Monday if she continues to do well and Hb remains stable- agreeable to rehab with home health Supervising Physician Co-Signing Physician Notes Attending Attestation - Pt seen/examined, chart reviewed, care plan d/w NAZARIO Fagan. I agree w/ the reed components of her documentation. Please see my attestation from the d/c summary with same date of 11/28/18 for more details. Fco Petersen MD Subjective Patient feeling better today. States she feels she is ready for discharge. The patient continues to have bladder spasms, but the pain is much more manageable at this point, with reduced urinary incontinence. Patient denies awareness of hematuria. Review of Systems Eyes: as per Subjective / HPI Cardiovascular: + edema (B/L LE- chronic); no chest pain and no dyspnea Gastrointestinal: + abdominal pain (suprapubic- improving); no nausea and no vomiting Genitourinary: + urinary incontinence (with spasms- decreasing in frequency); no dysuria and no hematuria Musculoskeletal: + back pain chronic pain Integumentary: lymphedema Physical Exam Constitutional: WD/WN, vitals as above well developed, well nourished and + morbidly obese; no acute distress and no altered mental status Eyes: PERRL, conjunctivae normal, anicteric sclerae ENMT: external ear and nose normal, oropharynx normal Neck: trachea midline, no thyromegaly Respiratory: normal respiratory effort, lungs clear to auscultation (decreased breath sounds in bases) normal respiratory effort; no labored breathing Auscultation: + diminished lung sounds (bases); no crackles and no wheezes Cardiovascular: RRR, no murmur, no edema Rate/Rhythm: regular rate and regular rhythm Heart Sounds: normal S1 and normal S2; no gallop, no murmur and no cardiac rub Palpation: + palpable S3 Vessels: posterior tibial pulses present and dorsalis pedis pulses present; no JVD Extremities: + edema (bilateral lower extremity lymphadema) Gastrointestinal (Abdomen): normal bowel sounds, soft, nontender, no hepatosplenomegaly Inspection/Auscultation: abdomen not distended and no visible herniation Percussion/Palpation: no guarding and abdomen not rigid Musculoskeletal: no cyanosis or clubbing, extremities motor strength 5/5 Skin: no rashes, warm and dry Neurologic: patellar DTR's 2+ bilat, sensation intact Psychiatric: A+Ox3, euthymic affect Lymphatic: no cervical or axillary lymphadenopathy Results & Data Vital Signs (Past 12 Hours) Vital Signs Temp Pulse Resp BP Pulse Ox 11/28/18 07:57 36.9 C 64 20 124/70 93 Laboratory Results 11/28/18 11/28/18 11/28/18 Range/Units 04:54 04:54 04:54 WBC 10.11 (4.8-10.8) K/uL RBC 3.05 L (4.2-5.4) M/uL Hgb 9.4 L (12.0-16.0) g/dL Hct 30.2 L (37-47) % MCV 99.0 (80-100) fL MCH 30.8 (25-34) pg MCHC 31.1 L (32-36) g/dL RDW Std Deviation 54.1 H (36.4-46.3) fL RDW Coeff of Maria Del Carmen 15.7 H (11.5-14.5) % Plt Count 399 (130-400) K/uL MPV 9.2 (7.4-10.4) fL Absolute Nucleated RBC 0.03 H (0-0) K/uL Nucleated RBC % (auto) 0.2 % Sodium 139 (136-145) mmol/L Potassium 3.4 L (3.5-5.1) mmol/L Chloride 98 (98-107) mmol/L Carbon Dioxide 35 H (21-32) mmol/L Anion Gap 6.0 (3-11) BUN 12 (7-18) mg/dl Creatinine 1.27 H (0.6-1.2) mg/dl Est Cr Clr Drug Dosing 78.4 ml/min Est GFR ( Amer) 53.9 Est GFR (Non-Af Amer) 46.5 BUN/Creatinine Ratio 9.7 L (10-20) Glucose 105 H (70-99) mg/dl Calcium 8.9 (8.5-10.1) mg/dl Magnesium 2.2 (1.8-2.4) mg/dl PG Care Time/CCT Total # of Minutes Spent Total Time Spent with Patient: Total time spent is greater than 50% in coordination of care (as documented) at patient's floor/unit and/or counseling patient:45 (1) Hematuria Hematuria type: gross Qualified Code(s): R31.0 - Gross hematuria (2) Hyperlipidemia Hyperlipidemia type: mixed hyperlipidemia Qualified Code(s): E78.2 - Mixed hyperlipidemia (3) Peripheral neuropathy Peripheral neuropathy type: polyneuropathy, unspecified Qualified Code(s): G62.9 - Polyneuropathy, unspecified (4) Sepsis Sepsis acute organ dysfunction status: unspecified Sepsis type: Streptococcus, other Qualified Code(s): A40.8 - Other streptococcal sepsis (5) Clear cell carcinoma of kidney Laterality: right Qualified Code(s): C64.1 - Malignant neoplasm of right kidney, except renal pelvis (6) Hypertension Hypertension type: essential hypertension Qualified Code(s): I10 - Essential (primary) hypertension (7) Asthma Asthma complication type: unspecified Asthma persistence: unspecified Asthma severity: unspecified severity Qualified Code(s): J45.909 - Unspecified asthma, uncomplicated
--- NOTE | 2018-11-28 16:02 | Discharge Summary ---
Date of Service November 28, 2018 Admission HPI Per Admitting Provider Patient is a 58 years old female with past medical history of clear cell carcinoma of the right kidney status post right partial nephrectomy day 11, congestive heart failure, obstructive sleep apnea on CPAP, hypothyroidism, hyperlipidemia, asthma, anxiety, now with acute kidney injury woke up this morning with severe right-sided abdominal and flank pain and gross hematuria patient felt bloated and nauseated. Patient was first seen in [facility] emergency department where she was evaluated and treated for right-sided abdominal and flank pain and gross hematuria. She was transferred from the emergency room at [facility] to [facility] this evening. CT scan at [facility] was done which showed atelectasis in the lung bases, small esophageal hiatal hernia, 2.5 cm hypoattenuating lesion in the right lobe of the liver unchanged from the prior study,no pancreatic pathology is observed. The gallbladder is surgically absent. The 4.9 x 2.7cm below the lobe appearing soft tissue density is seen within the gallbladder fossa region without interval change. Bilateral abdominal gland lesion with interval change. Postsurgical changes are seen in the right kidney. There is perihepatic fat stranding on the right side adjacent to the area of the recent surgery. Adjacent to the inferior and lateral aspect of the right kidney somewhat ill defined low density area is seen with associated tiny pockets of air within it suspicious for infection. This area measures up to approximately 7.6 x 7.15 cm seen in the image 67. 2. In the creatinine talk how that plane this area measures approximately 5.4 centimeters. There is considerable adjacent fat stranding extending into the perihepatic area. A tiny pocket of air is seen in relation to the anterior and inferior aspect of the liver seen in the image 53 series 2. And overall evaluation of the findings are suspicious for infection in this area with inflammatory changes and phlegmon. Labs from [facility] reviewed: Potassium 4 chloride 93 CO2 32 anion gap 13 BUN 28, creatinine 1.47, GFR 39, glucose 124, ALT AST 23/84 lactate 1.1 white blood cell 18.8 hemoglobin 12.5 hematocrit 36.9 platelets 289 neutrophils 87.4 ;urine :positive leukocyte esterase 3+, positive nitrate, white blood cells 0-2, red blood cells many, no bacteria in urine, many hyaline casts. When patient arrived to the [facility] labs were reviewed again: WBC 23.16, hemoglobin 11.2 hematocrit 34.1 platelets 269, sodium 136, creatinine 1.31, GFR 44.8, AST 18, ALT 29 BNP 593, urine: Over 30 RBCs, 10-30 V BCs, 4+ urine bacteria. ABG : 7.4, PCO2 42, PO2 of 72 and 10 L nonrebreather, HCO3 25. Patient was given Bumex 1 mg IV, placed on CPAP, oxygenation improved. Patient was admitted to PCU on telemetry for further evaluation and treatment. The case was discussed with Dr. Medina urology and he recommended to continue broad-spectrum antibiotics tonight and have him hold 2 units of blood if H&H drops due to gross hematuria. Principal Diagnosis Sepsis Discharge Exam Constitutional WD/WN, vitals as above well developed, well nourished and + morbidly obese; no acute distress and no altered mental status Eyes PERRL, conjunctivae normal, anicteric sclerae ENMT external ear and nose normal, oropharynx normal Neck trachea midline, no thyromegaly Respiratory normal respiratory effort, lungs clear to auscultation (decreased breath sounds in bases) normal respiratory effort; no labored breathing Auscultation: + diminished lung sounds (bases); no crackles and no wheezes Cardiovascular RRR, no murmur, no edema Rate/Rhythm: regular rate and regular rhythm Heart Sounds: normal S1 and normal S2; no gallop, no murmur and no cardiac rub Palpation: + palpable S3 Vessels: posterior tibial pulses present and dorsalis pedis pulses present; no JVD Extremities: + edema (bilateral lower extremity lymphedema- at baseline) Gastrointestinal (Abdomen) normal bowel sounds, soft, nontender, no hepatosplenomegaly Inspection/Auscultation: abdomen not distended and no visible herniation Percussion/Palpation: no guarding and abdomen not rigid Musculoskeletal no cyanosis or clubbing, extremities motor strength 5/5 Skin no rashes, warm and dry Neurologic patellar DTR's 2+ bilat, sensation intact Psychiatric A+Ox3, euthymic affect Lymphatic no cervical or axillary lymphadenopathy Discharge Data Allergies Allergy/AdvReac Type Severity Reaction Status Date / Time oxycodone [From Percocet] AdvReac Vomiting Verified 11/06/18 09:47 Consultations 11/17/18 20:12 Consult Urology Routine 11/17/18 21:06 Consult Infectious Diseases Routine Ordered Studies 11/21/18 14:58 CT abd pelvis IV con only Urgent IMPRESSION: 1. Interval development of a 8.7 cm subcapsular collection in the gallbladder fossa. Differential considerations include abscess, hematoma, or bile leak. Presumably there has been no recent biliary surgery, which given the history of fever, would favor this collection to be an abscess. Surgical consultation is recommended. 2. Postsurgical changes of partial right nephrectomy. Perinephric hematoma as on prior exam. Sterility of these hematoma cannot be confirmed, although the lack of change since the prior exam may favor sterility. 3. Findings suggest a dropped gallstone. This is unchanged from prior CT. 4. Fibroid uterus. 5. Interval development of a small right pleural effusion with increased bibasilar atelectasis. 11/24/18 13:00 CT abd pelvis IV con only Urgent IMPRESSION: 1. Persistent small right pleural effusion with basilar atelectasis 2. Stable 8.5 cm subcapsular hepatic mass consistent with a hematoma 3. Postsurgical changes involving the right kidney. 8 cm right perinephric hematoma 4. Mild dilatation the right renal collecting system which appears hyperdense. Hemorrhage is suspected. There is a 10 cm bladder hematoma. 5. No evidence of bowel obstruction. No evidence of free air 6. Fibroid uterus 7. Possible dropped gallstone in the region of the gallbladder fossa 8. Bilateral adrenal nodules unchanged from the prior study Hospital Course (1) Sepsis: Patient with history of clear cell renal carcinoma s/p right partial nephrectomy on 11/06/[address] Carroll presented with sepsis with hematuria and acute blood loss anemia secondary to complicated UTI. Patient was transferred from [facility], with urine culture +E. faecalis, pansensitive. Repeat urine culture during admission also with pansensitive for E faecalis. Patient started on Zosyn, with transition 11/27 to Amoxicillin 500mg PO TID until 11/30/18 for a [address] abd/pelvis showed 8cm hematoma in gallbladder fossa, subsequent CT three days later demonstrated table subcapsular liver hematoma without sign of abscess. Patient deconditioned from hospital stay, with recommendations from PT/OT for inpatient rehab. Despite lengthy conversation regarding inpatient rehab, patient opted for home health with outpatient therapy. (2) Liver hematoma: Reviewed with radiologist on 11/22- fluid appears to be blood. small liver laceration can be seen adjacent to blood collection. - present but smaller on previous scans repeat CT on 11/24, hematoma stable, no signs of abscess Hemoglobin improved to 9.4 on discharge from 8.5. (3) Complicated UTI (urinary tract infection): Cx at [facility] and [facility] both with E faecalis Zosyn for GN and anaerobe coverage-- will convert tomorrow to Amoxicillin Per ID rec- transitioned to Amoxicillin 500mg PO TID to be completed 11/30 for a total course of 14 days. Patient utilizing PO Oxycodone 5mg q6 prn currently, with adequate pain relief- patient takes norco 10/325 prn at home for chronic pain- may benefit from outpatient pain management in the future (4) Acute kidney injury: In setting of recent right sided partial nephrectomy, complicated UTI, and sepsis. Resumed Lasix 40mg TID on 11/26, however creatinine remains elevated at 1.27 this morning. Dosing was decreased from TID dosing to BID dosing. Patient educated on signs of volume overload and to check daily weights at home and look for signs of volume overload in the setting of decreased diuretic dosing. Recommendation for patient to repeat BMP within the next 3-5 days at discretion of PCP. (5) Acute respiratory failure with hypoxia: Unclear etiology but breathing has been stable here-- patient with WENCESLAO-- has CPAP at home with setting of 17. Patient currently does not have home CPAP with her- patient's sister unable to bring home device in- patient refuses hospital CPAP. Patient 93% on room air at discharge. (6) Acute blood loss anemia: Secondary to gross hematuria +/- hematoma formation in the liver Hgb increased from 8.5 on 11/26 to 9.4 on day of discharge. Repeat CBC within the next week at discretion of PCP. (7) Ileus: X-rays 11/18 with evidence of ileus-- resolved overnight 11/19. Patient continues to have soft to loose stool. Tolerating diet without difficulty. (8) Clear cell carcinoma of kidney: Right sided- S/P right partial nephrectomy at [facility] on 11/07/[address]. Carroll, margins were clear which indicates a good prognosis. (9) Hematuria: Secondary to UTI or bleeding from nephrectomy site. Resolved- patient denies recent hematuria CT on 11/24 with evidence of hematoma in the bladder Per Dr. Carroll, she will likely need a cystoscopy in office in near future- patient to see Dr. Carroll outpatient. (10) Bladder spasm: Symptoms much improved from admission. Patient sent home with new prescription for ditropan 5mg BID on outpatient basis per urology. (11) Obstructive sleep apnea on CPAP: Patient with known WENCESLAO- no CPAP in room and patient has not been using CPAP during this admission- pt refused hospital CPAP Patient states she is compliant at home with CPAP and uses it every night- has follow up in the next couple months for recheck of her CPAP settings (12) Asthma: No exacerbation at this time Cont usual outpatient inhalers etc (13) Hypothyroidism (acquired): Cont synthroid 75mcg daily (14) Hypertension: Home meds held in the setting of low BP on admission Lasix resumed TID on 11/26 Will discharge patient on Lasix 40mg PO BID due to bump in creatinine- discussion had regarding daily weight, diet, and signs of volume overload (15) Peripheral neuropathy: Holding gabapentin in setting of FERNANDA, sepsis, etc Will continue to hold gabapentin at discharge- may be restarted pending repeat BMP at the discretion of PCP (16) Hyperlipidemia: Continue home atorvastatin 20mg (17) Morbid obesity with BMI of 50.0-59.9, adult: BMI 59 (18) CHF (congestive heart failure): Per patient history, patient with history of CHF from long standing history of untreated WENCESLAO. On Lasix 40mg PO TID at home- lasix reduced to 40mg BID for discharge given rise in creatinine. Patient instructed on importance of daily weights at home to monitor for volume overload. TTE on 10/09/18 shows mildy dilated left ventricle, borderline LVH, normal systolic function. LVEF 55-60%. (19) DVT prophylaxis: SCDs Chemical means were contraindicated in setting of her gross hematuria Patient set up with home health at discharge Total Time Total Time Spent Total Time Spent (In Minutes): 60 Total Time Includes: Examination of the Patient, Discharge Planning, Medication Reconciliation, Communication With Other Providers and Other (concurrent roading with attending physician) Discharge Plan Discharge Items Patient Disposition: Home - Home Health Services Reason For Visit: PYELONEPHRITIS W/HEMATURIA Discharge Diagnosis: Sepsis secondary to complicated urinary tract infection Health Concerns: History of tobacco use Goals: Proper wound healing Activity: As commented below Activity Comment: As tolerated with walker Lifting: None Bathing: No limitations Sexual Activity: When tolerated Exercise/Sports: Gradually increase as tolerated Weightbearing: Full weightbearing Non-emergency contact: Primary Care Provider Call non-emergency contact if: you have any medication questions, your symptoms worsen, your pain is worsening, you have a fever and your temperature is above 101.5 Follow-up/Referrals: Alonzo Medina MD [Physician] - (Please, follow up at [facility]rology Office. *A nurse from this office will call you with the appointment information. If you have any questions, call the office at [phone].) Eben Cortes D.O. [Primary Care Provider] - 12/11/18 10:15 am (Please, follow up with Dr. Cortes on MondayDecember 11 at 10:15 am. *If you need to change this appointment, call the office at [phone].) Diet: Heart Healthy Addtl Attending Provider Instructions: Complete abstinence from tobacco use to promote wound healing. Your home lasix (furosemide) dosage was decreased from 40mg three times per day to 40mg twice a day. Please monitor weight daily. If weight gain >3 pounds, please contact PCP for possible adjustment of lasix (furosemide) dosing. Recommendation for repeat basic metabolic panel within the next week to re-check renal function at the discretion of your primary care provider. Pending Studies at Discharge: No Visit Report Forms: Smoking Cessation Stand-Alone Forms: My [facility] [employer], Opioid Pain Management Medications and DC Order Prescriptions: New amoxicillin 500 mg Capsule 500 mg PO TIDM Qty: 6 RF: 0 oxybutynin chloride 5 mg Tablet 5 mg PO BID PRN (Reason: bladder spasms) Qty: 60 RF: 0 Lactobacillus acidoph-L.bulgar [Floranex] 1 million cell Tablet 4 tab PO DAILY Qty: 120 RF: 0 Continued buspirone 5 mg Tablet 5 mg PO TID RF: 0 fluticasone propion-salmeterol [Advair Diskus] 250-50 mcg/dose Blister With Device 1 inh INHALATION BID PRN (Reason: sob) RF: 0 atorvastatin 20 mg Tablet 20 mg PO QAM RF: 0 meloxicam 15 mg Tablet 15 mg PO QAM RF: 0 potassium chloride 10 mEq Tablet Extended Release 10 meq PO TID RF: 0 hydrocodone-acetaminophen [[place]] 10-325 mg Tablet 1 tab PO Q6H PRN (Reason: Pain) RF: 0 acetaminophen 500 mg Tablet 1,000 mg PO Q6H PRN (Reason: Pain) RF: 0 lisinopril 10 mg Tablet 10 mg PO QAM RF: 0 gabapentin 300 mg Capsule 300 mg PO TID RF: 0 albuterol sulfate 90 mcg/actuation Hfa Aerosol Inhaler 2 puff INHALATION Q6H PRN (Reason: sob) RF: 0 loratadine 10 mg Tablet 10 mg PO QAM RF: 0 clonidine HCl 0.2 mg Tablet 0.2 mg PO HS RF: 0 levothyroxine [Synthroid] 75 mcg Tablet 75 mcg PO QAM RF: 0 oxycodone 5 mg tablet 5 mg PO BID PRN (Reason: pain) Qty: 14 RF: 0 docusate sodium [Colace] 100 mg capsule 100 mg PO BID PRN (Reason: constipation) Qty: 60 RF: 2 Changed furosemide [Lasix] 40 mg Tablet 40 mg PO BID Qty: 0 RF: 0 Discharge Orders: Discharge Order (Routine); Ordered 11/28/18 Ordered By: Jeny Lopez/Other Patient Handouts: Quit Smoking Plan, Quit Smoking Get Support Admission Data Admit Date/Time: 11/17/18 19:38 Attending Provider: Fco Petersen Admit Provider: Bharath العراقي Primary Care Provider: Eben Cortes Other Providers: Alonzo Medina I. ; Jenny Boykin Other Interventions: Discharge Summary Assessment (RN) Last Done: 11/28/18 17:01 DC Date/Time DO NOT enter until pt leaves facility: 11/28/18 18:12 Supervising Physician Co-Signing Physician Notes Attending Attestation and Discharge Note: Pt seen/examined, chart reviewed, discharge care plan d/w NAZARIO Fagan. I agree w/ the reed components of her discharge summary except -- no "palpable s3" on my examination. Complicated 58yo female with recent right-sided partial nephrectomy for clear cell carcinoma who presented as a transfer from [facility] due to multiple issues including sepsis, complicated UTI, hematuria, suspected bleeding from nephrectomy site, and acute hypoxic respiratory failure. Urine cx at [place] and [facility] grew enterococcus. Blood cultures were fortunately negative. She also had acute blood loss anemia due to the hematuria as well as hematoma formation seen on CT scan of abd/pelvis. Course was complicated by severe right flank and suprapubic pain requiring copious narcotics to remain comfortable. This was in the setting of chronic narcotic use as outpatient due to chronic low back pain. She made gradual improvement with IV antibiotics during her stay and was transitioned to PO amoxicillin at discharge to complete 14 days in total of IV/PO antibiotics. Urology provided reed recommendations for her care, and no operative intervention was required of the hematoma seen on imaging nor the gross hematuria. She n ever required PRBCs either. Acute hypoxic respiratory failure resolved quickly with use of IV diuretics; thus, she may have had acute diastolic CHF briefly. She was very deconditioned and PT/OT both advised inpatient rehab; however the patient refused such, instead opting for home with home health. Discharge exam: gen - morbidly obese, NAD mouth - MMM neck - no JVD heart - RRR, s1 s2 lungs - CTA b/l; mildly decreased BS bases abd - surgical sites well-healed; BS+; NT; ND; soft ext - chronic edema, pulses 2+ b/l Agree with repeat CBC, BMP within 5 days of discharge to ensure stability. Close urology f/u will be needed as well. Fco Petersen MD
== END 2018-11-28 18:12 | disposition home health service (06) | DRG 871 ==
LOC: 2S 19:38 → SUATTDRO 19:38 → 3N 11-20 13:56